=== PATIENT | female | born 1945 | race Caucasian/White ===

== ENCOUNTER 2017-08-14 08:18 | Inpatient (IN) ==
[2017-08-14] MEDS ORDERED: methylPREDNISolone 125 MG/2 ML VIAL IVP ONE (08:49)
--- NOTE | 2017-08-14 08:54 | Emergency Department Note ---
Disposition Clinical Impression: Acute exacerbation of chronic obstructive airways disease, Hypercarbia, Respiratory distress Disposition: Admitted As Inpatient Condition: Fair Referrals: Phu Hensley DO [Primary Care Provider] - Forms: ED Satisfaction Letter Time of Disposition: 11:14 SOB HPI - General Chief Complaint: ED Shortness of Breath/Dyspnea Stated Complaint: LISS-headache Time Seen by Provider: 08/14/17 08:29 Source: family Limitations: physical limitation Nursing Notes Reviewed: Yes Vital Signs Reviewed: Yes - History of Present Illness 72-year-old female in apparent respiratory distress was brought to the emergency department by her [id number]. The patient is a rather poor historian herself, however the [id number] states that the patient has been dealing with low oxygen saturation at home for the past several days. The [id number] does describe a persistent cough that is productive of a whitish colored sputum. [id number]-tek denies any known fevers or complaints of chest pain, vomiting, abdominal pain, or noticeable hemoptysis. The patient does have a history of COPD, asthma, and has been in acute respiratory distress syndrome in the past. She denies any smoking. She is on oxygen by nasal cannula at 3 L/m continuously at home. The syeqaser-et-zss states that the patient has seen a legal services manager in the past but this has been quite some time since she has had formal pulmonology evaluation. The patient does state that she sustained a mechanical fall earlier this morning. She denies any known head injury, however she does complain of a worsening headache from her baseline "headaches". Pt Subjective Complaint: shortness of breath, cough Onset (ago): unknown Severity: severe Improves with: nothing Worsens with: nothing Known history of: COPD, asthma Associated symptoms: Reports: cough, wheezing, sputum production. Denies: chest pain, pain with inspiration, fever, orthopnea, hemoptysis, nausea/vomiting , abdominal pain Treatment prior to arrival: oxygen Cough present: Yes Cough Description: Involuntary Cough Frequency: Persistent Sputum production: Yes Sputum Amount: Moderate Sputum Color: Cream - Related Data Home oxygen amount: 3 liters Home Medications Medication Instructions Recorded Confirmed Albuterol Sulfate 2.5 mg IH Q4HR PRN 10/29/16 08/14/17 Amitriptyline [Elavil] 25 mg PO DAILY 10/29/16 08/14/17 BuPROPion SR (12 HR) [Wellbutrin 150 mg PO DAILY 10/29/16 08/14/17 SR] Diltiazem CD (24hr) [Cardizem CD] 240 mg PO DAILY 10/29/16 08/14/17 Furosemide [Lasix] 40 mg PO DAILY 10/29/16 08/14/17 LORazepam [Ativan] 1 mg PO BID PRN 10/29/16 08/14/17 Magnesium Oxide [Magnesium] 400 mg PO DAILY 10/29/16 08/14/17 Metoprolol [Lopressor] 50 mg PO BID 10/29/16 08/14/17 Nitroglycerin [Nitrostat] 0.4 mg SL Q5M PRN 10/29/16 08/14/17 Pantoprazole Sodium [Protonix] 40 mg PO DAILY 10/29/16 08/14/17 PredniSONE [Madhu] 5 mg PO MOWEFR 10/29/16 08/14/17 Roflumilast [Daliresp] 500 mcg PO DAILY 10/29/16 08/14/17 Sertraline [Zoloft] 100 mg PO DAILY 10/29/16 08/14/17 Acetaminophen/Butalbital/Caffe 1 each PO Q6HR PRN 08/14/17 08/14/17 [Fioricet] Cyclobenzaprine [Flexeril] 10 mg PO TID PRN 08/14/17 08/14/17 Allergies Allergy/AdvReac Type Severity Reaction Status Date / Time No Known Allergies Allergy Verified 08/14/17 10:26 All systems ED: reviewed and negative except as stated. Constitutional: Denies: fever, chills, weakness, weight change Eyes: Denies: eye pain, eye discharge, vision change ENT ED: Denies: ear pain, throat pain, dental pain, hearing loss, epistaxis, congestion, dysphagia Cardiovascular: Denies: chest pain, palpitations, dyspnea on exertion, edema, syncope Respiratory: Reports: as per HPI, cough, dyspnea, wheezes, sputum production. Denies: hemoptysis, stridor Gastrointestinal: Denies: abdominal pain, nausea, vomiting, diarrhea, constipation, hematemesis, melena, hematochezia Genitourinary: Denies: dysuria, frequency, hematuria, discharge Musculoskeletal: Denies: back pain, neck pain, arthralgia, myalgia Integumentary: Denies: rash, abrasion, lesions Neurological: Denies: headache, weakness, numbness, paresthesias, confusion, abnormal gait, vertigo Psychiatric: Denies: anxiety, depression, suicidal thoughts, homicidal thoughts , auditory hallucinations, visual hallucinations Endocrine: Denies: fatigue Hematological/Lymphatic: Denies: easy bleeding, easy bruising Allergic/Immunologic: Denies: facial swelling, urticaria Past Medical History - Past Medical History Attestation: Yes The following information was validated with the patient. Source: patient, obtained from family Medical history: Reports: atrial fibrillation, COPD, hyperlipidemia, hypertension, other Surgical history: Reports: other Psychiatric history: Reports: no psych history [employer] history: Reports: bilateral tubal ligation - Social History Smoking Status: Former smoker Smokeless Tobacco Status: No Alcohol use: Reports: none Drug use: Reports: none Physical Exam - General Limitations: physical limitation General appearance: in distress - Head Head exam: atraumatic, normocephalic, normal inspection - Eye Eye exam: Present: normal appearance, PERRL, EOMI. Absent: nystagmus - Expanded Eye Exam Pupils: Bilateral: regular, round, reactive, size (3) - ENT ENT exam: mucous membranes moist - Neck Neck exam: Present: normal inspection, full ROM, trachea midline - Chest Chest inspection: Present: normal inspection, symmetric chest wall rise - Respiratory Respiratory exam: Present: respiratory distress (Moderate to severe), wheezes, accessory muscle use, other (Moderate expiratory wheezes noted bilaterally lung sounds coarse to auscultation throughout periphery). Absent: prolonged expiratory phase - Cardiovascular Cardiovascular exam: Present: normal rhythm, irregular rhythm, normal heart sounds - Abdominal Exam Abdominal exam: Present: soft, Non-Tender, normal bowel sounds. Absent: mass - Extremities Exam Extremities exam: Present: normal inspection, full ROM. Absent: tenderness, pedal edema - Expanded Neurological Exam Motor strength - LUE: 5/5 Motor strength - RUE: 5/5 Motor strength - LLE: 5/5 Motor strength - RLE: 5/5 - Psychiatric Psychiatric exam: Present: normal affect, normal mood - Skin Skin exam: Present: warm, dry, intact, normal color. Absent: cyanosis, diaphoresis, pallor Course Course Narrative: I spoke with Dr. Veras regarding this patient's case. He has had face-to- face time with the patient and reviewed her laboratory and radiology results. Patient will be admitted to the hospitalist service for further treatment of an acute exacerbation of COPD. 1105: I spoke with Dr. Chen of the hospitalist service. He is except the patient for admission to their services for further treatment. Vital Signs Temperature 98.1 F 08/14/17 08:25 Pulse Rate 101 08/14/17 08:25 Respiratory Rate 18 08/14/17 08:25 Blood Pressure 123/93 08/14/17 08:25 O2 Sat by Pulse Oximetry 86 08/14/17 08:25 Temperature 98.1 F 08/14/17 08:51 Pulse Rate 88 08/14/17 11:02 Respiratory Rate 20 08/14/17 11:02 Blood Pressure 125/78 08/14/17 11:02 O2 Sat by Pulse Oximetry 94 08/14/17 11:02 Oxygen Delivery Oxygen Delivery Bipap Shortness of Breath/Dyspnea - Medical Records Medical records reviewed: Yes I reviewed the patient's medical records. - Lab Data Lab results reviewed: Yes I reviewed the patient's lab results. Lab results narrative: Lab Results 08/14/17 08/14/17 08/14/17 Range/Units 08:45 08:45 08:45 WBC 6.4 (4.3-11.1) K/mcL RBC 3.94 (3.82-4.97) M/mcL Hgb 12.0 (11.5-15.4) g/dL Hct 41.2 (35.3-44.9) % MCV 104.6 H (83.0-100.0) fL MCH 30.5 (28.0-33.3) pg MCHC 29.1 L (31.6-35.5) g/dL RDW 13.2 (11.5-14.5) % Plt Count 168 (140-400) K/mcL MPV 10.3 (9.4-12.4) fL Immature Gran % 0.5 (0-4) % Seg Neutrophils % 69.6 % Lymphocytes % 14.4 % Monocytes % 6.9 % Eosinophils % 8.3 % Basophils % 0.3 % Neutrophils # 4.4 (1.6-8.9) K/mcL Lymphocytes # 0.9 (0.6-4.6) K/mcL Monocytes # 0.4 (0.0-1.3) K/mcL Eosinophils # 0.5 (0.0-0.6) K/mcL Basophils # 0.0 (0.0-0.2) K/mcL APTT 30.2 (26.0-36.0) Seconds D-Dimer 2099 H (0-500) ng/mLFEU ABG pH (7.32-7.45) pH Units ABG pCO2 (35-45) mmHg ABG pO2 (85-104) mmHg ABG HCO3 (21-27) mEq/L ABG Total CO2 (20-26) mEq/L ABG O2 Saturation (95-98) % ABG Base Excess (-2 to 3) mEq/L Carboxyhemoglobin (0-5) % O2 Delivery Device Inspired O2 (1-15=lpm [id number]=%) Tidal Volume cc PEEP cm H2O Sodium 143 (136-145) mEq/L Potassium 4.3 (3.5-5.1) mEq/L Chloride 93 L (98-107) mEq/L Carbon Dioxide 49 H* (23-29) mEq/L BUN 13 (8-23) mg/dL Creatinine 0.66 (0.60-1.20) mg/dL Est GFR ( Amer) > 60 (> 60) Est GFR (Non-Af Amer) > 60 (> 60) BUN/Creatinine Ratio 20 (6-26) Glucose 126 H (70-105) mg/dL Calculated Osmolality 298 (280-300) Lactic Acid (0.5-2.2) mmol/L Calcium 9.3 (8.6-10.3) mg/dL Magnesium 2.1 (1.6-2.6) mg/dL Troponin I < 0.03 (< 0.04) ng/mL B-Natriuretic Peptide (Less than 100) pg/mL Urine Color (Yellow) Urine Clarity (Clear) Urine pH (5.0-8.0) pH Units Ur Specific Blanchard (1.010-1.025) Urine Protein (Neg-Trace) mg/dL Urine Glucose (UA) (Normal) mg/dL Urine Ketones (Negative) mg/dL Urine Blood (Negative) Urine Nitrite (Negative) Urine Bilirubin (Negative) Urine Urobilinogen (Normal) mg/dL Ur Leukocyte Esterase (Negative) Urine Microscopic RBC (0-3) per hpf Urine Microscopic WBC (0-3) per hpf Ur Squamous Epith Cells (None-Few) per lpf Urine Bacteria (None-Few) per hpf Hyaline Casts (None-Few) per lpf Ur Culture Indicated? (NO) 08/14/17 08/14/17 08/14/17 Range/Units 08:45 08:45 08:45 WBC (4.3-11.1) K/mcL RBC (3.82-4.97) M/mcL Hgb (11.5-15.4) g/dL Hct (35.3-44.9) % MCV (83.0-100.0) fL MCH (28.0-33.3) pg MCHC (31.6-35.5) g/dL RDW (11.5-14.5) % Plt Count (140-400) K/mcL MPV (9.4-12.4) fL Immature Gran % (0-4) % Seg Neutrophils % % Lymphocytes % % Monocytes % % Eosinophils % % Basophils % % Neutrophils # (1.6-8.9) K/mcL Lymphocytes # (0.6-4.6) K/mcL Monocytes # (0.0-1.3) K/mcL Eosinophils # (0.0-0.6) K/mcL Basophils # (0.0-0.2) K/mcL APTT (26.0-36.0) Seconds D-Dimer (0-500) ng/mLFEU ABG pH (7.32-7.45) pH Units ABG pCO2 (35-45) mmHg ABG pO2 (85-104) mmHg ABG HCO3 (21-27) mEq/L ABG Total CO2 (20-26) mEq/L ABG O2 Saturation (95-98) % ABG Base Excess (-2 to 3) mEq/L Carboxyhemoglobin 3.8 (0-5) % O2 Delivery Device Inspired O2 (1-15=lpm [id number]=%) Tidal Volume cc PEEP cm H2O Sodium (136-145) mEq/L Potassium (3.5-5.1) mEq/L Chloride (98-107) mEq/L Carbon Dioxide (23-29) mEq/L BUN (8-23) mg/dL Creatinine (0.60-1.20) mg/dL Est GFR ( Amer) (> 60) Est GFR (Non-Af Amer) (> 60) BUN/Creatinine Ratio (6-26) Glucose (70-105) mg/dL Calculated Osmolality (280-300) Lactic Acid 0.7 (0.5-2.2) mmol/L Calcium (8.6-10.3) mg/dL Magnesium (1.6-2.6) mg/dL Troponin I (< 0.04) ng/mL B-Natriuretic Peptide 206 H (Less than 100) pg/mL Urine Color (Yellow) Urine Clarity (Clear) Urine pH (5.0-8.0) pH Units Ur Specific Blanchard (1.010-1.025) Urine Protein (Neg-Trace) mg/dL Urine Glucose (UA) (Normal) mg/dL Urine Ketones (Negative) mg/dL Urine Blood (Negative) Urine Nitrite (Negative) Urine Bilirubin (Negative) Urine Urobilinogen (Normal) mg/dL Ur Leukocyte Esterase (Negative) Urine Microscopic RBC (0-3) per hpf Urine Microscopic WBC (0-3) per hpf Ur Squamous Epith Cells (None-Few) per lpf Urine Bacteria (None-Few) per hpf Hyaline Casts (None-Few) per lpf Ur Culture Indicated? (NO) 08/14/17 08/14/17 Range/Units 09:38 09:42 WBC (4.3-11.1) K/mcL RBC (3.82-4.97) M/mcL Hgb (11.5-15.4) g/dL Hct (35.3-44.9) % MCV (83.0-100.0) fL MCH (28.0-33.3) pg MCHC (31.6-35.5) g/dL RDW (11.5-14.5) % Plt Count (140-400) K/mcL MPV (9.4-12.4) fL Immature Gran % (0-4) % Seg Neutrophils % % Lymphocytes % % Monocytes % % Eosinophils % % Basophils % % Neutrophils # (1.6-8.9) K/mcL Lymphocytes # (0.6-4.6) K/mcL Monocytes # (0.0-1.3) K/mcL Eosinophils # (0.0-0.6) K/mcL Basophils # (0.0-0.2) K/mcL APTT (26.0-36.0) Seconds D-Dimer (0-500) ng/mLFEU ABG pH 7.24 L (7.32-7.45) pH Units ABG pCO2 119 H* (35-45) mmHg ABG pO2 202 H (85-104) mmHg ABG HCO3 51 H (21-27) mEq/L ABG Total CO2 55 H (20-26) mEq/L ABG O2 Saturation 99 H (95-98) % ABG Base Excess 18 H (-2 to 3) mEq/L Carboxyhemoglobin (0-5) % O2 Delivery Device BiPAP Inspired O2 60.0 (1-15=lpm sb75-965=%) Tidal Volume 16 cc PEEP 6 cm H2O Sodium (136-145) mEq/L Potassium (3.5-5.1) mEq/L Chloride (98-107) mEq/L Carbon Dioxide (23-29) mEq/L BUN (8-23) mg/dL Creatinine (0.60-1.20) mg/dL Est GFR ( Amer) (> 60) Est GFR (Non-Af Amer) (> 60) BUN/Creatinine Ratio (6-26) Glucose (70-105) mg/dL Calculated Osmolality (280-300) Lactic Acid (0.5-2.2) mmol/L Calcium (8.6-10.3) mg/dL Magnesium (1.6-2.6) mg/dL Troponin I (< 0.04) ng/mL B-Natriuretic Peptide (Less than 100) pg/mL Urine Color Yellow (Yellow) Urine Clarity Cloudy A (Clear) Urine pH 6.0 (5.0-8.0) pH Units Ur Specific Blanchard 1.020 (1.010-1.025) Urine Protein 30 H (Neg-Trace) mg/dL Urine Glucose (UA) Normal (Normal) mg/dL Urine Ketones Negative (Negative) mg/dL Urine Blood Negative (Negative) Urine Nitrite Negative (Negative) Urine Bilirubin Negative (Negative) Urine Urobilinogen Normal (Normal) mg/dL Ur Leukocyte Esterase Negative (Negative) Urine Microscopic RBC 0-3 (0-3) per hpf Urine Microscopic WBC 0-3 (0-3) per hpf Ur Squamous Epith Cells Many H (None-Few) per lpf Urine Bacteria Many H (None-Few) per hpf Hyaline Casts None Seen (None-Few) per lpf Ur Culture Indicated? NO (NO) Result diagrams: 08/14/17 08:45 08/14/17 08:45 Lab Results 08/14/17 08/14/17 08/14/17 Range/Units 08:45 08:45 08:45 WBC 6.4 (4.3-11.1) K/mcL RBC 3.94 (3.82-4.97) M/mcL Hgb 12.0 (11.5-15.4) g/dL Hct 41.2 (35.3-44.9) % MCV 104.6 H (83.0-100.0) fL MCH 30.5 (28.0-33.3) pg MCHC 29.1 L (31.6-35.5) g/dL RDW 13.2 (11.5-14.5) % Plt Count 168 (140-400) K/mcL MPV 10.3 (9.4-12.4) fL Immature Gran % 0.5 (0-4) % Seg Neutrophils % 69.6 % Lymphocytes % 14.4 % Monocytes % 6.9 % Eosinophils % 8.3 % Basophils % 0.3 % Neutrophils # 4.4 (1.6-8.9) K/mcL Lymphocytes # 0.9 (0.6-4.6) K/mcL Monocytes # 0.4 (0.0-1.3) K/mcL Eosinophils # 0.5 (0.0-0.6) K/mcL Basophils # 0.0 (0.0-0.2) K/mcL APTT 30.2 (26.0-36.0) Seconds D-Dimer 2099 H (0-500) ng/mLFEU ABG pH (7.32-7.45) pH Units ABG pCO2 (35-45) mmHg ABG pO2 (85-104) mmHg ABG HCO3 (21-27) mEq/L ABG Total CO2 (20-26) mEq/L ABG O2 Saturation (95-98) % ABG Base Excess (-2 to 3) mEq/L Carboxyhemoglobin (0-5) % O2 Delivery Device Inspired O2 (1-15=lpm qs68-023=%) Tidal Volume cc PEEP cm H2O Sodium 143 (136-145) mEq/L Potassium 4.3 (3.5-5.1) mEq/L Chloride 93 L (98-107) mEq/L Carbon Dioxide 49 H* (23-29) mEq/L BUN 13 (8-23) mg/dL Creatinine 0.66 (0.60-1.20) mg/dL Est GFR ( Amer) > 60 (> 60) Est GFR (Non-Af Amer) > 60 (> 60) BUN/Creatinine Ratio 20 (6-26) Glucose 126 H (70-105) mg/dL Calculated Osmolality 298 (280-300) Lactic Acid (0.5-2.2) mmol/L Calcium 9.3 (8.6-10.3) mg/dL Magnesium 2.1 (1.6-2.6) mg/dL Troponin I < 0.03 (< 0.04) ng/mL B-Natriuretic Peptide (Less than 100) pg/mL Urine Color (Yellow) Urine Clarity (Clear) Urine pH (5.0-8.0) pH Units Ur Specific Blanchard (1.010-1.025) Urine Protein (Neg-Trace) mg/dL Urine Glucose (UA) (Normal) mg/dL Urine Ketones (Negative) mg/dL Urine Blood (Negative) Urine Nitrite (Negative) Urine Bilirubin (Negative) Urine Urobilinogen (Normal) mg/dL Ur Leukocyte Esterase (Negative) Urine Microscopic RBC (0-3) per hpf Urine Microscopic WBC (0-3) per hpf Ur Squamous Epith Cells (None-Few) per lpf Urine Bacteria (None-Few) per hpf Hyaline Casts (None-Few) per lpf Ur Culture Indicated? (NO) 08/14/17 08/14/17 08/14/17 Range/Units 08:45 08:45 08:45 WBC (4.3-11.1) K/mcL RBC (3.82-4.97) M/mcL Hgb (11.5-15.4) g/dL Hct (35.3-44.9) % MCV (83.0-100.0) fL MCH (28.0-33.3) pg MCHC (31.6-35.5) g/dL RDW (11.5-14.5) % Plt Count (140-400) K/mcL MPV (9.4-12.4) fL Immature Gran % (0-4) % Seg Neutrophils % % Lymphocytes % % Monocytes % % Eosinophils % % Basophils % % Neutrophils # (1.6-8.9) K/mcL Lymphocytes # (0.6-4.6) K/mcL Monocytes # (0.0-1.3) K/mcL Eosinophils # (0.0-0.6) K/mcL Basophils # (0.0-0.2) K/mcL APTT (26.0-36.0) Seconds D-Dimer (0-500) ng/mLFEU ABG pH (7.32-7.45) pH Units ABG pCO2 (35-45) mmHg ABG pO2 (85-104) mmHg ABG HCO3 (21-27) mEq/L ABG Total CO2 (20-26) mEq/L ABG O2 Saturation (95-98) % ABG Base Excess (-2 to 3) mEq/L Carboxyhemoglobin 3.8 (0-5) % O2 Delivery Device Inspired O2 (1-15=lpm ud39-496=%) Tidal Volume cc PEEP cm H2O Sodium (136-145) mEq/L Potassium (3.5-5.1) mEq/L Chloride (98-107) mEq/L Carbon Dioxide (23-29) mEq/L BUN (8-23) mg/dL Creatinine (0.60-1.20) mg/dL Est GFR ( Amer) (> 60) Est GFR (Non-Af Amer) (> 60) BUN/Creatinine Ratio (6-26) Glucose (70-105) mg/dL Calculated Osmolality (280-300) Lactic Acid 0.7 (0.5-2.2) mmol/L Calcium (8.6-10.3) mg/dL Magnesium (1.6-2.6) mg/dL Troponin I (< 0.04) ng/mL B-Natriuretic Peptide 206 H (Less than 100) pg/mL Urine Color (Yellow) Urine Clarity (Clear) Urine pH (5.0-8.0) pH Units Ur Specific Blanchard (1.010-1.025) Urine Protein (Neg-Trace) mg/dL Urine Glucose (UA) (Normal) mg/dL Urine Ketones (Negative) mg/dL Urine Blood (Negative) Urine Nitrite (Negative) Urine Bilirubin (Negative) Urine Urobilinogen (Normal) mg/dL Ur Leukocyte Esterase (Negative) Urine Microscopic RBC (0-3) per hpf Urine Microscopic WBC (0-3) per hpf Ur Squamous Epith Cells (None-Few) per lpf Urine Bacteria (None-Few) per hpf Hyaline Casts (None-Few) per lpf Ur Culture Indicated? (NO) 08/14/17 08/14/17 Range/Units 09:38 09:42 WBC (4.3-11.1) K/mcL RBC (3.82-4.97) M/mcL Hgb (11.5-15.4) g/dL Hct (35.3-44.9) % MCV (83.0-100.0) fL MCH (28.0-33.3) pg MCHC (31.6-35.5) g/dL RDW (11.5-14.5) % Plt Count (140-400) K/mcL MPV (9.4-12.4) fL Immature Gran % (0-4) % Seg Neutrophils % % Lymphocytes % % Monocytes % % Eosinophils % % Basophils % % Neutrophils # (1.6-8.9) K/mcL Lymphocytes # (0.6-4.6) K/mcL Monocytes # (0.0-1.3) K/mcL Eosinophils # (0.0-0.6) K/mcL Basophils # (0.0-0.2) K/mcL APTT (26.0-36.0) Seconds D-Dimer (0-500) ng/mLFEU ABG pH 7.24 L (7.32-7.45) pH Units ABG pCO2 119 H* (35-45) mmHg ABG pO2 202 H (85-104) mmHg ABG HCO3 51 H (21-27) mEq/L ABG Total CO2 55 H (20-26) mEq/L ABG O2 Saturation 99 H (95-98) % ABG Base Excess 18 H (-2 to 3) mEq/L Carboxyhemoglobin (0-5) % O2 Delivery Device BiPAP Inspired O2 60.0 (1-15=lpm xy93-351=%) Tidal Volume 16 cc PEEP 6 cm H2O Sodium (136-145) mEq/L Potassium (3.5-5.1) mEq/L Chloride (98-107) mEq/L Carbon Dioxide (23-29) mEq/L BUN (8-23) mg/dL Creatinine (0.60-1.20) mg/dL Est GFR ( Amer) (> 60) Est GFR (Non-Af Amer) (> 60) BUN/Creatinine Ratio (6-26) Glucose (70-105) mg/dL Calculated Osmolality (280-300) Lactic Acid (0.5-2.2) mmol/L Calcium (8.6-10.3) mg/dL Magnesium (1.6-2.6) mg/dL Troponin I (< 0.04) ng/mL B-Natriuretic Peptide (Less than 100) pg/mL Urine Color Yellow (Yellow) Urine Clarity Cloudy A (Clear) Urine pH 6.0 (5.0-8.0) pH Units Ur Specific Blanchard 1.020 (1.010-1.025) Urine Protein 30 H (Neg-Trace) mg/dL Urine Glucose (UA) Normal (Normal) mg/dL Urine Ketones Negative (Negative) mg/dL Urine Blood Negative (Negative) Urine Nitrite Negative (Negative) Urine Bilirubin Negative (Negative) Urine Urobilinogen Normal (Normal) mg/dL Ur Leukocyte Esterase Negative (Negative) Urine Microscopic RBC 0-3 (0-3) per hpf Urine Microscopic WBC 0-3 (0-3) per hpf Ur Squamous Epith Cells Many H (None-Few) per lpf Urine Bacteria Many H (None-Few) per hpf Hyaline Casts None Seen (None-Few) per lpf Ur Culture Indicated? NO (NO) - Radiology Data Radiology results reviewed: Yes I reviewed the patient's radiology results. Chest X-Ray 08/14/17 08:30 IMPRESSION: No acute pulmonary process. D/ / Frederick Lee MD / Frederick Lee MD Interpreting Provider: Frederick Lee MD Cervical Spine CT 08/14/17 09:00 IMPRESSION: No acute abnormality of the cervical spine. RECOMMENDATIONS: The Fleischner society pulmonary nodule recommendations are usually for follow-up and management of pulmonary nodules smaller than 8 mm detected incidentally on non-screening CT. Nodule size between 6-8 mm low risk patients - initial follow-up CT at 6-12 months and then at 18-24 months if no change high risk patients - initial follow-up CT at 3-6 months and then at 9-12 and 24 months if no change Note: newly detected indeterminate nodule in persons 35 years of age or older. low risk patients - minimal or absent history of smoking and or other known risk factors high risk patients - history of smoking or of other known risk factors Based on current guidelines*, a follow-up unenhanced low-dose CT can be obtained at clinical discretion. *Tiana H, Rene JM, Sahy G, Todd CJ, Salvador JR, Lu DP, et al. Guidelines for Management of Small Pulmonary Nodules Detected on CT Scans: A Statement from the Fleischner Society. Radiology 2005;237:395-400. D/ / Frederick Lee MD / Frederick Lee MD Interpreting Provider: Frederick Lee MD Head CT 08/14/17 09:00 IMPRESSION: No acute intracranial abnormality. D/ / Frederick Lee MD / Frederick Lee MD Interpreting Provider: Frederick Lee MD Chest CTA 08/14/17 09:27 IMPRESSION: No evidence of pulmonary embolus. Emphysema. Secretions and mucous plugging within the bronchi lower lobes and lingula, worse on the right. Multiple tree-in-bud nodules in the lower lobes, likely infectious or inflammatory in etiology. Ground-glass nodules and nodular opacities in the lung apices most prominent left apex. Findings likely postinflammatory in represent scarring. Recommend follow-up in 3 months. D/ / Marietta Henriquez MD / Marietta Henriquez MD Interpreting Provider: Marietta Henriquez MD - EKG Data EKG attestation: Yes I reviewed and interpreted this EKG. EKG results narrative: EKG reviewed by Dr. Veras as well. EKG shows atrial fibrillation with a right bundle branch block at a rate of 94 bpm. QRS duration 93, QT/QTc interval 349/401. No ectopy noted. No ST elevation noted. No significant changes compared to an EKG dated from 10/31/14.
[2017-08-14 09:11] LABS: Basophils % 0.3 %; Eosinophils # 0.5 K/mcL (0.0-0.6); Eosinophils % 8.3 %; Hematocrit 41.2 % (35.3-44.9); Immature Granulocytes % 0.5 % (0-4); Lymphocytes # 0.9 K/mcL (0.6-4.6); Lymphocytes % 14.4 %; Mean Corpuscular HGB Conc 29.1 g/dL (31.6-35.5); Mean Corpuscular Hemoglobin 30.5 pg (28.0-33.3); Mean Corpuscular Volume 104.6 fL (83.0-100.0); Mean Platelet Volume 10.3 fL (9.4-12.4); Monocytes # 0.4 K/mcL (0.0-1.3); Monocytes % 6.9 %; Neutrophils # 4.4 K/mcL (1.6-8.9); Platelet Count 168 K/mcL (140-400); Red Blood Count 3.94 M/mcL (3.82-4.97); Red Cell Distribution Width 13.2 % (11.5-14.5); Segmented Neutrophils % 69.6 %
[2017-08-14 09:19] LABS: Activated Partial Thrombo Time 30.2 Seconds (26.0-36.0)
[2017-08-14] MEDS ORDERED: Acetaminophen 325 MG TABLET PO ONE (09:36)
[2017-08-14 09:43] LABS: ABG Base Excess 18 mEq/L (-2 to 3); ABG HCO3 51 mEq/L (21-27); ABG Oxygen Saturation 99 % (95-98); ABG PCO2 119 mmHg (35-45); ABG PH 7.24 pH Units (7.32-7.45); ABG PO2 202 mmHg (85-104); ABG TCO2 55 mEq/L (20-26); Blood Gas PEEP 6 cm H2O; Blood Gas VT 16 cc
[2017-08-14 09:49] LABS: BUN/Creatinine Ratio 20 (6-26); Blood Urea Nitrogen 13 mg/dL (8-23); Calcium 9.3 mg/dL (8.6-10.3); Chloride 93 mEq/L (98-107); Glucose 126 mg/dL (70-105); Magnesium 2.1 mg/dL (1.6-2.6); Osmolality,Calculated 298 (280-300); Potassium 4.3 mEq/L (3.5-5.1); Sodium 143 mEq/L (136-145); Troponin I < 0.03 ng/mL (< 0.04); eGFR For African Americans > 60 (> 60); eGFR For Non-African Americans > 60 (> 60)
[2017-08-14 09:53] LABS: Bilirubin,Urine Negative (Negative); Blood,Urine Negative (Negative); Clarity,Urine Cloudy (Clear); Color,Urine Yellow (Yellow); Glucose,Urine (UA) Normal (Normal); Ketones,Urine Negative (Negative); Leukocyte Esterase,Urine Negative (Negative); Nitrite,Urine Negative (Negative); Protein,Urine 30 mg/dL (Neg-Trace); Urobilinogen,Urine Normal (Normal)
[2017-08-14 09:54] LABS: Carbon Dioxide 49 mEq/L (23-29)
[2017-08-14 09:56] LABS: Bacteria,Urine Many per hpf (None-Few); Hyaline Casts,Urine None Seen per lpf (None-Few); RBC,Urine 0-3 per hpf (0-3); Squamous Epithelial Cell,Urine Many per lpf (None-Few); WBC,Urine 0-3 per hpf (0-3)
[2017-08-14] MEDS ORDERED: *HR* LORazepam 2 MG/ML VIAL IVP ONE (10:27)
[2017-08-14] MEDS ORDERED: Levofloxacin 750 MG/150 ML 750 MG/150 ML BAG IVPB ONE (11:04)
--- NOTE | 2017-08-14 11:52 | Internal Med History&Physical ---
Date of Encounter: 08/14/17 Time of Encounter: 11:40 Assessment and Plan (1) Acute on chronic respiratory failure with hypoxia and hypercapnia Current visit: Yes Status: Acute From COPD exacerbation. Possible lower respiratory tract infection. Patient has 2 SIRS criteria for tachycardia and RR but does not appear septic, appears more respiratory distress related. Blood cultures obtained, vitals are monitored. Currently afebrile without any leukocytosis. Patient is started on IV antibiotics. Also having mucus plugs contributing to distress. Will need to monitor about plugs and on bipap. - Continue Solumedrol - Rocephin and Levaquin - Duo Nebs scheduled - Mucinex - Respiratory cultures, procalcitonin - Continue Bipap as needed - Titrate Oxygen to attain SpO2 90-93% (2) Headache Current visit: Yes Status: Acute SHe initially came to ED for headache. She states she has headache every day for years. She has history of intracerbral aneurysm repair with metal clips, therefore cannot do MRI. Headache seems SHAMA related but given her history I will consult Neurology and obtain CT angiogram. Qualifiers: Headache type: unspecified Headache chronicity pattern: acute headache Intractability: intractable Qualified Code(s): R51 - Headache (3) COPD exacerbation Current visit: Yes Status: Acute Continue treatment as above. (4) Lower respiratory tract infection Current visit: Yes Status: Acute Based on clinical presentation and findings on CTA. Will continue antibiotics. (5) Atrial fibrillation Current visit: Yes Status: Acute Not on anticoagulation, does have h/o GIB Currently HR normal Continue home metoprolol and cardizem Qualifiers: Atrial fibrillation type: chronic Qualified Code(s): I48.2 - Chronic atrial fibrillation (6) Hypertension Current visit: Yes Status: Acute Continue lopressor and cardizem Qualifiers: Hypertension type: essential hypertension Qualified Code(s): I10 - Essential (primary) hypertension (7) History of GI bleed Current visit: Yes Status: Acute Not on anticoagulation (8) Aneurysm, cerebral Current visit: Yes Status: Acute (9) H/O cerebral aneurysm repair Current visit: Yes Status: Acute (10) Multiple pulmonary nodules determined by computed tomography of lung Current visit: Yes Status: Acute Will need outpatient follow-up (11) DVT prophylaxis Current visit: Yes Status: Acute SCDs Internal Medicine - H&P: HPI History of present illness: Ms. Gaines is a 72 year old female with history of COPD on 3L O2 at home, asthma, atrial fibrillation not on anticoagulation, HTN, H/O GIB, cerebral aneurysms s/p aneurysm clips presented for headache and shortness of breath. For one week has dyspnea worse than baseline with subjective fevers. She also has chronic orthopnea and daughter in law at bedside notes that she has to sleep elevated at night, and PND as well. No sick contacts, no chest pain, palpitations, numbness/tingling, extremity edema. Patient also has acutely worsening headaches. She wakes up daily with headaches but today was most severe. By time she presented to ED she was in severe SOB requiring bipap. In the ED A CT head was negative for mass, hemorrohage, hydrocephalus, or acute infarct. A CTA chest was negative for PE, showed mucus plugging with tree-in- bud nodules. An EKG showed atrial fibrillation without ST/T wave changes, and troponin was negative. ABG showed respiratory acidosis with pH 7.24, pCO2 119, HCO 51. patient improved on bipap and she was given solu medrol, ativan, Levaquin, mag sulfate. Past Med Surg Social Fam HX - Past Medical History Medical history: atrial fibrillation, COPD, hyperlipidemia, hypertension, other Psychiatric history: no psych history - Past Surgical History Surgical History: other - Social History Smoking Status: Former smoker Smokeless Tobacco Status: No Alcohol use: none Drug use: none Internal Medicine - H&P: Meds Albuterol Sulfate 2.5 mg IH Q4HR PRN 10/29/16 [History] Amitriptyline [Elavil] 25 mg PO DAILY 10/29/16 [History] BuPROPion SR (12 HR) [Wellbutrin SR] 150 mg PO DAILY 10/29/16 [History] Diltiazem CD (24hr) [Cardizem CD] 240 mg PO DAILY 10/29/16 [History] Furosemide [Lasix] 40 mg PO DAILY 10/29/16 [History] LORazepam [Ativan] 1 mg PO BID PRN 10/29/16 [History] Magnesium Oxide [Magnesium] 400 mg PO DAILY 10/29/16 [History] Metoprolol [Lopressor] 50 mg PO BID 10/29/16 [History] Nitroglycerin [Nitrostat] 0.4 mg SL Q5M PRN 10/29/16 [History] Pantoprazole Sodium [Protonix] 40 mg PO DAILY 10/29/16 [History] PredniSONE [Madhu] 5 mg PO MOWEFR 10/29/16 [History] Roflumilast [Daliresp] 500 mcg PO DAILY 10/29/16 [History] Sertraline [Zoloft] 100 mg PO DAILY 10/29/16 [History] Acetaminophen/Butalbital/Caffe [Fioricet] 1 each PO Q6HR PRN 08/14/17 [History] Cyclobenzaprine [Flexeril] 10 mg PO TID PRN 08/14/17 [History] 3 Allergy/AdvReac Type Severity Reaction Status Date / Time No Known Allergies Allergy Verified 08/14/17 10:26 All Systems PM: A 10-system review of systems was performed and is negative for pertinent findings except as documented above in the HPI. Review of systems: as per HPI. In addition: admits to nausea without vomiting. denies photophobia, auras, phonophobia, vertigo, tinnitus. - Constitutional Vitals: Temp Pulse Resp BP Pulse Ox 98.1 F 82 20 127/67 94 08/14/17 08:51 08/14/17 11:27 08/14/17 11:27 08/14/17 11:27 08/14/17 11:27 General appearance: Present: A&O X 3, answers questions appropriately - Head Head exam: Present: atraumatic, normocephalic - Eye Eye exam: Present: PERRL, conjuntiva pink, sclera anicteric Pupils: Present: PERRL - Neck Neck exam general surgery: Present: supple, trachea midline. Absent: lymphadenopathy - Respiratory Respiratory exam: Present: decreased breath sounds, respiratory distress. Absent: accessory muscle use, rales, rhonchi, wheezes Additional comments: Exam limited due to bipap machine in use. - Cardiovascular Cardiovascular exam: Present: irregular rhythm, +S1, +S2. Absent: diastolic murmur, gallop, rubs, systolic murmur - GI/Abdominal GI/Abdominal exam: Present: normal bowel sounds, soft, no peritoneal signs. Absent: distended, tenderness - Extremities Exam Extremities exam: Present: warm, radial pulses palpable and symmetrical. Absent : calf tenderness, cyanotic, pedal edema - Neurological Exam Neurological exam: Present: CN II-XII intact, oriented X3, no focal deficits. Absent: pronater drift, facial droop, speech deficit - Skin Skin exam: Present: dry, intact Internal Med - H&P Results - Labs CBC & Chem 7: 08/14/17 08:45 08/14/17 08:45 Labs: Short CBC 08/14/17 Range/Units 08:45 WBC 6.4 (4.3-11.1) K/mcL Hgb 12.0 (11.5-15.4) g/dL Hct 41.2 (35.3-44.9) % Plt Count 168 (140-400) K/mcL Neutrophils # 4.4 (1.6-8.9) K/mcL BMP 08/14/17 08:45 Sodium 143 Potassium 4.3 Chloride 93 L Carbon Dioxide 49 H* BUN 13 Creatinine 0.66 Glucose 126 H Calcium 9.3 Cardiac Enzymes 08/14/17 Range/Units 08:45 Troponin I < 0.03 (< 0.04) ng/mL Urine 08/14/17 Range/Units 09:42 Urine Color Yellow (Yellow) Urine Clarity Cloudy A (Clear) Urine pH 6.0 (5.0-8.0) pH Units Ur Specific Taylor 1.020 (1.010-1.025) Urine Protein 30 H (Neg-Trace) mg/dL Urine Glucose (UA) Normal (Normal) mg/dL - ABG Interpretation ABG results: 08/14/17 09:38 ABG pH 7.24 L ABG pCO2 119 H* ABG pO2 202 H ABG HCO3 51 H ABG Total CO2 55 H ABG O2 Saturation 99 H ABG Base Excess 18 H - Impressions ITS Impressions Chest X-Ray 08/14/17 08:30 IMPRESSION: No acute pulmonary process. D/ / Frederick Lee MD / Frederick Lee MD Interpreting Provider: Frederick Lee MD Cervical Spine CT 08/14/17 09:00 IMPRESSION: No acute abnormality of the cervical spine. RECOMMENDATIONS: The Fleischner society pulmonary nodule recommendations are usually for follow-up and management of pulmonary nodules smaller than 8 mm detected incidentally on non-screening CT. Nodule size between 6-8 mm low risk patients - initial follow-up CT at 6-12 months and then at 18-24 months if no change high risk patients - initial follow-up CT at 3-6 months and then at 9-12 and 24 months if no change Note: newly detected indeterminate nodule in persons 35 years of age or older. low risk patients - minimal or absent history of smoking and or other known risk factors high risk patients - history of smoking or of other known risk factors Based on current guidelines*, a follow-up unenhanced low-dose CT can be obtained at clinical discretion. *Tiana H, Rene JM, Shay G, Todd CJ, Salvador JR, Lu DP, et al. Guidelines for Management of Small Pulmonary Nodules Detected on CT Scans: A Statement from the Fleischner Society. Radiology 2005;237:395-400. D/ / Frederick Lee MD / Frederick Lee MD Interpreting Provider: Frederick Lee MD Head CT 08/14/17 09:00 IMPRESSION: No acute intracranial abnormality. D/ / Frederick Lee MD / Frederick Lee MD Interpreting Provider: Frederick Lee MD Chest CTA 08/14/17 09:27 IMPRESSION: No evidence of pulmonary embolus. Emphysema. Secretions and mucous plugging within the bronchi lower lobes and lingula, worse on the right. Multiple tree-in-bud nodules in the lower lobes, likely infectious or inflammatory in etiology. Ground-glass nodules and nodular opacities in the lung apices most prominent left apex. Findings likely postinflammatory in represent scarring. Recommend follow-up in 3 months. D/ / Marietta Henriquez MD / Marietta Henriquez MD Interpreting Provider: Marietta Henriquez MD
[2017-08-14] MEDS ORDERED: Naloxone 0.4 MG/ML INJ IVP PRN (12:28)
[2017-08-14] MEDS ORDERED: Acetaminophen 325 MG TABLET PO PRN (12:28)
[2017-08-14] MEDS ORDERED: Melatonin 3 MG TABLET PO PRN (12:36)
[2017-08-14] MEDS ORDERED: Nitroglycerin 0.4 MG TAB.SUBL SL PRN (12:42)
[2017-08-14] MEDS: Azithromycin 500 MG in D5% in Water 250 ML IVPB SCH (14:02)
[2017-08-14 14:10] LABS: Adenovirus Not Detected (Not Detect); Bordetella Pertussis Not Detected (Not Detect); Chlamydophila pneumoniae Not Detected (Not Detect); Coronavirus 229E Not Detected (Not Detect); Coronavirus HKU1 Not Detected (Not Detect); Coronavirus NL63 Not Detected (Not Detect); Coronavirus OC43 Not Detected (Not Detect); Human Metapneumovirus Not Detected (Not Detect); Human Rhinovirus/Enterovirus Not Detected (Not Detect); Influenza A Subtype 2009 H1 Not Detected (Not Detect); Influenza A Untypeable Not Detected (Not Detect); Influenza B Not Detected (Not Detect); Mycoplasma pneumoniae Not Detected (Not Detect); Parainfluenza Virus 1 Not Detected (Not Detect); Parainfluenza Virus 2 Not Detected (Not Detect); Parainfluenza Virus 3 Not Detected (Not Detect); Parainfluenza Virus 4 Not Detected (Not Detect); Respiratory Syncytial Virus Not Detected (Not Detect)
[2017-08-14] MEDS ORDERED: Ondansetron 4 MG/2 ML VIAL ONE (14:12)
[2017-08-14] MEDS ORDERED: Prochlorperazine 10 MG/2 ML VIAL IVP PRN (14:15)
[2017-08-14] MEDS: Ipratropium/Albuterol Neb 3 ML IH SCH ×3 (14:34→20:40)
[2017-08-14] MEDS ORDERED: Ondansetron 4 MG/2 ML VIAL IVP PRN (14:54)
[2017-08-14] MEDS ORDERED: *HR* LORazepam 2 MG/ML VIAL ONE (14:56)
[2017-08-14 14:57] LABS: ABG Base Excess 18 mEq/L (-2 to 3); ABG HCO3 50 mEq/L (21-27); ABG Oxygen Saturation 96 % (95-98); ABG PCO2 114 mmHg (35-45); ABG PH 7.25 pH Units (7.32-7.45); ABG PO2 104 mmHg (85-104); ABG TCO2 54 mEq/L (20-26)
[2017-08-14] MEDS: methylPREDNISolone 125 MG/2 ML VIAL IVP SCH (16:13)
[2017-08-14] MEDS ORDERED: *HR* Metoprolol 5 MG/5 ML VIAL IVP ONE (17:19)
[2017-08-14 18:13] LABS: ABG Base Excess 19 mEq/L (-2 to 3); ABG HCO3 48 mEq/L (21-27); ABG Oxygen Saturation 91 % (95-98); ABG PCO2 82 mmHg (35-45); ABG PH 7.38 pH Units (7.32-7.45); ABG PO2 68 mmHg (85-104); ABG TCO2 50 mEq/L (20-26); Blood Gas PEEP 6 cm H2O; Blood Gas VT 450 cc
[2017-08-14] MEDS: *HR* LORazepam 1 MG TABLET PO PRN (22:37)
[2017-08-15] MEDS: Ipratropium/Albuterol Neb 3 ML IH SCH ×4 (00:01→11:33)
[2017-08-15] MEDS: methylPREDNISolone 125 MG/2 ML VIAL IVP SCH ×4 (00:15→23:25)
[2017-08-15 04:19] LABS: Basophils % 0.1 %; Eosinophils % 0.1 %; Hematocrit 36.3 % (35.3-44.9); Hemoglobin 10.9 g/dL (11.5-15.4); Immature Granulocytes % 0.5 % (0-4); Lymphocytes # 0.6 K/mcL (0.6-4.6); Lymphocytes % 7.1 %; Mean Corpuscular Hemoglobin 30.7 pg (28.0-33.3); Mean Corpuscular Volume 102.3 fL (83.0-100.0); Mean Platelet Volume 10.7 fL (9.4-12.4); Monocytes # 0.2 K/mcL (0.0-1.3); Neutrophils # 7.1 K/mcL (1.6-8.9); Platelet Count 158 K/mcL (140-400); Red Blood Count 3.55 M/mcL (3.82-4.97); Red Cell Distribution Width 13.2 % (11.5-14.5); Segmented Neutrophils % 89.2 %
[2017-08-15 04:46] LABS: BUN/Creatinine Ratio 22 (6-26); Blood Urea Nitrogen 14 mg/dL (8-23); Calcium 9.4 mg/dL (8.6-10.3); Carbon Dioxide 46 mEq/L (23-29); Chloride 90 mEq/L (98-107); Glucose 110 mg/dL (70-105); Osmolality,Calculated 293 (280-300); Potassium 5.1 mEq/L (3.5-5.1); Sodium 141 mEq/L (136-145); eGFR For African Americans > 60 (> 60); eGFR For Non-African Americans > 60 (> 60)
[2017-08-15 05:09] LABS: ABG Base Excess 21 mEq/L (-2 to 3); ABG HCO3 49 mEq/L (21-27); ABG Oxygen Saturation 91 % (95-98); ABG PCO2 74 mmHg (35-45); ABG PH 7.43 pH Units (7.32-7.45); ABG PO2 63 mmHg (85-104); ABG TCO2 52 mEq/L (20-26); Blood Gas PEEP 6 cm H2O; Blood Gas Pressure Support 18 cm H2O; Blood Gas Respiration Rate 8; Blood Gas VT 450 cc
[2017-08-15] MEDS: BuPROPion SR (12 HR) 150 MG TABLET PO SCH (08:01)
[2017-08-15] MEDS: Diltiazem CD (24hr) 240 MG CAPSULE PO SCH (08:01)
[2017-08-15] MEDS: Furosemide 40 MG TABLET PO SCH (08:01)
[2017-08-15] MEDS: Magnesium Oxide 400 MG TABLET PO SCH (08:01)
[2017-08-15] MEDS ORDERED: (Roflumilast [Daliresp] 500 MCG) PO SCH (09:00)
--- NOTE | 2017-08-15 09:12 | Internal Med Progress Note ---
<Kalpesh Fairbanks - Last Filed: 08/15/17 11:22> Date of Encounter: 08/15/17 Time of Encounter: 09:08 - Assessment and plan (1) Acute exacerbation of chronic obstructive airways disease Current Visit: Yes Status: Acute Assessment and plan: Patient is currently at baseline clinically. -We will start oral prednisone -Continue oxygen via nasal cannula at home dose of 3 L -Azithromycin day 2 -40 mg prednisone daily -BIPAP qualification study (2) Acute on chronic respiratory failure with hypoxia and hypercapnia Current Visit: Yes Status: Acute Assessment and plan: Initial ABG revealed a pH of 7.24 with a PCO2 of 119. PH of last ABG is 7.43 with a PCO2 of 74. Current bicarbonate is 46. Patient has improved significantly after administration of BiPAP, steroids, DuoNeb. (3) Atrial fibrillation Current Visit: Yes Status: Acute Assessment and plan: Currently tachycardic with a heart rate in the 90s to low 100s. Do not know patient's baseline. Continue to monitor as once patient's clinical condition continues to improve, so should her heart rate. Qualifiers: Atrial fibrillation type: chronic Qualified Code(s): I48.2 - Chronic atrial fibrillation (4) Headache Current Visit: Yes Status: Acute Assessment and plan: Patient did not wake up with headache this morning. I suspect that Administration has assisted with her headache. She may have a component of SHAMA. 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 Cannot obtain MRI as patient has medal clips. I suspect that the moderate stenosis is not causing this patient's headaches at this time. We will have patient follow-up with neurology in the outpatient setting. Qualifiers: Headache type: unspecified Headache chronicity pattern: acute headache Intractability: intractable Qualified Code(s): R51 - Headache (5) DVT prophylaxis Current Visit: Yes Status: Acute Assessment and plan: SCDs (6) H/O cerebral aneurysm repair Current Visit: Yes Status: Acute - Subjective Interval history: Patient came to the emergency department yesterday with worsening hypoxia and headaches that wake her up from sleep. [id number] states patient's mental status is currently at baseline as she was having some confusion yesterday. [id number] states that the patient's oxygen saturation is normally in the upper 80s on 3 L via nasal cannula. - Constitutional Vitals: Temp Pulse Resp BP Pulse Ox 98.3 F 95 27 128/83 94 08/15/17 06:59 08/15/17 06:59 08/15/17 08:12 08/15/17 08:12 08/15/17 08:12 General appearance: Present: A&O X 3, pleasant, no acute distress, answers questions appropriately - Head Head exam: Present: atraumatic - Respiratory Respiratory exam: Present: rhonchi (Diffuse) - Cardiovascular Cardiovascular exam: Present: irregular rhythm, tachycardia. Absent: JVD Internal Medicine: Result - Labs CBC & Chem 7: 08/15/17 02:57 08/15/17 02:57 Labs: Short CBC 08/15/17 Range/Units 02:57 WBC 7.9 (4.3-11.1) K/mcL Hgb 10.9 L (11.5-15.4) g/dL Hct 36.3 (35.3-44.9) % Plt Count 158 (140-400) K/mcL Neutrophils # 7.1 (1.6-8.9) K/mcL BMP 08/15/17 02:57 Sodium 141 Potassium 5.1 Chloride 90 L Carbon Dioxide 46 H* BUN 14 Creatinine 0.65 Glucose 110 H Calcium 9.4 - ABG Interpretation Interpretation: ABG interpreted by nv ABG results: ABG ABG pH 7.43 pH Units (7.32-7.45) 08/15/17 05:02 ABG pCO2 74 mmHg (35-45) H* 08/15/17 05:02 ABG pO2 63 mmHg (85-104) L 08/15/17 05:02 ABG O2 Saturation 91 % (95-98) L 08/15/17 05:02 PT/INR, D-dimer D-Dimer 2099 ng/mLFEU (0-500) H 08/14/17 08:45 Interpretation: respiratory acidosis (With compensation) - Impressions Impressions Head CTA 08/14/17 12:41 IMPRESSION: 1. Postsurgical changes are noted from aneurysm clippings of bilateral P-comms and the anterior communicating artery. There is streak artifact from the aneurysm clips, somewhat distorting adjacent anatomic detail. 2. No new aneurysms are identified. 3. 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 This may be exaggerated by streak artifact from the aneurysm clips. 4. No areas of abnormal contrast enhancement are noted in the cerebral or cerebellar parenchyma. 5. Thickened secretions in the left sphenoid sinus, correlate with signs of acute sinusitis. D/ / 08/14/2017 14:12:25 Marco Arriaza MD / Deidre Howell Interpreting Provider: Marco Arriaza MD Consult Discharge Plan - Plan Referrals: Jahaira Henao CNP [Advanced Practice Nurse] - 08/25/17 10:00 am <Hector Lora H - Last Filed: 08/15/17 17:23> Date of Encounter: 08/15/17 - Constitutional Vitals: Temp Pulse Resp BP Pulse Ox 98.8 F 122 18 126/91 92 08/15/17 15:43 08/15/17 15:43 08/15/17 16:50 08/15/17 15:43 08/15/17 16:50 Internal Medicine: Result - Labs CBC & Chem 7: 08/15/17 02:57 08/15/17 02:57 Labs: Short CBC 08/15/17 Range/Units 02:57 WBC 7.9 (4.3-11.1) K/mcL Hgb 10.9 L (11.5-15.4) g/dL Hct 36.3 (35.3-44.9) % Plt Count 158 (140-400) K/mcL Neutrophils # 7.1 (1.6-8.9) K/mcL BMP 08/15/17 02:57 Sodium 141 Potassium 5.1 Chloride 90 L Carbon Dioxide 46 H* BUN 14 Creatinine 0.65 Glucose 110 H Calcium 9.4 - ABG Interpretation ABG results: ABG ABG pH 7.43 pH Units (7.32-7.45) 08/15/17 05:02 ABG pCO2 74 mmHg (35-45) H* 08/15/17 05:02 ABG pO2 63 mmHg (85-104) L 08/15/17 05:02 ABG O2 Saturation 91 % (95-98) L 08/15/17 05:02 PT/INR, D-dimer D-Dimer 2099 ng/mLFEU (0-500) H 08/14/17 08:45 - Impressions Impressions Echocardiogram 08/14/17 12:35 Impressions: LVEF 55-60%. Mild concentric left ventricular hypertrophy. Indeterminate diastolic function. Normal right ventricular structure and function. Bi-atrial enlargement. Moderate aortic stenosis by area. Moderate mitral regurgitation. Mild-moderate tricuspid regurgitation. Mild pulmonary hypertension. Left Ventricular Wall Motion: Rest Echo Findings The basal inferior and basal inferior septal bejarano were hypokinetic. All other wall segments showed normal motion. Findings: Study Quality * Technically adequate exam. ECG Findings * Atrial fibrillation. Left Ventricle * LVEF 55-60%. * Mild concentric left ventricular hypertrophy. * Indeterminate diastolic function. Right Ventricle * Normal right ventricular structure and function. Left Atrium * Moderately dilated left atrium. Right Atrium * Moderately dilated right atrium. Aortic Valve * No aortic regurgitation. * Moderately calcified aortic valve leaflets. * Moderate aortic stenosis by area, IVAN 1.3cm2. PV 2.4m/s, MG 13 mmHg, DI 0.41. Reduced gradient may be secondary to decreased SVI, 25 mL/m2 Mitral Valve * Mild-moderate mitral annular calcification * Mildly thickened and calcified mitral valve leaflets. * No mitral stenosis. * Moderate mitral regurgitation. Tricuspid Valve * Tricuspid valve not well visualized. * Mild-moderate tricuspid regurgitation. * Estimated RA pressure is 8 mmHg. * Estimated RVSP is 40 mmHg. * Mild pulmonary hypertension. Pulmonic Valve * Pulmonic valve is not well visualized. * No pulmonic stenosis. * No pulmonic regurgitation. Pulmonary Artery * Pulmonary artery not well visualized. Aorta * Not optimally visualized. Pericardium * There is no pericardial effusion present. Interatrial Septum * No evidence of PFO by color Doppler. IVC * The IVC is not dilated. * < 50% respiratory change. - Attending Attestation Acute on chronic hypoxic hypercapnic respiratory failure secondary to acute COPD exacerbation from acute bacterial bronchitis Continue IV Solu-Medrol and azithromycin I examined this patient and my medical decision-making was reviewed with the Resident Physician. I agree with the documented findings, disposition and treatment plan as described except to the extent set forth below.
[2017-08-15] MEDS ORDERED: predniSONE 20 MG TABLET PO SCH (11:30)
[2017-08-15] MEDS ORDERED: Ipratropium Neb 0.5 MG NEBULIZER IH PRN (13:28)
[2017-08-15] MEDS ORDERED: Levalbuterol Neb 0.63 MG/3 ML IH PRN (13:28)
[2017-08-15] MEDS: Azithromycin 500 MG in D5% in Water 250 ML IVPB SCH (14:25)
[2017-08-15] MEDS: Levalbuterol Neb 1.25 MG/3 ML IH SCH ×2 (16:24→21:53)
[2017-08-15] MEDS: Ipratropium Neb 0.5 MG NEBULIZER IH SCH ×2 (16:24→21:53)
[2017-08-15] MEDS ORDERED: *HR* Metoprolol 5 MG/5 ML VIAL IVP ONE ×6 (18:12→18:57)
--- NOTE | 2017-08-15 19:09 | Event Note ---
Date of Encounter: 08/15/17 Time of Encounter: 18:00 Patient developed A. Fib with RVR with sustained HR 140-160. Patient reported having a slight fluttering, but was otherwise asymptomatic BP remained stable HR was tachycardic and irregular She was initially given metoprolol 5 mg Q5min x3 Her overall HR came down to 120-130 but she remained in a. fib with rvr continued to be asymptomatic BP remained stable after 3 doses Cardizem drip was ordered to titrate to a lower HR
[2017-08-15] MEDS ORDERED: 0.9 % Sodium Chloride 1,000 ML ONE (19:51)
[2017-08-15] MEDS: Acetaminophen/Butalbital/CaffeineTABLET PO PRN (20:01)
[2017-08-15] MEDS: *HR* Heparin 5,000 UNIT/ML VIAL SQ SCH (21:26)
[2017-08-15] MEDS: *HR* LORazepam 1 MG TABLET PO PRN (21:29)
[2017-08-16] MEDS: Levalbuterol Neb 1.25 MG/3 ML IH SCH ×4 (03:53→21:38)
[2017-08-16] MEDS: Ipratropium Neb 0.5 MG NEBULIZER IH SCH ×4 (03:53→21:38)
[2017-08-16] MEDS: *HR* Heparin 5,000 UNIT/ML VIAL SQ SCH ×3 (05:36→21:36)
[2017-08-16] MEDS: Furosemide 40 MG TABLET PO SCH (07:40)
[2017-08-16] MEDS: Diltiazem CD (24hr) 240 MG CAPSULE PO SCH (07:40)
[2017-08-16] MEDS: BuPROPion SR (12 HR) 150 MG TABLET PO SCH (07:40)
[2017-08-16] MEDS: methylPREDNISolone 125 MG/2 ML VIAL IVP SCH ×3 (07:40→20:04)
[2017-08-16] MEDS: Magnesium Oxide 400 MG TABLET PO SCH (07:40)
[2017-08-16 08:21] LABS: ABG Base Excess 15 mEq/L (-2 to 3); ABG HCO3 42 mEq/L (21-27); ABG Oxygen Saturation 90 % (95-98); ABG PCO2 61 mmHg (35-45); ABG PH 7.45 pH Units (7.32-7.45); ABG PO2 59 mmHg (85-104); ABG TCO2 44 mEq/L (20-26)
[2017-08-16] MEDS: Azithromycin 500 MG in D5% in Water 250 ML IVPB SCH (14:07)
--- NOTE | 2017-08-16 15:53 | Internal Med Progress Note ---
<Kalpesh Fairbanks - Last Filed: 08/16/17 18:55> Date of Encounter: 08/16/17 Time of Encounter: 15:51 - Assessment and plan (1) Acute exacerbation of chronic obstructive airways disease Current Visit: Yes Status: Acute Assessment and plan: Patient currently on Solu-Medrol 60 mg every 12 hours. Receiving around-the- clock DuoNeb therapies. Patient is currently on azithromycin as well. On her home level of oxygen at 3 L via nasal cannula. Patient qualified for BiPAP last night. Patient was having tachycardia. Ordered a repeat chest x-ray did not reveal evidence of a new pneumonia or any new cardiac abnormality. Chest X-Ray 08/16/17 14:42 IMPRESSION: Persistently enlarged cardiomediastinal silhouette. Mild prominence of interstitial lung markings may represent interstitial pulmonary edema versus chronic interstitial lung disease such as emphysema. No focal consolidation, pneumothorax, or significant pleural effusion. D/ / 08/16/2017 15:16:30 Oliver Aguirre MD / earnold Interpreting Provider: Oliver Aguirre MD (2) Acute on chronic respiratory failure with hypoxia and hypercapnia Current Visit: Yes Status: Acute Assessment and plan: Status is currently improving. Patient will continue on 3 L of oxygen in the daytime and use BiPAP at night. CO2 has lowered, bicarbonate is slowly lowering as well. (3) Atrial fibrillation Current Visit: Yes Status: Acute Assessment and plan: Atrial fibrillation with RVR in the 120s. We will increase Cardizem to 300 mg daily. I will give her rapid release 30 mg every 6 hours tonight to see how her heart rate response. Patient denies any symptoms of palpitations, chest pain, pressure, tightness. Qualifiers: Atrial fibrillation type: chronic Qualified Code(s): I48.2 - Chronic atrial fibrillation (4) Headache Current Visit: Yes Status: Acute Assessment and plan: Headaches have improved with BiPAP administration at nighttime. Qualifiers: Headache type: unspecified Headache chronicity pattern: acute headache Intractability: intractable Qualified Code(s): R51 - Headache (5) DVT prophylaxis Current Visit: Yes Status: Acute Assessment and plan: Heparin 5000 units subcutaneous every 8 hours. (6) H/O cerebral aneurysm repair Current Visit: Yes Status: Acute - Subjective Interval history: 72-year-old female who is currently on her home oxygen at 3 L via nasal cannula mollify for BiPAP last night with her overnight study. Patient states she is doing well. Not having any chest pain, pressure, tightness. Patient did have an event yesterday where in the evening time her heart rate went into the 120s to 150s. Patient does have have atrial fibrillation with RVR. Patient was started on a Cardizem drip. Patient was removed on that later on in the evening as her heart rate lowered.. Patient is on metoprolol as well as Cardizem at home. Was receiving her home medications. Nurse states that heart rate has increased to the 110s to 120s. Patient states her normal heart rate home is in the high 70s - Constitutional Vitals: Temp Pulse Resp BP Pulse Ox 98.4 F 103 18 128/80 93 08/16/17 11:31 08/16/17 11:31 08/16/17 11:31 08/16/17 11:31 08/16/17 11:31 General appearance: Present: A&O X 3, pleasant, no acute distress, answers questions appropriately - Head Head exam: Present: atraumatic - Neck Neck exam general surgery: Present: normal inspection - Respiratory Respiratory exam: Present: rhonchi (Improved from yesterday). Absent: wheezes - Neurological Exam Neurological exam: Present: CN II-XII intact, oriented X3 - Psychiatric Psychiatric exam: Present: normal affect, normal mood Internal Medicine: Result - Labs CBC & Chem 7: 08/15/17 02:57 08/15/17 02:57 - ABG Interpretation ABG results: ABG ABG pH 7.45 pH Units (7.32-7.45) 08/16/17 08:18 ABG pCO2 61 mmHg (35-45) H 08/16/17 08:18 ABG pO2 59 mmHg (85-104) L 08/16/17 08:18 ABG O2 Saturation 90 % (95-98) L 08/16/17 08:18 PT/INR, D-dimer D-Dimer 2099 ng/mLFEU (0-500) H 08/14/17 08:45 - Impressions Impressions Chest X-Ray 08/16/17 14:42 IMPRESSION: Persistently enlarged cardiomediastinal silhouette. Mild prominence of interstitial lung markings may represent interstitial pulmonary edema versus chronic interstitial lung disease such as emphysema. No focal consolidation, pneumothorax, or significant pleural effusion. D/ / 08/16/2017 15:16:30 Oliver Aguirre MD / earstacie Interpreting Provider: Oliver Aguirre MD Consult Discharge Plan - Plan Referrals: Jahaira Henao, [employer] [Advanced Practice Nurse] - 08/25/17 10:00 am <Johnny Silva - Last Filed: 08/16/17 19:24> Date of Encounter: 08/16/17 - Assessment and plan (1) Acute on chronic respiratory failure with hypoxia and hypercapnia Current Visit: Yes Status: Acute (2) Acute exacerbation of chronic obstructive airways disease Current Visit: Yes Status: Acute (3) Atrial fibrillation Current Visit: Yes Status: Acute Qualifiers: Atrial fibrillation type: chronic Qualified Code(s): I48.2 - Chronic atrial fibrillation (4) Hypertension Current Visit: Yes Status: Chronic Qualifiers: Hypertension type: essential hypertension Qualified Code(s): I10 - Essential (primary) hypertension - Constitutional Vitals: Temp Pulse Resp BP Pulse Ox 98.7 F 131 16 138/78 88 08/16/17 16:07 08/16/17 18:15 08/16/17 16:19 08/16/17 18:15 08/16/17 16:19 Internal Medicine: Result - Labs CBC & Chem 7: 08/15/17 02:57 08/15/17 02:57 - ABG Interpretation ABG results: ABG ABG pH 7.45 pH Units (7.32-7.45) 08/16/17 08:18 ABG pCO2 61 mmHg (35-45) H 08/16/17 08:18 ABG pO2 59 mmHg (85-104) L 08/16/17 08:18 ABG O2 Saturation 90 % (95-98) L 08/16/17 08:18 PT/INR, D-dimer D-Dimer 2099 ng/mLFEU (0-500) H 08/14/17 08:45 - Impressions Impressions Chest X-Ray 08/16/17 14:42 IMPRESSION: 1. Persistently enlarged cardiomediastinal silhouette. Mild prominence of interstitial lung markings may represent interstitial pulmonary edema versus chronic interstitial lung disease such as emphysema. 2. No focal consolidation, pneumothorax, or significant pleural effusion. D/ / 08/16/2017 15:16:30 Oliver Aguirre MD / earstacie Interpreting Provider: Oliver Aguirre MD - Attending Attestation I examined this patient and my medical decision-making was reviewed with the Resident Physician on 08/16/17. I agree with the documented findings, disposition and treatment plan as described except to the extent set forth below. Ms Gaines is currently admitted for acute exac COPD. She has qualified for bipap at this time. She remains moderate to high risk due to potential for worsening clinical status. Ms Gaines feels her breathing has improved some but she is having issues with rapid a fib. No CP. No fever or chills. No GI issues. Headaches improved with bipap. Exam Alert Comfortable in chair. Mucus membranes dry Heart irreg and tachy Lungs diminished Abd soft i/P 1. COPD exac 2. A fib Further diagnoses and plan as above.
[2017-08-16 19:26] LABS: Magnesium 2.1 mg/dL (1.6-2.6); Potassium 3.8 mEq/L (3.5-5.1)
[2017-08-16] MEDS: *HR* LORazepam 1 MG TABLET PO PRN (20:13)
[2017-08-16] MEDS: Acetaminophen/Butalbital/CaffeineTABLET PO PRN (20:42)
--- NOTE | 2017-08-17 00:07 | Electrocardiograph Report ---
[place] [id number] Test Date: 2017-08-14 Pat Name: Kim Gaines Department: [id number] Room: 2N02 Gender: F Power[employer] Tender: : 1945 Requested By: Francis Evans Order Number: [id number] Reading MD: Odin Beltre DO Measurements Intervals [place] Rate: 94 P: [place]: 0 QRS: 126 QRSD: 93 T: 20 QT: 349 QTc: 401 Interpretive Statements ATRIAL FIBRILLATION INCOMPLETE RIGHT BUNDLE BRANCH BLOCK Electronically Signed On 08-17-2017 0:05:56 EDT by Odin Beltre DO
[2017-08-17] MEDS: Ipratropium Neb 0.5 MG NEBULIZER IH SCH ×4 (03:43→22:37)
[2017-08-17] MEDS: Levalbuterol Neb 1.25 MG/3 ML IH SCH ×4 (03:43→22:37)
[2017-08-17] MEDS: *HR* Heparin 5,000 UNIT/ML VIAL SQ SCH ×3 (06:01→20:35)
[2017-08-17 08:39] LABS: Mycoplasma pneumoniae IgG 3.02 U/L (<=0.09)
[2017-08-17] MEDS ORDERED: Diltiazem CD (24hr) 300 MG CAPSULE PO SCH (09:00)
[2017-08-17] MEDS: Diltiazem CD (24hr) 180 MG CAPSULE PO SCH (09:06)
[2017-08-17] MEDS: methylPREDNISolone 125 MG/2 ML VIAL IVP SCH ×2 (09:06→20:34)
[2017-08-17] MEDS: BuPROPion SR (12 HR) 150 MG TABLET PO SCH (09:06)
[2017-08-17] MEDS: Magnesium Oxide 400 MG TABLET PO SCH (09:06)
[2017-08-17] MEDS: Furosemide 40 MG TABLET PO SCH (09:07)
[2017-08-17 09:24] LABS: BUN/Creatinine Ratio 28 (6-26); Blood Urea Nitrogen 22 mg/dL (8-23); Carbon Dioxide 37 mEq/L (23-29); Chloride 98 mEq/L (98-107); Glucose 167 mg/dL (70-105); Magnesium 2.1 mg/dL (1.6-2.6); Osmolality,Calculated 299 (280-300); Potassium 3.7 mEq/L (3.5-5.1); Sodium 141 mEq/L (136-145); eGFR For African Americans > 60 (> 60); eGFR For Non-African Americans > 60 (> 60)
--- NOTE | 2017-08-17 09:29 | Internal Med Progress Note ---
<Kalpesh Fairbanks - Last Filed: 08/17/17 15:10> Date of Encounter: 08/17/17 Time of Encounter: 09:27 - Assessment and plan (1) Acute exacerbation of chronic obstructive airways disease Current Visit: Yes Status: Acute Assessment and plan: Patient currently on 3 L of oxygen via nasal cannula maintaining oxygen saturation of 94%. This is her home dose. Patient qualified for BiPAP 2 days ago. Patient stated that it helped out with her symptoms that she was having in the middle the night with headache. Patient would not do as well with CPAP as BiPAP is a more superior therapy for COPD patients. Patient currently on round the clock DuoNeb's. Continue monitoring today. Patient will be sent home on BiPAP for night as she qualifies for it. -Azithromycin day 5 -Continue BiPAP at night -Patient needs BiPAP for outpatient therapy and is not not a good candidate CPAP as BiPAP is a more superior therapy for COPD patients -Every 12 methylprednisolone at 60 mg, prednisone orally tomorrow (2) Acute on chronic respiratory failure with hypoxia and hypercapnia Current Visit: Yes Status: Acute Assessment and plan: See above (3) Atrial fibrillation Current Visit: Yes Status: Acute Assessment and plan: Patient was again placed on Cardizem drip for a few hours yesterday evening for atrial fibrillation with RVR and wished the patient was having palpitations.. Cardizem drip was removed. Patient will be given 360 mg Cardizem 24-hour tablet today. Patient fibrillation currently in the 110s. Continue to monitor heart rate. Chest x-ray was normal yesterday. Discussed anticoagulation with the patient. Patient had GI bleed in 2013 which require transfer to [place]. Patient was on Coumadin at that time. Patient takes a baby aspirin at home intermittently. We discussed the risks and benefits of anticoagulation therapy with her age of fibrillation with RVR. Discussed effects that could occur from if patient had ischemic stroke. Also, discussed risks and benefits of falls as patient had a recent fall hitting her head. Shared decision making was made and was determined to place patient on 81 mg aspirin therapy for stroke prophylaxis secondary to her atrial fibrillation with RVR. TSH was also within normal limits. -81 mg aspirin -Continue monitoring rate -Cardizem 360 mg [id number] release daily Qualifiers: Atrial fibrillation type: chronic Qualified Code(s): I48.2 - Chronic atrial fibrillation (4) Headache Current Visit: Yes Status: Acute Assessment and plan: Patient's headaches have improved after administration of BiPAP. I believe that this is the etiology. 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 Qualifiers: Headache type: unspecified Headache chronicity pattern: acute headache Intractability: intractable Qualified Code(s): R51 - Headache (5) DVT prophylaxis Current Visit: Yes Status: Acute Assessment and plan: Currently on 5000 units of heparin subcutaneous every 8 hours. (6) H/O cerebral aneurysm repair Current Visit: Yes Status: Acute - Subjective Interval history: 72-year-old female who is currently on her home oxygen at 3 L via nasal cannula mollify for BiPAP last night with her overnight study. Patient states she is doing well. Not having any chest pain, pressure, tightness. Patient did have an event yesterday where in the evening time her heart rate went into the 120s to 150s. Patient does have have atrial fibrillation with RVR. Patient was started on a Cardizem drip. Patient was removed on that later on in the evening as her heart rate lowered. The same thing happened the day before. Patient is on metoprolol as well as Cardizem at home. Was receiving her home medications. Nurse states that heart rate has increased to the 110s. Patient states her normal heart rate home is in the high 70s - Constitutional Vitals: Temp Pulse Resp BP Pulse Ox 98.4 F 87 17 142/82 95 08/17/17 06:41 08/17/17 06:41 08/17/17 06:41 08/17/17 06:41 08/17/17 06:41 General appearance: Present: A&O X 3, pleasant, no acute distress, answers questions appropriately - Head Head exam: Present: atraumatic, normal inspection - Neck Neck exam general surgery: Present: full ROM, normal inspection - Respiratory Respiratory exam: Present: rhonchi (Mild) - Cardiovascular Cardiovascular exam: Present: irregular rhythm (Telemetry: Atrial fibrillation with RVR in the 110s.) - Extremities Exam Extremities exam: Present: normal inspection - Neurological Exam Neurological exam: Present: CN II-XII intact, oriented X3 Internal Medicine: Result - Labs CBC & Chem 7: 08/15/17 02:57 08/17/17 08:37 Labs: BMP 08/16/17 08/17/17 18:21 08:37 Sodium 141 Potassium 3.8 3.7 Chloride 98 Carbon Dioxide 37 H BUN 22 Creatinine 0.79 Glucose 167 H Calcium 9.0 - ABG Interpretation ABG results: ABG ABG pH 7.45 pH Units (7.32-7.45) 08/16/17 08:18 ABG pCO2 61 mmHg (35-45) H 08/16/17 08:18 ABG pO2 59 mmHg (85-104) L 08/16/17 08:18 ABG O2 Saturation 90 % (95-98) L 08/16/17 08:18 PT/INR, D-dimer D-Dimer 2099 ng/mLFEU (0-500) H 08/14/17 08:45 - Impressions Impressions Chest X-Ray 08/16/17 14:42 IMPRESSION: 1. Persistently enlarged cardiomediastinal silhouette. Mild prominence of interstitial lung markings may represent interstitial pulmonary edema versus chronic interstitial lung disease such as emphysema. 2. No focal consolidation, pneumothorax, or significant pleural effusion. D/ / 08/16/2017 15:16:30 Oliver Aguirre MD / earnold Interpreting Provider: Oliver Aguirre MD Consult Discharge Plan - Plan Referrals: Jahaira Henao, BRE [Advanced Practice Nurse] - 08/25/17 10:00 am <Johnny Silva - Last Filed: 08/17/17 18:48> Date of Encounter: 08/17/17 - Assessment and plan (1) Acute on chronic respiratory failure with hypoxia and hypercapnia Current Visit: Yes Status: Acute (2) Acute exacerbation of chronic obstructive airways disease Current Visit: Yes Status: Acute (3) Atrial fibrillation Current Visit: Yes Status: Acute Qualifiers: Atrial fibrillation type: chronic Qualified Code(s): I48.2 - Chronic atrial fibrillation (4) Hypertension Current Visit: Yes Status: Chronic Qualifiers: Hypertension type: essential hypertension Qualified Code(s): I10 - Essential (primary) hypertension - Constitutional Vitals: Temp Pulse Resp BP Pulse Ox 98.6 F 88 18 148/83 92 08/17/17 15:56 08/17/17 15:07 08/17/17 15:18 08/17/17 15:07 08/17/17 15:18 Internal Medicine: Result - Labs CBC & Chem 7: 08/15/17 02:57 08/17/17 08:37 Labs: BMP 08/16/17 08/17/17 18:21 08:37 Sodium 141 Potassium 3.8 3.7 Chloride 98 Carbon Dioxide 37 H BUN 22 Creatinine 0.79 Glucose 167 H Calcium 9.0 - ABG Interpretation ABG results: ABG ABG pH 7.45 pH Units (7.32-7.45) 08/16/17 08:18 ABG pCO2 61 mmHg (35-45) H 08/16/17 08:18 ABG pO2 59 mmHg (85-104) L 08/16/17 08:18 ABG O2 Saturation 90 % (95-98) L 08/16/17 08:18 PT/INR, D-dimer D-Dimer 2099 ng/mLFEU (0-500) H 08/14/17 08:45 - Impressions Impressions Chest X-Ray 08/16/17 14:42 IMPRESSION: 1. Persistently enlarged cardiomediastinal silhouette. Mild prominence of interstitial lung markings may represent interstitial pulmonary edema versus chronic interstitial lung disease such as emphysema. 2. No focal consolidation, pneumothorax, or significant pleural effusion. D/ / 08/16/2017 15:16:30 Oliver Aguirre MD / earnold Interpreting Provider: Oliver Aguirre MD - Attending Attestation I examined this patient and my medical decision-making was reviewed with the Resident Physician on 08/17/17. I agree with the documented findings, disposition and treatment plan as described except to the extent set forth below. Ms Gaines is currently admitted for acute exac COPD and resp failure. She remains moderate to high risk due to potential for worsening respiratory and clinical status. Ms Gaines is feeling OK. She had rapid a fib again last evening. No fever. Heart rate up and down now. No CP. Exam alert Comfortable Mucus membranes dry Heart irreg and tachy Lungs with scant wheeze abd soft I/P 1. COPD 2. A fib She has qualified for bipap here. She is not a candidate for CPAP due to hypercarbia. Further diagnoses and plan as above
[2017-08-17 10:16] LABS: Thyroid Stimulating Hormone 1.417 mcIU/mL (0.340-5.600)
[2017-08-17] MEDS: Aspirin 81 MG TAB.CHEW PO SCH (11:11)
[2017-08-17] MEDS: Azithromycin 500 MG in D5% in Water 250 ML IVPB SCH (13:21)
[2017-08-18] MEDS: Levalbuterol Neb 1.25 MG/3 ML IH SCH ×2 (04:09→09:36)
[2017-08-18] MEDS: Ipratropium Neb 0.5 MG NEBULIZER IH SCH ×2 (04:09→09:36)
[2017-08-18] MEDS: *HR* Heparin 5,000 UNIT/ML VIAL SQ SCH (05:43)
[2017-08-18] MEDS: methylPREDNISolone 125 MG/2 ML VIAL IVP SCH (08:17)
[2017-08-18] MEDS: Aspirin 81 MG TAB.CHEW PO SCH (08:18)
[2017-08-18] MEDS: Furosemide 40 MG TABLET PO SCH (08:18)
[2017-08-18] MEDS: Magnesium Oxide 400 MG TABLET PO SCH (08:18)
[2017-08-18] MEDS: Diltiazem CD (24hr) 180 MG CAPSULE PO SCH (08:18)
[2017-08-18] MEDS: BuPROPion SR (12 HR) 150 MG TABLET PO SCH (08:18)
--- NOTE | 2017-08-18 09:02 | Discharge Summary ---
<Kalpesh Fairbanks - Last Filed: 08/18/17 09:42> - NOTES TO OUTPATIENT PROVIDER Notes to Outpatient Provider: Patient's long-acting Cardizem was increased at 360 mg PO daily. Patient is now on BiPAP at nighttime. Patient has lung nodules that needs follow-up CT in 3-6 months. 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 Orders not resulted at time of discharge: Pending orders 08/14/17 12:36 Culture,Sputum with Gram Stain [RM] Routine Date of Encounter: 08/18/17 Time of Encounter: 09:00 - Discharge Diagnosis (1) Acute exacerbation of chronic obstructive airways disease Priority: Primary Status: Acute (2) Mitral regurgitation and aortic stenosis Priority: Primary Status: Acute (3) Acute on chronic respiratory failure with hypoxia and hypercapnia Priority: Primary Status: Acute (4) Mycoplasma pneumonia Priority: Primary Status: Acute Qualifiers: Laterality: bilateral Lung location: lower lobe of lung Qualified Code(s) : J15.7 - Pneumonia due to Mycoplasma pneumoniae (5) Atrial fibrillation Priority: Primary Status: Acute Qualifiers: Atrial fibrillation type: chronic Qualified Code(s): I48.2 - Chronic atrial fibrillation (6) Headache Priority: Secondary Status: Acute Qualifiers: Headache type: unspecified Headache chronicity pattern: acute headache Intractability: intractable Qualified Code(s): R51 - Headache (7) DVT prophylaxis Priority: Secondary Status: Acute (8) H/O cerebral aneurysm repair Priority: Secondary Status: Acute Hospital course: Ms. Gaines is a 72 year old female with past medical history of COPD, hypertension, aneurysm repair, presented to the emergency department with acute on chronic respiratory failure with hypoxia and hypercapnia. Patient was placed on BiPAP and began to do better. Patient tested positive for Mycoplasma pneumonia. Patient currently on azithromycin at discharge as well as steroids. Patient receiving [id number] DuoNeb while in the hospital. CT revealed nodule between 6 and 8 mm. Patient received antimicrobial therapy. Patient qualify for BiPAP while in the hospital as well. Patient's hypoxia and hypercapnia improved tremendously, but has a worsening of her atrial fibrillation with RVR. In the evening times at around 1800, patient's atrial fibrillation with RVR would increase to a rate in the 130s to 150s. Patient had to be started on Cardizem drip at times. We increased the patient's dose of Cardizem was increased to 360 mg by mouth every 24 hours. Shared decision making was also made with the patient as she is at high risk for stroke with her atrial fibrillation and due to a GI bleed in 2013 as well as recent falls, it was decided to only keep the patient on antiplatelet therapy with aspirin 81 mg daily. Echocardiogram was obtained and revealed a moderate mitral regurgitation and aortic stenosis with a valve surface area of 1.3 cubic centimeters. On this patient to follow up with Dr. Aguirre, her pastrycook via outpatient. CTA of the chest revealed mucous plugging, and a nodule between 6 and 8 mm. There is a high risk patient and according to flush her Society guidelines, she is a follow-up CT at 3-6 months and then one at 9-12 months and again at 24 months if no change. Patient also received CTA of the head. 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 Patient was reporting headaches, but this improved with BiPAP. I suspect that this is new stenosis is not contributing to her headaches as they have improved after BiPAP administration. However, still on this patient to follow up with neurology on an outpatient basis. Cervical Spine CT 08/14/17 09:00 IMPRESSION: No acute abnormality of the cervical spine. RECOMMENDATIONS: The Fleischner society pulmonary nodule recommendations are usually for follow-up and management of pulmonary nodules smaller than 8 mm detected incidentally on non-screening CT. Nodule size between 6-8 mm low risk patients - initial follow-up CT at 6-12 months and then at 18-24 months if no change high risk patients - initial follow-up CT at 3-6 months and then at 9-12 and 24 months if no change Note: newly detected indeterminate nodule in persons 35 years of age or older. low risk patients - minimal or absent history of smoking and or other known risk factors high risk patients - history of smoking or of other known risk factors Based on current guidelines*, a follow-up unenhanced low-dose CT can be obtained at clinical discretion. *Tiana H, Rene JM, Shay G, Todd CJ, Salvador JR, Lu DP, et al. Guidelines for Management of Small Pulmonary Nodules Detected on CT Scans: A Statement from the Fleischner Society. Radiology 2005;237:395-400. D/ / Frederick Lee MD / Frederick Lee MD Interpreting Provider: Frederick Lee MD Head CT 08/14/17 09:00 IMPRESSION: No acute intracranial abnormality. D/ / Frederick Lee MD / Frederick Lee MD Interpreting Provider: Frederick Lee MD Chest CTA 08/14/17 09:27 IMPRESSION: No evidence of pulmonary embolus. Emphysema. Secretions and mucous plugging within the bronchi lower lobes and lingula, worse on the right. Multiple tree-in-bud nodules in the lower lobes, likely infectious or inflammatory in etiology. Ground-glass nodules and nodular opacities in the lung apices most prominent left apex. Findings likely postinflammatory in represent scarring. Recommend follow-up in 3 months. D/ / Marietta Henriquez MD / Marietta Henriquez MD Interpreting Provider: Marietta Henriquez MD Echocardiogram 08/14/17 12:35 Impressions: LVEF 55-60%. Mild concentric left ventricular hypertrophy. Indeterminate diastolic function. Normal right ventricular structure and function. Bi-atrial enlargement. Moderate aortic stenosis by area. Moderate mitral regurgitation. Mild-moderate tricuspid regurgitation. Mild pulmonary hypertension. Left Ventricular Wall Motion: Rest Echo Findings The basal inferior and basal inferior septal bejarano were hypokinetic. All other wall segments showed normal motion. Findings: Study Quality * Technically adequate exam. ECG Findings * Atrial fibrillation. Left Ventricle * LVEF 55-60%. * Mild concentric left ventricular hypertrophy. * Indeterminate diastolic function. Right Ventricle * Normal right ventricular structure and function. Left Atrium * Moderately dilated left atrium. Right Atrium * Moderately dilated right atrium. Aortic Valve * No aortic regurgitation. * Moderately calcified aortic valve leaflets. * Moderate aortic stenosis by area, IVAN 1.3cm2. PV 2.4m/s, MG 13 mmHg, DI 0.41. Reduced gradient may be secondary to decreased SVI, 25 mL/m2 Mitral Valve * Mild-moderate mitral annular calcification * Mildly thickened and calcified mitral valve leaflets. * No mitral stenosis. * Moderate mitral regurgitation. Tricuspid Valve * Tricuspid valve not well visualized. * Mild-moderate tricuspid regurgitation. * Estimated RA pressure is 8 mmHg. * Estimated RVSP is 40 mmHg. * Mild pulmonary hypertension. Pulmonic Valve * Pulmonic valve is not well visualized. * No pulmonic stenosis. * No pulmonic regurgitation. Pulmonary Artery * Pulmonary artery not well visualized. Aorta * Not optimally visualized. Pericardium * There is no pericardial effusion present. Interatrial Septum * No evidence of PFO by color Doppler. IVC * The IVC is not dilated. * < 50% respiratory change. Head CTA 08/14/17 12:41 IMPRESSION: 1. Postsurgical changes are noted from aneurysm clippings of bilateral P-comms and the anterior communicating artery. There is streak artifact from the aneurysm clips, somewhat distorting adjacent anatomic detail. 2. No new aneurysms are identified. 3. 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 This may be exaggerated by streak artifact from the aneurysm clips. 4. No areas of abnormal contrast enhancement are noted in the cerebral or cerebellar parenchyma. 5. Thickened secretions in the left sphenoid sinus, correlate with signs of acute sinusitis. D/ / 08/14/2017 14:12:25 Marco Arriaza MD / Deidre Howell Interpreting Provider: Marco Arriaza MD Chest X-Ray 08/16/17 14:42 IMPRESSION: 1. Persistently enlarged cardiomediastinal silhouette. Mild prominence of interstitial lung markings may represent interstitial pulmonary edema versus chronic interstitial lung disease such as emphysema. 2. No focal consolidation, pneumothorax, or significant pleural effusion. D/ / 08/16/2017 15:16:30 Oliver Aguirre MD / [facility] Interpreting Provider: Oliver Aguirre MD Discharge discussed with: patient, family - Time Spent with Patient Total time spent providing and/or coordinating discharge services: - Discharge Medications Prescriptions: Azithromycin 250 mg PO QDPC #2 tablet Diltiazem HCl [Cardizem LA] 360 mg PO QDPC #30 tab.er.24h predniSONE [PredniSONE] 20 mg PO DAILY #14 tablet Home Medications: Albuterol Sulfate 2.5 mg IH Q4HR PRN 10/29/16 [History] Amitriptyline [Elavil] 25 mg PO DAILY 10/29/16 [History] BuPROPion SR (12 HR) [Wellbutrin SR] 150 mg PO DAILY 10/29/16 [History] Furosemide [Lasix] 40 mg PO DAILY 10/29/16 [History] LORazepam [Ativan] 1 mg PO BID PRN 10/29/16 [History] Magnesium Oxide [Magnesium] 400 mg PO DAILY 10/29/16 [History] Metoprolol [Lopressor] 50 mg PO BID 10/29/16 [History] Nitroglycerin [Nitrostat] 0.4 mg SL Q5M PRN 10/29/16 [History] Pantoprazole Sodium [Protonix] 40 mg PO DAILY 10/29/16 [History] PredniSONE [Madhu] 5 mg PO MOWEFR 10/29/16 [History] Roflumilast [Daliresp] 500 mcg PO DAILY 10/29/16 [History] Sertraline [Zoloft] 100 mg PO DAILY 10/29/16 [History] Acetaminophen/Butalbital/Caffe [Fioricet] 1 each PO Q6HR PRN 08/14/17 [History] Cyclobenzaprine [Flexeril] 10 mg PO TID PRN 08/14/17 [History] Azithromycin 250 mg PO QDPC #2 tablet 08/18/17 [Rx] Diltiazem HCl [Cardizem LA] 360 mg PO QDPC #30 tab.er.24h 08/18/17 [Rx] predniSONE [PredniSONE] 20 mg PO DAILY #14 tablet 08/18/17 [Rx] Allergies/Adverse Reactions: 3 Allergy/AdvReac Type Severity Reaction Status Date / Time No Known Allergies Allergy Verified 08/14/17 10:26 Date of admission: 08/14/17 11:28 Primary care physician: Phu Hensley DO Consults: 08/14/17 12:28 Consult to Nurse Navigator [CONS] Routine Comment: 08/14/17 12:52 Consult to Infusion Pharmacist [CONS] Routine Reason for SW Consult: d/c planning, patient requesting small portable concentrator for oxygen and nebulizer. Discharging clinician: Johnny Silva - Constitutional Vitals: Temp Pulse Resp BP Pulse Ox 98.5 F 100 18 154/92 94 08/18/17 07:09 08/18/17 08:26 08/18/17 07:09 08/18/17 07:09 08/18/17 07:09 General appearance: Present: A&O X 3, pleasant, no acute distress, answers questions appropriately - Head Head exam: Present: atraumatic - ENT ENT exam: Present: mucous membranes moist - Neck Neck exam general surgery: Present: full ROM, normal inspection - Respiratory Respiratory exam: Present: rhonchi (Mild) - Cardiovascular Cardiovascular exam: Present: irregular rhythm, systolic murmur (2 out of 5 at the RUSB, 3 out of 5 at the left apex). Absent: JVD - GI/Abdominal GI/Abdominal exam: Present: soft. Absent: firm, guarding, rebound, rigid - Extremities Exam Extremities exam: Absent: pedal edema - Neurological Exam Neurological exam: Present: CN II-XII intact, oriented X3 - Patient Status Disposition: Home, Self-Care Condition: Good Overall status at discharge: patient is progressing back to baseline - Discharge Instructions Instructions: Atrial Fibrillation (DC), Acute Respiratory Distress Syndrome (DC ), Chronic Obstructive Pulmonary Disease (DC), Chronic Hypertension (DC), Pneumonia (DC), COPD Exacerbation, [facility] [facility] (GEN) Follow Up With: Jahaira Henao CNP [Advanced Practice Nurse] - 08/25/17 10:00 am Robb Webb CNP [Advanced Practice Nurse] - Josue Trujillo MD [Partnered Physician] - 08/30/17 10:15 am Additional Instructions: Take all medications as prescribed. Use your normal oxygen at home. Use your BiPAP at night. Return to the emergency department if you have any worsening of your current symptoms or if you develop any new symptoms. Set up an appointment with cardiology regarding your echocardiogram and to check your heart rate. I want them to see in the next 2 weeks. Set up an appointment with Dr. Ely at [facility] in regards to your CTA revealing moderate stenosis of the right middle cerebral artery for follow-up in the next 2 weeks. Set up an appointment with your primary care provider for follow-up regarding her hospital visit for a recheck in 7 days. - Diet and Activity Activity: increase activity as tolerated Diet: advance to your usual diet <Johnny Silva - Last Filed: 08/18/17 17:32> Date of Encounter: 08/18/17 - Discharge Diagnosis (1) Acute on chronic respiratory failure with hypoxia and hypercapnia Status: Acute (2) Acute exacerbation of chronic obstructive airways disease Status: Acute (3) Atrial fibrillation Status: Acute Qualifiers: Atrial fibrillation type: chronic Qualified Code(s): I48.2 - Chronic atrial fibrillation (4) Hypertension Priority: Secondary Status: Chronic Qualifiers: Hypertension type: essential hypertension Qualified Code(s): I10 - Essential (primary) hypertension (5) Aneurysm, cerebral Priority: Secondary Status: Chronic (6) Headache Status: Chronic Qualifiers: Headache type: unspecified Headache chronicity pattern: chronic headache Intractability: intractable Qualified Code(s): R51 - Headache Hospital course: Ms. Gaines is a 72 year old female - Time Spent with Patient Total time spent providing and/or coordinating discharge services: 37min Date of admission: 08/14/17 11:28 Primary care physician: Phu Hensley DO Consults: 08/14/17 12:28 Consult to Nurse Navigator [CONS] Routine Comment: 08/14/17 12:52 Consult to Infusion Pharmacist [CONS] Routine Reason for SW Consult: d/c planning, patient requesting small portable concentrator for oxygen and nebulizer. - Constitutional Vitals: Temp Pulse Resp BP Pulse Ox 98.5 F 71 18 128/85 94 08/18/17 11:14 08/18/17 11:14 08/18/17 11:14 08/18/17 11:14 08/18/17 11:14 - Attending Attestation I examined this patient and my medical decision-making was reviewed with the Resident Physician on 08/18/17. I agree with the documented findings, disposition and treatment plan as described except to the extent set forth below. Ms Gaines has been admitted for acute exac COPD and rapid a fib. Her heartrate has improved with increased Cardizem. She is afebrile at this time. Her breathing has improved and she is having bipap set up at home. She is ready for discharge home today. Exam alert Comfortable Mucus membranes dry Heart irreg but not tachy No wheeze at this time Plan D/C home today.
[2017-08-18 11:16] VITALS: BP 128/85
[2017-08-18] MEDS ORDERED: Azithromycin 250 MG TABLET PO SCH (13:00)
--- NOTE | 2017-08-19 10:35 | Physician Discharge Referral ---
Home Health/Hosp Referral Info Transfer to: Home Health Provider in Charge Post Discharge: PCP - Diagnosis (1) Acute exacerbation of chronic obstructive airways disease Priority: Primary Status: Resolved (2) Mitral regurgitation and aortic stenosis Priority: Primary Status: Chronic (3) Acute on chronic respiratory failure with hypoxia and hypercapnia Priority: Primary Status: Resolved (4) Mycoplasma pneumonia Priority: Primary Status: Resolved (5) Atrial fibrillation Priority: Primary Status: Chronic (6) DVT prophylaxis Priority: Secondary Status: Resolved (7) H/O cerebral aneurysm repair Priority: Primary Status: Chronic (8) Headache Priority: Primary Status: Chronic - Respiratory Orders Oxygen / L per min (Home Bipap, continue home O2) Smoking Cessation: Smoking cessation has been advised. For more information, call the [place] Tobacco Quit Line at 4-703-KJCW-NOW. - Diet/Nutrition Diet/Nutrition Orders: Cardiac - Services Needed Following services are medically necessary services: Nursing, Physical Therapy - Transfer Medications Prescriptions: Azithromycin 250 mg PO QDPC #2 tablet Diltiazem HCl [Cardizem LA] 360 mg PO QDPC #30 tab.er.24h predniSONE [PredniSONE] 20 mg PO DAILY #14 tablet Home Medications: Albuterol Sulfate 2.5 mg IH Q4HR PRN 10/29/16 [History] Amitriptyline [Elavil] 25 mg PO DAILY 10/29/16 [History] BuPROPion SR (12 HR) [Wellbutrin SR] 150 mg PO DAILY 10/29/16 [History] Furosemide [Lasix] 40 mg PO DAILY 10/29/16 [History] LORazepam [Ativan] 1 mg PO BID PRN 10/29/16 [History] Magnesium Oxide [Magnesium] 400 mg PO DAILY 10/29/16 [History] Metoprolol [Lopressor] 50 mg PO BID 10/29/16 [History] Nitroglycerin [Nitrostat] 0.4 mg SL Q5M PRN 10/29/16 [History] Pantoprazole Sodium [Protonix] 40 mg PO DAILY 10/29/16 [History] PredniSONE [Madhu] 5 mg PO MOWEFR 10/29/16 [History] Roflumilast [Daliresp] 500 mcg PO DAILY 10/29/16 [History] Sertraline [Zoloft] 100 mg PO DAILY 10/29/16 [History] Acetaminophen/Butalbital/Caffe [Fioricet] 1 each PO Q6HR PRN 08/14/17 [History] Cyclobenzaprine [Flexeril] 10 mg PO TID PRN 08/14/17 [History] Azithromycin 250 mg PO QDPC #2 tablet 08/18/17 [Rx] Diltiazem HCl [Cardizem LA] 360 mg PO QDPC #30 tab.er.24h 08/18/17 [Rx] predniSONE [PredniSONE] 20 mg PO DAILY #14 tablet 08/18/17 [Rx] Allergies/Adverse Reactions: 3 Allergy/AdvReac Type Severity Reaction Status Date / Time No Known Allergies Allergy Verified 08/14/17 10:26 Certification: Further, I certify that my clinical findings support that this patient is homebound (i.e. absences from home require considerable and taxing effort and are for medical reasons or restoration services or infrequently or short duration when for other reasons) because: Homebound Reason: Patient requires assistance of a person or device to safely leave home, Leaving home requires considerable and taxing effort due to condition, Severity of cardiac or pulmonary status limits activity tolerance Attestation: My signature below is to certify that this patient is under my care and that I, or nurse practitioner, or a physician's professional nursing assistant working with me, has a face-to -face encounter with this patient.
== END 2017-08-18 12:59 | disposition home or self-care (01) | DRG 190 ==
LOC: EMEROO 08:18 → SUATTDRO 11:28 → 2NNU 11:28
PROVIDERS: ADMIT Student in an Organized Health Care Education/Training Program; ATTEND Internal Medicine

== ENCOUNTER 2017-10-03 23:16 | Inpatient (IN) ==
[2017-10-04] MEDS ORDERED: Isovue-370 500 ML INFUS..BTL IV ONE (00:16)
--- NOTE | 2017-10-04 00:25 | Emergency Department Note ---
Disposition Clinical Impression: Shortness of breath, Atrial fibrillation with RVR Chest pain Qualifiers: Chest pain type: unspecified Qualified Code(s): R07.9 - Chest pain, unspecified Sepsis Qualifiers: Sepsis type: sepsis due to unspecified organism Qualified Code(s): A41.9 - Sepsis, unspecified organism Disposition: Admitted As Inpatient Condition: Serious Time of Disposition: 03:56 General Adult HPI - General Chief complaint: ED Shortness of Breath/Dyspnea Stated complaint: SOB/Chest Pain Time Seen by Provider: 10/03/17 23:36 Source: patient Limitations: no limitations Nursing Notes Reviewed: Yes Vital Signs Reviewed: Yes - History of Present Illness HPI Narrative: Patient is a 72-year-old female that presents the emergency department with chest pain and shortness of breath. She states that this began while she was cooking chili. Patient states that she does wear 3 L of home oxygen but her shortness of breath is significantly worse than normal. Patient states that the pain is in the center of her chest and will radiate up into the back of her neck. Patient also states that she has been having nausea and vomiting. Patient states that she has had similar pain like this in the past with decreased oxygen saturations when she had a pneumonia. Family and the room also states that they have a home pulse oximeter which she was down into the 70s. Pain Scale: 8 - Related Data Home Medications Medication Instructions Recorded Confirmed Albuterol Sulfate 2.5 mg IH Q4HR PRN 10/29/16 08/14/17 Amitriptyline [Elavil] 25 mg PO DAILY 10/29/16 08/14/17 BuPROPion SR (12 HR) [Wellbutrin 150 mg PO DAILY 10/29/16 08/14/17 SR] Furosemide [Lasix] 40 mg PO DAILY 10/29/16 08/14/17 LORazepam [Ativan] 1 mg PO BID PRN 10/29/16 08/14/17 Magnesium Oxide [Magnesium] 400 mg PO DAILY 10/29/16 08/14/17 Metoprolol [Lopressor] 50 mg PO BID 10/29/16 08/14/17 Nitroglycerin [Nitrostat] 0.4 mg SL Q5M PRN 10/29/16 08/14/17 Pantoprazole Sodium [Protonix] 40 mg PO DAILY 10/29/16 08/14/17 PredniSONE [Madhu] 5 mg PO MOWEFR 10/29/16 08/14/17 Roflumilast [Daliresp] 500 mcg PO DAILY 10/29/16 08/14/17 Sertraline [Zoloft] 100 mg PO DAILY 10/29/16 08/14/17 Acetaminophen/Butalbital/Caffe 1 each PO Q6HR PRN 08/14/17 08/14/17 [Fioricet] Cyclobenzaprine [Flexeril] 10 mg PO TID PRN 08/14/17 08/14/17 Previous Rx's Medication Instructions Recorded Azithromycin 250 mg PO QDPC #2 tablet 08/18/17 Diltiazem HCl [Cardizem LA] 360 mg PO QDPC #30 tab.er.24h 08/18/17 predniSONE [PredniSONE] 20 mg PO DAILY #14 tablet 08/18/17 Allergies Allergy/AdvReac Type Severity Reaction Status Date / Time No Known Allergies Allergy Verified 10/03/17 23:45 All systems ED: reviewed and negative except as stated. Constitutional: Reports: chills Cardiovascular: Reports: chest pain Respiratory: Reports: dyspnea Gastrointestinal: Reports: nausea, vomiting. Denies: abdominal pain Musculoskeletal: Reports: neck pain Past Medical History - Past Medical History Medical history: Reports: atrial fibrillation, COPD, hyperlipidemia, hypertension, other Surgical history: Reports: other Psychiatric history: Reports: no psych history TECH INTERN history: Reports: bilateral tubal ligation - Social History Smoking Status: Former smoker Smokeless Tobacco Status: No Alcohol use: Reports: none Drug use: Reports: none Physical Exam - General Limitations: no limitations General appearance: alert, in no apparent distress - Head Head exam: atraumatic, normocephalic - Eye Eye exam: Present: normal appearance, EOMI - Neck Neck exam: Present: normal inspection, full ROM, trachea midline - Respiratory Respiratory exam: Present: other (Crackles in the left lung.) - Cardiovascular Cardiovascular exam: Present: regular rate, normal rhythm, normal heart sounds, +S1, +S2 - Abdominal Exam Abdominal exam: Present: soft, Non-Tender, normal bowel sounds - Neurological Exam Neurological exam: Present: alert, oriented X3 - Psychiatric Psychiatric exam: Present: normal affect, normal mood - Skin Skin exam: Present: warm, dry, intact Course Vital Signs Temperature 99.4 F 10/03/17 23:45 Pulse Rate 107 10/03/17 23:45 Respiratory Rate 22 10/03/17 23:45 Blood Pressure 125/80 10/03/17 23:45 O2 Sat by Pulse Oximetry 86 10/03/17 23:45 Temperature 99.4 F 10/03/17 23:45 Pulse Rate 122 10/04/17 04:55 Respiratory Rate 22 10/04/17 05:21 Blood Pressure 109/71 10/04/17 05:21 O2 Sat by Pulse Oximetry 97 10/04/17 04:55 Oxygen Delivery Oxygen Delivery Room Air Medical Decision Making - MDM Narrative Medical decision making narrative: Due the patient presenting to the emergency department with chest pain and shortness of breath we will obtain a CBC, BMP, chest x-ray and EKG, troponin we will also do CTs of the chest abdomen and pelvis rule out possible PE versus aortic pathology. CT scans were negative for PE and dissection. Patient did have an elevated white count. The chest x-ray showed a left basilar opacity that was consistent with pneumonia. EKG did show atrial fibrillation with rapid ventricular response however I feel that the tachycardia is likely secondary to the sepsis associated with a pneumonia. The patient will be started on IV antibiotics including vancomycin, Zosyn and Levaquin. Patient is also been given IV fluids here in the emergency department. The patient met surgical is. With elevated heart rate, respiratory rate and white blood cell count. The patient has a source of infection with the pneumonia on the chest x- ray. The patient meets sepsis criteria and was started on broad-spectrum antibiotics and given fluids. Her lactic acid was 1.2. Based on these findings I feel that the patient needs to be admitted to the hospital for further evaluation and management. The patient is in agreement with this. I called and spoke with the hospitalist and they have accepted the patient to their service. The patient will be admitted to the hospital at this time. - Medical Records Medical records reviewed: Yes I reviewed the patient's medical records. - Lab Data Lab results reviewed: Yes I reviewed the patient's lab results. Result diagrams: 10/04/17 01:57 10/04/17 01:19 Lab Results 10/04/17 10/04/17 10/04/17 Range/Units 01:19 01:19 01:19 WBC (4.3-11.1) K/mcL RBC (3.82-4.97) M/mcL Hgb (11.5-15.4) g/dL Hct (35.3-44.9) % MCV (83.0-100.0) fL MCH (28.0-33.3) pg MCHC (31.6-35.5) g/dL RDW (11.5-14.5) % Plt Count (140-400) K/mcL MPV (9.4-12.4) fL Immature Gran % (0-4) % Seg Neutrophils % % Lymphocytes % % Monocytes % % Eosinophils % % Basophils % % Neutrophils # (1.6-8.9) K/mcL Lymphocytes # (0.6-4.6) K/mcL Monocytes # (0.0-1.3) K/mcL Eosinophils # (0.0-0.6) K/mcL Basophils # (0.0-0.2) K/mcL Sodium 138 (136-145) mEq/L Potassium 3.9 (3.5-5.1) mEq/L Chloride 93 L (98-107) mEq/L Carbon Dioxide 32 H (23-29) mEq/L BUN 15 (8-23) mg/dL Creatinine 0.75 (0.60-1.20) mg/dL Est GFR ( Amer) > 60 (> 60) Est GFR (Non-Af Amer) > 60 (> 60) BUN/Creatinine Ratio 20 (6-26) Glucose 122 H (70-105) mg/dL Calculated Osmolality 288 (280-300) Lactic Acid 1.2 (0.5-2.2) mmol/L Calcium 9.2 (8.6-10.3) mg/dL Magnesium 1.7 (1.6-2.6) mg/dL Troponin I < 0.03 (< 0.04) ng/mL B-Natriuretic Peptide 136 H (Less than 100) pg/mL Specimen Rejected 10/04/17 10/04/17 Range/Units 01:19 01:57 WBC 14.8 H (4.3-11.1) K/mcL RBC 3.64 L (3.82-4.97) M/mcL Hgb 11.3 L (11.5-15.4) g/dL Hct 34.5 L (35.3-44.9) % MCV 94.8 D (83.0-100.0) fL MCH 31.0 (28.0-33.3) pg MCHC 32.8 (31.6-35.5) g/dL RDW 14.2 (11.5-14.5) % Plt Count 158 (140-400) K/mcL MPV 10.6 (9.4-12.4) fL Immature Gran % 0.5 (0-4) % Seg Neutrophils % 86.8 % Lymphocytes % 4.1 % Monocytes % 8.3 % Eosinophils % 0.1 % Basophils % 0.2 % Neutrophils # 12.9 H (1.6-8.9) K/mcL Lymphocytes # 0.6 (0.6-4.6) K/mcL Monocytes # 1.2 (0.0-1.3) K/mcL Eosinophils # 0.0 (0.0-0.6) K/mcL Basophils # 0.0 (0.0-0.2) K/mcL Sodium (136-145) mEq/L Potassium (3.5-5.1) mEq/L Chloride (98-107) mEq/L Carbon Dioxide (23-29) mEq/L BUN (8-23) mg/dL Creatinine (0.60-1.20) mg/dL Est GFR ( Amer) (> 60) Est GFR (Non-Af Amer) (> 60) BUN/Creatinine Ratio (6-26) Glucose (70-105) mg/dL Calculated Osmolality (280-300) Lactic Acid (0.5-2.2) mmol/L Calcium (8.6-10.3) mg/dL Magnesium (1.6-2.6) mg/dL Troponin I (< 0.04) ng/mL B-Natriuretic Peptide (Less than 100) pg/mL Specimen Rejected MCV Delta - Radiology Data Radiology results reviewed: Yes I reviewed the patient's radiology results. Abdomen CTA 10/04/17 00:16 IMPRESSION: CHEST/VASCULAR No evidence of an acute aortic syndrome. No evidence of acute pulmonary embolism to the segmental level. Multifocal consolidative/ ground-glass opacities and tree-in-bud nodularity, most pronounced at the lung bases. Although pneumonia is a consideration, these findings are most suspicious for aspiration sequela given basal predominance, small airway mucoid impaction and dependent secretions within the trachea. Heavy aortic valvular calcifications may be seen with aortic stenosis. Correlate with auscultation and consider evaluation with echocardiography if not already performed. Mild four-chamber cardiomegaly. ABDOMEN/PELVIS No acute abdominopelvic findings. Extensive colonic diverticulosis without evidence of diverticulitis. IMPRESSION: No evidence of pulmonary embolism or acute pulmonary abnormality. D/ / Arben Winkler / Arben Winkler Interpreting Provider: Arben Winkler Chest CTA 10/04/17 00:16 IMPRESSION: CHEST/VASCULAR No evidence of an acute aortic syndrome. No evidence of acute pulmonary embolism to the segmental level. Multifocal consolidative/ ground-glass opacities and tree-in-bud nodularity, most pronounced at the lung bases. Although pneumonia is a consideration, these findings are most suspicious for aspiration sequela given basal predominance, small airway mucoid impaction and dependent secretions within the trachea. Heavy aortic valvular calcifications may be seen with aortic stenosis. Correlate with auscultation and consider evaluation with echocardiography if not already performed. Mild four-chamber cardiomegaly. ABDOMEN/PELVIS No acute abdominopelvic findings. Extensive colonic diverticulosis without evidence of diverticulitis. IMPRESSION: No evidence of pulmonary embolism or acute pulmonary abnormality. D/ / Arben Winkler / Arben Winkler Interpreting Provider: Arben Winkler Chest X-Ray 10/04/17 23:52 IMPRESSION: Patchy left basilar opacity suspicious for aspiration or pneumonia. Background features of emphysema with smoking-related airway inflammation and obstructive small airways disease. D/ / Arben Winkler / Arben Winkler Interpreting Provider: Arben Winkler - EKG Data EKG #1 EKG attestation: Yes I reviewed and interpreted this EKG. EKG results narrative: EKG shows atrial fibrillation with rapid ventricular response. Heart rate of 106, QS duration of 96, QTc of 375. This is compared to previous EKG on which else's old age fibrillation at a rate of 94 bpm. Attestation Statement - Attestation Attestation: I examined this patient and my medical decision-making was reviewed with the Resident Physician. I agree with the documented findings, disposition and treatment plan as described except to the extent set forth below. Pneumonia, A. fib with RVR, on beta hawa at home. We will treat with broad-spectrum antibiotics, obtain cultures, heart rate control with IV fluids as well as beta- blockade. Patient will be admitted for further management. Hypoxia improved with oxygen. I spent greater than 35 minutes of critical care time resuscitating this acutely ill patient suffering from hypoxia and sepsis with rapid heartbeat. This was excluding billable procedures.
[2017-10-04] MEDS ORDERED: 0.9 % Sodium Chloride 1,000 ML IVC ONE ×2 (01:40→03:37)
[2017-10-04] MEDS ORDERED: Acetaminophen IV 1,000 MG/100 ML INFUS..BTL IVPB ONE (01:43)
[2017-10-04 01:52] LABS: BUN/Creatinine Ratio 20 (6-26); Blood Urea Nitrogen 15 mg/dL (8-23); Calcium 9.2 mg/dL (8.6-10.3); Carbon Dioxide 32 mEq/L (23-29); Chloride 93 mEq/L (98-107); Glucose 122 mg/dL (70-105); Osmolality,Calculated 288 (280-300); Potassium 3.9 mEq/L (3.5-5.1); Sodium 138 mEq/L (136-145); eGFR For African Americans > 60 (> 60); eGFR For Non-African Americans > 60 (> 60)
[2017-10-04 01:53] LABS: Troponin I < 0.03 ng/mL (< 0.04)
[2017-10-04 02:05] LABS: Basophils % 0.2 %; Eosinophils % 0.1 %; Hematocrit 34.5 % (35.3-44.9); Hemoglobin 11.3 g/dL (11.5-15.4); Immature Granulocytes % 0.5 % (0-4); Lymphocytes # 0.6 K/mcL (0.6-4.6); Lymphocytes % 4.1 %; Mean Corpuscular HGB Conc 32.8 g/dL (31.6-35.5); Mean Corpuscular Volume 94.8 fL (83.0-100.0); Mean Platelet Volume 10.6 fL (9.4-12.4); Monocytes # 1.2 K/mcL (0.0-1.3); Monocytes % 8.3 %; Neutrophils # 12.9 K/mcL (1.6-8.9); Platelet Count 158 K/mcL (140-400); Red Blood Count 3.64 M/mcL (3.82-4.97); Red Cell Distribution Width 14.2 % (11.5-14.5); Segmented Neutrophils % 86.8 %
[2017-10-04] MEDS ORDERED: Piperacillin/Tazobactam 3.375 GM in 0.9 % Sodium Chloride Mini Bag 100 ML IVPB ONE (02:44)
[2017-10-04] MEDS ORDERED: Levofloxacin 750 MG/150 ML 750 MG/150 ML BAG IVPB ONE (02:44)
[2017-10-04] MEDS ORDERED: *HR* Metoprolol 5 MG/5 ML VIAL IVP ONE ×2 (03:40→09:10)
[2017-10-04] MEDS ORDERED: Ondansetron 4 MG/2 ML VIAL IVP PRN (03:54)
[2017-10-04] MEDS ORDERED: Naloxone 0.4 MG/ML INJ IVP PRN (03:55)
--- NOTE | 2017-10-04 04:32 | Internal Med History&Physical ---
Date of Encounter: 10/04/17 Time of Encounter: 04:28 Internal Medicine - H&P: HPI Chief complaint: shortness of breath Admitted From: Emergency Dept Plans for Post Hospital Care: Home History of present illness: Ms. Gaines is a 72 year old female with history of COPD on 3L O2 at home, asthma, atrial fibrillation not on anticoagulation, HTN, H/O GIB, cerebral aneurysms s/p aneurysm clips presented for shortness of breath. Patient lives alone and her son and daughter in law stay next door. She has not been feeling her self for 2 days or so. She is lethargic and short of breath. Positive for a productive yellow cough. Today she was cooking when she suddenly felt chest pain with inspiration radiating to her back. Her oxygenation were checked at home and she was in the 70s. She called her [id number] and she was brought to the hospital for again she was satting in the 80s on 3 L nasal cannula which she is on chronically. Workup in the ED showed pneumonia. Laboratory workup showed leukocytosis. Normal lactic acid. EKG showed A. fib. Initially her rate was in the low 100s however when I went and evaluated the patient she is up to the 160s. She had received 1-2 L of IV fluids in the ED and 5 mg of IV metoprolol. She denies any headache, blurry vision, nausea, vomiting, abdominal pain, diarrhea, constipation, urinary symptoms, or neurological symptoms. The patient was given IV Levaquin, vancomycin, and Zosyn in the ED to cover for healthcare associated pneumonia as she was recently hospitalized. Past Med Surg Social Fam HX - Past Medical History Medical history: atrial fibrillation, COPD, hyperlipidemia, hypertension, other Psychiatric history: no psych history - Past Surgical History Surgical History: other - Social History Smoking Status: Former smoker Smokeless Tobacco Status: No Alcohol use: none Drug use: none Internal Medicine - H&P: Meds Albuterol Sulfate 2.5 mg IH Q4HR PRN 10/29/16 [History] Amitriptyline [Elavil] 25 mg PO DAILY 10/29/16 [History] BuPROPion SR (12 HR) [Wellbutrin SR] 150 mg PO DAILY 10/29/16 [History] Furosemide [Lasix] 40 mg PO DAILY 10/29/16 [History] LORazepam [Ativan] 1 mg PO BID PRN 10/29/16 [History] Magnesium Oxide [Magnesium] 400 mg PO DAILY 10/29/16 [History] Metoprolol [Lopressor] 50 mg PO BID 10/29/16 [History] Nitroglycerin [Nitrostat] 0.4 mg SL Q5M PRN 10/29/16 [History] Pantoprazole Sodium [Protonix] 40 mg PO DAILY 10/29/16 [History] PredniSONE [Madhu] 5 mg PO MOWEFR 10/29/16 [History] Roflumilast [Daliresp] 500 mcg PO DAILY 10/29/16 [History] Sertraline [Zoloft] 100 mg PO DAILY 10/29/16 [History] Acetaminophen/Butalbital/Caffe [Fioricet] 1 each PO Q6HR PRN 08/14/17 [History] Cyclobenzaprine [Flexeril] 10 mg PO TID PRN 08/14/17 [History] Azithromycin 250 mg PO QDPC #2 tablet 08/18/17 [Rx] Diltiazem HCl [Cardizem LA] 360 mg PO QDPC #30 tab.er.24h 08/18/17 [Rx] predniSONE [PredniSONE] 20 mg PO DAILY #14 tablet 08/18/17 [Rx] 3 Allergy/AdvReac Type Severity Reaction Status Date / Time No Known Allergies Allergy Verified 10/03/17 23:45 All Systems PM: A 10-system review of systems was performed and is negative for pertinent findings except as documented above in the HPI. Review of systems: All systems reviewed are negative except as mentioned above - Constitutional Vitals: Temp Pulse Resp BP Pulse Ox 99.4 F 117 22 110/66 90 10/03/17 23:45 10/04/17 03:10 10/04/17 03:10 10/04/17 03:10 10/04/17 03:10 Exam: GEN: NAD HEENT: AT, NC, No cyanosis, oral mucosa is moist, No JVD Lymphatics: No lymphadenoapthy Eyes: Extrocular muscles intact, anicteric CVS:RRR. S1, S2, No m/r/g RESP: Diminished with coarse breath sounds on the left base. ABD: Soft, NT, ND, +BS EXT: No edema, No rashes, 2+ DP NEURO: Nonfocal, CN II-XII intact, No focal motor or sensory deficits Psych: Cooperative, Not anxious or depressed Internal Med - H&P Results - Labs CBC & Chem 7: 10/04/17 01:57 10/04/17 01:19 Labs: Short CBC 10/04/17 Range/Units 01:57 WBC 14.8 H (4.3-11.1) K/mcL Hgb 11.3 L (11.5-15.4) g/dL Hct 34.5 L (35.3-44.9) % Plt Count 158 (140-400) K/mcL Neutrophils # 12.9 H (1.6-8.9) K/mcL BMP 10/04/17 01:19 Sodium 138 Potassium 3.9 Chloride 93 L Carbon Dioxide 32 H BUN 15 Creatinine 0.75 Glucose 122 H Calcium 9.2 Cardiac Enzymes 10/04/17 Range/Units 01:19 Troponin I < 0.03 (< 0.04) ng/mL - Impressions ITS Impressions Abdomen CTA 10/04/17 00:16 IMPRESSION: CHEST/VASCULAR No evidence of an acute aortic syndrome. No evidence of acute pulmonary embolism to the segmental level. Multifocal consolidative/ ground-glass opacities and tree-in-bud nodularity, most pronounced at the lung bases. Although pneumonia is a consideration, these findings are most suspicious for aspiration sequela given basal predominance, small airway mucoid impaction and dependent secretions within the trachea. Heavy aortic valvular calcifications may be seen with aortic stenosis. Correlate with auscultation and consider evaluation with echocardiography if not already performed. Mild four-chamber cardiomegaly. ABDOMEN/PELVIS No acute abdominopelvic findings. Extensive colonic diverticulosis without evidence of diverticulitis. IMPRESSION: No evidence of pulmonary embolism or acute pulmonary abnormality. D/ / Arben Winkler / Arben Winkler Interpreting Provider: Arben Winkler Chest CTA 10/04/17 00:16 IMPRESSION: CHEST/VASCULAR No evidence of an acute aortic syndrome. No evidence of acute pulmonary embolism to the segmental level. Multifocal consolidative/ ground-glass opacities and tree-in-bud nodularity, most pronounced at the lung bases. Although pneumonia is a consideration, these findings are most suspicious for aspiration sequela given basal predominance, small airway mucoid impaction and dependent secretions within the trachea. Heavy aortic valvular calcifications may be seen with aortic stenosis. Correlate with auscultation and consider evaluation with echocardiography if not already performed. Mild four-chamber cardiomegaly. ABDOMEN/PELVIS No acute abdominopelvic findings. Extensive colonic diverticulosis without evidence of diverticulitis. IMPRESSION: No evidence of pulmonary embolism or acute pulmonary abnormality. D/ / Arben Winkler / Arben Winkler Interpreting Provider: Arben Winkler Chest X-Ray 10/04/17 23:52 IMPRESSION: Patchy left basilar opacity suspicious for aspiration or pneumonia. Background features of emphysema with smoking-related airway inflammation and obstructive small airways disease. D/ / Arben Winkler / Arebn Winkler Interpreting Provider: Arben Winkler - Assessment and plan (1) Acute and chronic respiratory failure ([id number]) Current Visit: Yes Status: Acute Assessment and plan: I think this is all secondary to pneumonia. We will treat healthcare associated pneumonia as below. Qualifiers: Respiratory failure complication: hypoxia Qualified Code(s): J96.21 - Acute and chronic respiratory failure with hypoxia (2) Sepsis Current Visit: Yes Status: Acute Assessment and plan: Patient meets sepsis criteria secondary to pneumonia. We will treat underlying cause as below. Qualifiers: Sepsis type: sepsis due to unspecified organism Qualified Code(s): A41.9 - Sepsis, unspecified organism (3) HCAP (healthcare-associated pneumonia) Current Visit: Yes Status: Acute Assessment and plan: We will place the patient on IV vancomycin and Zosyn. Nebs treatment. O2 support and wean as tolerated. Check urine strep and Legionella and sputum cultures. Blood cultures were not collected in the ED and the patient had already received antibiotics. We will check blood cultures if the patient spikes a fever. (4) Atrial fibrillation with RVR Current Visit: Yes Status: Acute Assessment and plan: Likely triggered by her infection. Gently hydrate. Resume home meds once verified. Patient is status post 5 mg IV metoprolol in the ED. We will place the patient on Cardizem drip. Check magnesium level. No anticoagulation due to history of GI bleed. (5) Chest pain Current Visit: Yes Status: Acute Assessment and plan: I think this is all stemming from A. fib and pneumonia. We will trend cardiac enzymes were now. Keep on telemetry Qualifiers: Chest pain type: unspecified Qualified Code(s): R07.9 - Chest pain, unspecified (6) Hypertension Current Visit: No Status: Chronic Assessment and plan: Continue home meds Qualifiers: Hypertension type: essential hypertension Qualified Code(s): I10 - Essential (primary) hypertension (7) DVT prophylaxis Current Visit: No Status: Resolved Assessment and plan: Heparin subcutaneous - Time Spent With Patient Total time spent is greater than 50% in coordination of care (as documented) at patient's floor/unit and/or counseling patient:
[2017-10-04] MEDS: Ipratropium/Albuterol Neb 3 ML IH SCH ×4 (04:47→21:07)
[2017-10-04 04:53] LABS: Magnesium 1.7 mg/dL (1.6-2.6)
[2017-10-04] MEDS: *HR* Heparin 5,000 UNIT/ML VIAL SQ SCH (06:05)
[2017-10-04] MEDS: Acetaminophen 325 MG TABLET PO PRN (06:15)
[2017-10-04] MEDS: 0.9 % Sodium Chloride 1,000 ML IVC SCH ×2 (06:16→19:12)
[2017-10-04] MEDS: Piperacillin/Tazobactam 3.375 GM in 0.9 % Sodium Chloride Mini Bag 100 ML IVPB SCH ×2 (12:08→19:12)
--- NOTE | 2017-10-04 12:36 | Internal Med Progress Note ---
Date of Encounter: 10/04/17 Time of Encounter: 12:34 - Assessment and plan (1) Acute and chronic respiratory failure ([id number]) Current Visit: Yes Status: Acute Assessment and plan: Secondary to pneumonia with COPD Treating for HCAP Add Prednisone Qualifiers: Respiratory failure complication: hypoxia Qualified Code(s): J96.21 - Acute and chronic respiratory failure with hypoxia (2) Sepsis Current Visit: Yes Status: Acute Assessment and plan: Patient meets sepsis criteria on admission with leukocytosis, tachycardia, tachypnea. Afebrile.secondary to pneumonia. Source is pneumonia Continue vancomycin/zosyn. Follow-up blood cultures, urine antigents. Qualifiers: Sepsis type: sepsis due to unspecified organism Qualified Code(s): A41.9 - Sepsis, unspecified organism (3) HCAP (healthcare-associated pneumonia) Current Visit: Yes Status: Acute Assessment and plan: Continue vancomycin and Zosyn. Duo Nebs Supplemental O2 titrate as needed. Follow-up S pneumonia and Legionella antigens Follow-up blood cultures. Blood cultures were not collected in the ED and the patient had already received antibiotics. Speech therapy consult as patient aspiration risk and CT chest findings noted possible aspiration. (4) Atrial fibrillation with RVR Current Visit: Yes Status: Acute Assessment and plan: Likely triggered by her infection. Continue to Gently hydrate, normal saline at 100 ml/hr. Resuming home medications: Cardizem PO, Metoprolol. Stop Cardizem drip. No anticoagulation due to history of GI bleed. (5) Chest pain Current Visit: Yes Status: Acute Assessment and plan: Likely from A. fib and pneumonia. Troponin negative Continue Cycle cardiac enzymes. CTA chest negative for pulmonary embolism, negative for aortic aneurysm Qualifiers: Chest pain type: unspecified Qualified Code(s): R07.9 - Chest pain, unspecified (6) Hypertension Current Visit: No Status: Chronic Assessment and plan: Continue home meds Metoprolol PO Cardizem PO Was hypotensive on Cardizem drip and so currently being held. Qualifiers: Hypertension type: essential hypertension Qualified Code(s): I10 - Essential (primary) hypertension (7) DVT prophylaxis Current Visit: No Status: Resolved Assessment and plan: Heparin subcutaneous - Time Spent With Patient Total time spent is greater than 50% in coordination of care (as documented) at patient's floor/unit and/or counseling patient: - Subjective Interval history: No acute events overnight. See H&P from early this AM. Patient N/V improving. Chest pain remains but improving as well. Complains of more respiratory difficulty as well. Denies fevers/chills, n/v. - Constitutional Vitals: Temp Pulse Resp BP Pulse Ox 98.3 F 106 16 98/63 96 10/04/17 10:35 10/04/17 10:35 10/04/17 10:35 10/04/17 10:35 10/04/17 10:35 Exam: Gen: NAD, AAOx3, MMM CVS: tachycardic, +S1/S2, irregularly irregular rhythm Lungs: tight/poor air entry throughout. Course rales diffusely. No rhonchi Abd: soft, NT/ND Ext: no edema Internal Medicine: Result - Labs CBC & Chem 7: 10/04/17 01:57 10/04/17 01:19 Labs: Cardiac Enzymes 10/04/17 Range/Units 07:52 Troponin I < 0.03 (< 0.04) ng/mL - Impressions Impressions Chest X-Ray 10/04/17 23:52 IMPRESSION: Patchy left basilar opacity suspicious for aspiration or pneumonia. Background features of emphysema with smoking-related airway inflammation and obstructive small airways disease. D/ / Arben Winkler / Arben Winkler Interpreting Provider: Arben Winkler Consult Discharge Plan - Plan Referrals: Phu Hensley DO [Primary Care Provider] -
[2017-10-04] MEDS ORDERED: Albuterol 2.5 MG/3 ML NEBULIZER IH PRN (12:37)
[2017-10-04] MEDS ORDERED: *HR* LORazepam 1 MG TABLET PO PRN (12:37)
[2017-10-04] MEDS ORDERED: Nitroglycerin 0.4 MG TAB.SUBL SL PRN (12:37)
--- NOTE | 2017-10-04 12:47 | Electrocardiograph Report ---
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
[2017-10-04] MEDS: Acetaminophen/Butalbital/CaffeineTABLET PO PRN (13:27)
[2017-10-04] MEDS: predniSONE 20 MG TABLET PO SCH (13:28)
[2017-10-04] MEDS: Diltiazem CD (24hr) 180 MG CAPSULE PO SCH (13:28)
[2017-10-04] MEDS: *HR* Metoprolol 5 MG/5 ML VIAL IVP PRN (14:22)
[2017-10-04] MEDS: Budesonide/Formoterol 80/4.5 MDI IH SCH (21:07)
[2017-10-05] MEDS: Ipratropium/Albuterol Neb 3 ML IH SCH ×2 (03:40→10:46)
[2017-10-05] MEDS: Piperacillin/Tazobactam 3.375 GM in 0.9 % Sodium Chloride Mini Bag 100 ML IVPB SCH ×3 (04:07→20:56)
[2017-10-05] MEDS: 0.9 % Sodium Chloride 1,000 ML IVC SCH ×3 (05:13→20:58)
[2017-10-05 05:50] LABS: BUN/Creatinine Ratio 20 (6-26); Blood Urea Nitrogen 11 mg/dL (8-23); Calcium 8.3 mg/dL (8.6-10.3); Carbon Dioxide 30 mEq/L (23-29); Chloride 106 mEq/L (98-107); Glucose 106 mg/dL (70-105); Magnesium 1.9 mg/dL (1.6-2.6); Osmolality,Calculated 290 (280-300); Potassium 3.2 mEq/L (3.5-5.1); Sodium 140 mEq/L (136-145); eGFR For African Americans > 60 (> 60); eGFR For Non-African Americans > 60 (> 60)
[2017-10-05] MEDS: Acetaminophen/Butalbital/CaffeineTABLET PO PRN (06:27)
[2017-10-05 07:01] LABS: Basophils % 0.2 %; Eosinophils # 0.1 K/mcL (0.0-0.6); Eosinophils % 0.4 %; Hematocrit 29.3 % (35.3-44.9); Hemoglobin 9.2 g/dL (11.5-15.4); Immature Granulocytes % 0.7 % (0-4); Lymphocytes # 1.1 K/mcL (0.6-4.6); Lymphocytes % 9.6 %; Mean Corpuscular HGB Conc 31.4 g/dL (31.6-35.5); Mean Corpuscular Hemoglobin 31.8 pg (28.0-33.3); Mean Corpuscular Volume 101.4 fL (83.0-100.0); Mean Platelet Volume 11.1 fL (9.4-12.4); Monocytes # 0.7 K/mcL (0.0-1.3); Monocytes % 6.1 %; Neutrophils # 9.9 K/mcL (1.6-8.9); Platelet Count 139 K/mcL (140-400); Red Blood Count 2.89 M/mcL (3.82-4.97); Red Cell Distribution Width 14.6 % (11.5-14.5)
[2017-10-05] MEDS ORDERED: Tiotropium 18 MCG inhalation IH SCH (09:00)
[2017-10-05] MEDS: Magnesium Oxide 400 MG TABLET PO SCH (10:14)
[2017-10-05] MEDS: Aspirin Enteric Coated 81 MG Tablet PO SCH (10:14)
[2017-10-05] MEDS: Diltiazem CD (24hr) 180 MG CAPSULE PO SCH (10:15)
[2017-10-05] MEDS: predniSONE 20 MG TABLET PO SCH (10:15)
[2017-10-05] MEDS: BuPROPion SR (12 HR) 150 MG TABLET PO SCH (10:15)
[2017-10-05] MEDS: (Roflumilast [Daliresp] 500 MCG) PO SCH (10:16)
[2017-10-05] MEDS: Budesonide/Formoterol 80/4.5 MDI IH SCH ×2 (10:45→21:30)
[2017-10-05] MEDS: *HR* Metoprolol 5 MG/5 ML VIAL IVP PRN (11:20)
--- NOTE | 2017-10-05 13:16 | Internal Med Progress Note ---
Date of Encounter: 10/05/17 Time of Encounter: 13:11 - Assessment and plan (1) Acute and chronic respiratory failure ([id number]) Current Visit: Yes Status: Acute Assessment and plan: Secondary to pneumonia with COPD exacerbation Patient oxygen was disconnected earlier and she had more dyspnea, still dyspneic today - Treating for HCAP - continue Vancomycin/Zosyn - Start Solu Medrol and discontinue Prednisone PO. Airway still tight with poor to fair air exchange. - Change Duo Neb to Xopenex to avoid further tachycardia. -add Levaquin to cover atypical pneumonia , QTc on EKG yesterday was 375. - Aspiration precautions - Start patient on Bipap for respiratory support. Qualifiers: Respiratory failure complication: hypoxia Qualified Code(s): J96.21 - Acute and chronic respiratory failure with hypoxia (2) Sepsis Current Visit: Yes Status: Acute Assessment and plan: Patient meets sepsis criteria on admission with leukocytosis, tachycardia, tachypnea. Afebrile.secondary to pneumonia. Source is pneumonia Continue vancomycin/zosyn. Follow-up blood cultures, urine antigents. Add Levaquin Qualifiers: Sepsis type: sepsis due to unspecified organism Qualified Code(s): A41.9 - Sepsis, unspecified organism (3) HCAP (healthcare-associated pneumonia) Current Visit: Yes Status: Acute Assessment and plan: Continue vancomycin and Zosyn. Duo Nebs Supplemental O2 titrate as needed. Follow-up S pneumonia and Legionella antigens Follow-up blood cultures. Blood cultures were not collected in the ED and the patient had already received antibiotics. Speech therapy consult as patient aspiration risk and CT chest findings noted possible aspiration. - Aspiration precautions. Barium swallow did not show any aspiration but she is still an at-risk patient. (4) Atrial fibrillation with RVR Current Visit: Yes Status: Acute Assessment and plan: Likely triggered by her infection. Continue to Gently hydrate, normal saline at 100 ml/hr. Resuming home medications: Cardizem PO, Metoprolol. Stop Cardizem drip. No anticoagulation due to history of GI bleed. (5) Chest pain Current Visit: Yes Status: Acute Assessment and plan: Likely from A. fib and pneumonia. Troponin negative Continue Cycle cardiac enzymes. CTA chest negative for pulmonary embolism, negative for aortic aneurysm Qualifiers: Chest pain type: unspecified Qualified Code(s): R07.9 - Chest pain, unspecified (6) Hypertension Current Visit: No Status: Chronic Assessment and plan: Continue home meds Metoprolol PO Cardizem PO - holding for now because of hypotension Was hypotensive on Cardizem drip and so currently being held. Manual BP checks only Qualifiers: Hypertension type: essential hypertension Qualified Code(s): I10 - Essential (primary) hypertension (7) H/O cerebral aneurysm repair Current Visit: No Status: Chronic Assessment and plan: Avoid anticoagulation (8) DVT prophylaxis Current Visit: No Status: Resolved Assessment and plan: SCD - Time Spent With Patient Total time spent is greater than 50% in coordination of care (as documented) at patient's floor/unit and/or counseling patient: - Subjective Interval history: Patient had O2 from nasal cannula to the wall was accidentally pulled out this morning. Patient heart rate then increased to 160s during that time. She now states she is feeling a little better but still having trouble breathing. Denies fevers/chills. - Constitutional Vitals: Temp Pulse Resp BP Pulse Ox 98.4 F 105 15 105/61 96 10/05/17 11:53 10/05/17 11:53 10/05/17 11:53 10/05/17 11:53 10/05/17 11:53 - Head Head exam: Present: atraumatic, normocephalic - Eye Eye exam: Present: PERRL, conjuntiva pink, sclera anicteric Pupils: Present: PERRL - Neck Neck exam general surgery: Present: supple, trachea midline. Absent: lymphadenopathy - Respiratory Respiratory exam: Present: wheezes. Absent: accessory muscle use, rales, rhonchi - Cardiovascular Cardiovascular exam: Present: irregular rhythm, +S1, +S2, tachycardia. Absent: diastolic murmur, gallop, rubs, systolic murmur - GI/Abdominal GI/Abdominal exam: Present: normal bowel sounds, soft, no peritoneal signs. Absent: distended, tenderness - Extremities Exam Extremities exam: Present: warm, radial pulses palpable and symmetrical. Absent : calf tenderness, cyanotic, pedal edema - Neurological Exam Neurological exam: Present: CN II-XII intact, oriented X3, no focal deficits. Absent: pronater drift, facial droop, speech deficit - Skin Skin exam: Present: dry, intact Internal Medicine: Result - Labs CBC & Chem 7: 05/09/18 06:12 10/05/17 05:10 Labs: Short CBC 10/05/17 Range/Units 06:12 WBC 11.9 H (4.3-11.1) K/mcL Hgb 9.2 L D (11.5-15.4) g/dL Hct 29.3 L (35.3-44.9) % Plt Count 139 L (140-400) K/mcL Neutrophils # 9.9 H (1.6-8.9) K/mcL BMP 10/05/17 05:10 Sodium 140 Potassium 3.2 L Chloride 106 Carbon Dioxide 30 H BUN 11 Creatinine 0.55 L Glucose 106 H Calcium 8.3 L Cardiac Enzymes 10/04/17 Range/Units 13:51 Troponin I < 0.03 (< 0.04) ng/mL - Impressions Impressions Videofluoroscopic Swallow 10/04/17 13:41 IMPRESSION: Oral phase of swallowing is within normal limits. Transient laryngeal penetration only with sips of thin barium from a straw. No evidence of aspiration. Please see separate Speech Pathology report for full discussion of findings and recommendations. D/ / 10/04/2017 15:46:39 Valentin Pena MD / earnold Interpreting Provider: Valentin Pena MD - VTE Documentation of Mechanical Device: Intermittent pneumatic compression device Consult Discharge Plan - Plan Referrals: Phu Hensley, DO [Primary Care Provider] -
[2017-10-05] MEDS: methylPREDNISolone 125 MG/2 ML VIAL IVP SCH (15:33)
[2017-10-05] MEDS: Levalbuterol Neb 1.25 MG/3 ML IH SCH ×3 (16:07→21:30)
[2017-10-05] MEDS: *HR* Heparin 5,000 UNIT/ML VIAL SQ SCH (19:35)
[2017-10-05] MEDS: *HR* LORazepam 0.5 MG TABLET PO PRN (21:59)
[2017-10-06] MEDS: methylPREDNISolone 125 MG/2 ML VIAL IVP SCH ×4 (00:18→23:48)
[2017-10-06] MEDS: Piperacillin/Tazobactam 3.375 GM in 0.9 % Sodium Chloride Mini Bag 100 ML IVPB SCH ×2 (03:15→11:54)
[2017-10-06] MEDS: Levalbuterol Neb 1.25 MG/3 ML IH SCH ×4 (03:27→22:48)
[2017-10-06 06:33] LABS: Basophils % 0.1 %; Hematocrit 30.7 % (35.3-44.9); Hemoglobin 9.2 g/dL (11.5-15.4); Immature Granulocytes % 1.9 % (0-4); Immature Platelets 5.7 % (1.1-6.1); Lymphocytes # 0.5 K/mcL (0.6-4.6); Lymphocytes % 6.9 %; Mean Corpuscular Hemoglobin 30.8 pg (28.0-33.3); Mean Corpuscular Volume 102.7 fL (83.0-100.0); Mean Platelet Volume 10.9 fL (9.4-12.4); Monocytes # 0.3 K/mcL (0.0-1.3); Monocytes % 3.7 %; Neutrophils # 6.4 K/mcL (1.6-8.9); Platelet Count 174 K/mcL (140-400); Red Blood Count 2.99 M/mcL (3.82-4.97); Red Cell Distribution Width 15.1 % (11.5-14.5); Segmented Neutrophils % 87.4 %
[2017-10-06 06:44] LABS: BUN/Creatinine Ratio 22 (6-26); Blood Urea Nitrogen 13 mg/dL (8-23); Calcium 8.4 mg/dL (8.6-10.3); Carbon Dioxide 27 mEq/L (23-29); Chloride 109 mEq/L (98-107); Glucose 149 mg/dL (70-105); Osmolality,Calculated 299 (280-300); Potassium 4.7 mEq/L (3.5-5.1); Sodium 143 mEq/L (136-145); eGFR For African Americans > 60 (> 60); eGFR For Non-African Americans > 60 (> 60)
[2017-10-06] MEDS: Aspirin Enteric Coated 81 MG Tablet PO SCH (09:43)
[2017-10-06] MEDS: BuPROPion SR (12 HR) 150 MG TABLET PO SCH (09:43)
[2017-10-06] MEDS: Magnesium Oxide 400 MG TABLET PO SCH (09:43)
[2017-10-06] MEDS: 0.9 % Sodium Chloride 1,000 ML IVC SCH (09:43)
[2017-10-06] MEDS: (Roflumilast [Daliresp] 500 MCG) PO SCH (09:44)
[2017-10-06] MEDS: Budesonide/Formoterol 80/4.5 MDI IH SCH ×2 (11:03→22:48)
[2017-10-06] MEDS: Acetaminophen 325 MG TABLET PO PRN (11:53)
[2017-10-06] MEDS: Diltiazem CD (24hr) 240 MG CAPSULE PO SCH (11:53)
[2017-10-06] MEDS: levoFLOXacin 750 MG TABLET PO SCH (11:53)
--- NOTE | 2017-10-06 12:22 | Internal Med Progress Note ---
Date of Encounter: 10/06/17 Time of Encounter: 12:19 - Assessment and plan (1) Acute and chronic respiratory failure ([id number]) Current Visit: Yes Status: Acute Assessment and plan: Secondary to pneumonia with COPD exacerbation - Treating for HCAP - Transistion from vanc/zosyn to Levaquin today - Taper Solu medrol to 40 mg Q8H now - Continue Xopenex (due to tachycardia) add Spiriva today - Aspiration precautions - Continue bipap as needed Clinically feels better. anticipate discharge in 1-2 days if she continues to improve. Qualifiers: Respiratory failure complication: hypoxia Qualified Code(s): J96.21 - Acute and chronic respiratory failure with hypoxia (2) Sepsis Current Visit: Yes Status: Acute Assessment and plan: Patient meets sepsis criteria on admission with leukocytosis, tachycardia, tachypnea. Afebrile.secondary to pneumonia. Source is pneumonia Leukocytosis and tachycardia resolved. Tachycpneic on occasion now but likely from COPD. De escalate to Levaquin Follow-up cultures. Qualifiers: Sepsis type: sepsis due to unspecified organism Qualified Code(s): A41.9 - Sepsis, unspecified organism (3) HCAP (healthcare-associated pneumonia) Current Visit: Yes Status: Acute Assessment and plan: As above (4) Atrial fibrillation with RVR Current Visit: Yes Status: Acute Assessment and plan: Tachycardia resolved after switching to Xopenex and using bipap. Likely RVR from respiratory distress. Continue Toprol BP much better today and we will add back her PO Cardizem but at a lower dose. Tomorrow if remains normotensive, will resume Cardizem 24 hr at 360 mg daily (5) Chest pain Current Visit: Yes Status: Acute Assessment and plan: Likely from A. fib and pneumonia. Troponin negative Continue Cycle cardiac enzymes. CTA chest negative for pulmonary embolism, negative for aortic aneurysm Qualifiers: Chest pain type: unspecified Qualified Code(s): R07.9 - Chest pain, unspecified (6) Hypertension Current Visit: No Status: Chronic Assessment and plan: Continue home meds Metoprolol PO Was hypotensive on Cardizem drip and so currently being held. Manual BP checks only Re-add Cardizem PO since BP improved and patient would benefit from this for rate control. Qualifiers: Hypertension type: essential hypertension Qualified Code(s): I10 - Essential (primary) hypertension (7) H/O cerebral aneurysm repair Current Visit: No Status: Chronic Assessment and plan: Avoid anticoagulation (8) DVT prophylaxis Current Visit: No Status: Resolved Assessment and plan: SCD - Time Spent With Patient Total time spent is greater than 50% in coordination of care (as documented) at patient's floor/unit and/or counseling patient: - Subjective Interval history: 10/05: Patient had O2 from nasal cannula to the wall was accidentally pulled out this morning. Patient heart rate then increased to 160s during that time. She now states she is feeling a little better but still having trouble breathing. Denies fevers/chills. 10/06: Has been using bipap prn and HR has improved to 80s-90s. Denies CP. SOB significantly improved though she still has resp distress. - Constitutional Vitals: Temp Pulse Resp BP Pulse Ox 98.1 F 83 18 132/78 96 10/06/17 11:00 10/06/17 11:00 10/06/17 11:03 10/06/17 11:00 10/06/17 11:03 - Head Head exam: Present: atraumatic, normocephalic - Eye Eye exam: Present: PERRL, conjuntiva pink, sclera anicteric Pupils: Present: PERRL - Neck Neck exam general surgery: Present: supple, trachea midline. Absent: lymphadenopathy - Respiratory Respiratory exam: Present: decreased breath sounds, wheezes. Absent: accessory muscle use, rales, rhonchi Additional comments: Only slight improvement of air exchange since yesterday. - Cardiovascular Cardiovascular exam: Present: RRR, +S1, +S2. Absent: diastolic murmur, gallop, rubs, systolic murmur - GI/Abdominal GI/Abdominal exam: Present: normal bowel sounds, soft, no peritoneal signs. Absent: distended, tenderness - Extremities Exam Extremities exam: Present: warm, radial pulses palpable and symmetrical. Absent : calf tenderness, cyanotic, pedal edema - Neurological Exam Neurological exam: Present: CN II-XII intact, oriented X3, no focal deficits. Absent: pronater drift, facial droop, speech deficit - Skin Skin exam: Present: dry, intact Internal Medicine: Result - Labs CBC & Chem 7: 10/06/17 05:22 10/06/17 05:22 Labs: Short CBC 05/10/18 Range/Units 05:22 WBC 7.4 (4.3-11.1) K/mcL Hgb 9.2 L (11.5-15.4) g/dL Hct 30.7 L (35.3-44.9) % Plt Count 174 (140-400) K/mcL Neutrophils # 6.4 (1.6-8.9) K/mcL BMP 10/06/17 05:22 Sodium 143 Potassium 4.7 Chloride 109 H Carbon Dioxide 27 BUN 13 Creatinine 0.58 L Glucose 149 H Calcium 8.4 L - VTE Documentation of Mechanical Device: Intermittent pneumatic compression device Consult Discharge Plan - Plan Referrals: Phu Hensley DO [Primary Care Provider] -
[2017-10-06] MEDS ORDERED: Aminoglycoside Consult 1 EACH MC ONE (14:33)
[2017-10-06] MEDS: Acetaminophen/Butalbital/CaffeineTABLET PO PRN (17:07)
[2017-10-06] MEDS: *HR* LORazepam 0.5 MG TABLET PO PRN (20:37)
[2017-10-07 03:34] LABS: Hematocrit 30.4 % (35.3-44.9); Mean Corpuscular HGB Conc 29.6 g/dL (31.6-35.5); Mean Corpuscular Hemoglobin 30.7 pg (28.0-33.3); Mean Corpuscular Volume 103.8 fL (83.0-100.0); Platelet Count 190 K/mcL (140-400); Red Blood Count 2.93 M/mcL (3.82-4.97)
[2017-10-07 03:35] LABS: Immature Granulocytes % 1.9 % (0-4); Lymphocytes # 0.5 K/mcL (0.6-4.6); Lymphocytes % 6.3 %; Mean Platelet Volume 10.8 fL (9.4-12.4); Monocytes # 0.3 K/mcL (0.0-1.3); Neutrophils # 7.2 K/mcL (1.6-8.9); Segmented Neutrophils % 87.8 %
[2017-10-07 03:49] LABS: BUN/Creatinine Ratio 27 (6-26); Blood Urea Nitrogen 19 mg/dL (8-23); Calcium 8.9 mg/dL (8.6-10.3); Carbon Dioxide 30 mEq/L (23-29); Chloride 109 mEq/L (98-107); Glucose 164 mg/dL (70-105); Osmolality,Calculated 298 (280-300); Potassium 4.9 mEq/L (3.5-5.1); Sodium 141 mEq/L (136-145); eGFR For African Americans > 60 (> 60); eGFR For Non-African Americans > 60 (> 60)
[2017-10-07] MEDS: Levalbuterol Neb 1.25 MG/3 ML IH SCH ×2 (04:20→10:38)
[2017-10-07] MEDS: BuPROPion SR (12 HR) 150 MG TABLET PO SCH (09:20)
[2017-10-07] MEDS: (Roflumilast [Daliresp] 500 MCG) PO SCH (09:20)
[2017-10-07] MEDS: Diltiazem CD (24hr) 240 MG CAPSULE PO SCH (09:20)
[2017-10-07] MEDS: methylPREDNISolone 125 MG/2 ML VIAL IVP SCH (09:21)
[2017-10-07] MEDS: Aspirin Enteric Coated 81 MG Tablet PO SCH (09:21)
[2017-10-07] MEDS: levoFLOXacin 750 MG TABLET PO SCH (09:21)
[2017-10-07] MEDS: Magnesium Oxide 400 MG TABLET PO SCH (09:26)
[2017-10-07] MEDS: *HR* LORazepam 0.5 MG TABLET PO PRN (09:57)
[2017-10-07] MEDS ORDERED: Tiotropium 18 MCG inhalation IH SCH (10:00)
[2017-10-07] MEDS: Budesonide/Formoterol 80/4.5 MDI IH SCH (10:39)
[2017-10-07] MEDS ORDERED: Cyanocobalamin (B-12) 1,000 MCG/ML VIAL SQ ONE (10:57)
[2017-10-07] MEDS ORDERED: Folic Acid 1 MG in D5% in Water 50 ML IVPB STA (10:58)
--- NOTE | 2017-10-07 11:37 | Discharge Summary ---
- NOTES TO OUTPATIENT PROVIDER Notes to Outpatient Provider: - Follow-up CPAP use at home. - Follow-up heart rate. - CBC in one week; had increasing MCV, likely respiratory distress related. Orders not resulted at time of discharge: Pending orders 10/08/17 04:00 BMP [Basic Metabolic Panel] AM 0400 Complete Blood Count [HEME] AM 0400 Date of Encounter: 10/07/17 Time of Encounter: 11:32 - Discharge Diagnosis (1) Acute and chronic respiratory failure ([id number]) Priority: Primary Status: Resolved Qualifiers: Respiratory failure complication: hypoxia Qualified Code(s): J96.21 - Acute and chronic respiratory failure with hypoxia (2) Sepsis Priority: Secondary Status: Acute Qualifiers: Sepsis type: sepsis due to unspecified organism Qualified Code(s): A41.9 - Sepsis, unspecified organism (3) HCAP (healthcare-associated pneumonia) Priority: Secondary Status: Acute (4) Atrial fibrillation with RVR Priority: Secondary Status: Acute (5) Chest pain Priority: Secondary Status: Acute Qualifiers: Chest pain type: unspecified Qualified Code(s): R07.9 - Chest pain, unspecified (6) Hypertension Priority: Secondary Status: Chronic Qualifiers: Hypertension type: essential hypertension Qualified Code(s): I10 - Essential (primary) hypertension (7) H/O cerebral aneurysm repair Priority: Secondary Status: Chronic (8) DVT prophylaxis Priority: Secondary Status: Resolved Hospital course: Ms. Gaines is a 72 year old female with history of COPD on 3L O2 at home, asthma, atrial fibrillation not on anticoagulation, HTN, H/O GIB, cerebral aneurysms s/p aneurysm clips presented for shortness of breath. Patient lives alone and her son and daughter in law stay next door. She has not been feeling her self for 2 days or so. She is lethargic and short of breath. Positive for a productive yellow cough. Today she was cooking when she suddenly felt chest pain with inspiration radiating to her back. Her oxygenation were checked at home and she was in the 70s. She called her [id number] and she was brought to the hospital for again she was satting in the 80s on 3 L nasal cannula which she is on chronically. Workup in the ED showed pneumonia. Laboratory workup showed leukocytosis. Normal lactic acid. EKG showed A. fib. Initially her rate was in the low 100s however when I went and evaluated the patient she is up to the 160s. She had received 1-2 L of IV fluids in the ED and 5 mg of IV metoprolol. The patient was given IV Levaquin, vancomycin, and Zosyn in the ED to cover for healthcare associated pneumonia as she was recently hospitalized. Patient met sepsis criteria and had atrial fibrillation with RVR, triggered by infection and respiratory distress. She had IV steroids started and bipap therapy. After continuing these therapies, patient eventually was not septic. Blood cultures were negative to date. Her breathing improved to baseline. She was de escalated antibiotics to Levaquin. Patient was discharged home in stable condition with Levaquin and Prednisone taper. - Time Spent with Patient Total time spent providing and/or coordinating discharge services: - Discharge Medications Prescriptions: levoFLOXacin [Levaquin] 750 mg PO DAILY #7 tablet predniSONE [PredniSONE] See Taper PO DAILY #9 tablet Home Medications: Albuterol Sulfate 2.5 mg IH Q4HR PRN 10/29/16 [History] Amitriptyline [Elavil] 25 mg PO DAILY 10/29/16 [History] BuPROPion SR (12 HR) [Wellbutrin SR] 150 mg PO DAILY 10/29/16 [History] Furosemide [Lasix] 40 mg PO DAILY 10/29/16 [History] LORazepam [Ativan] 1 mg PO BID PRN 10/29/16 [History] Magnesium Oxide [Magnesium] 400 mg PO DAILY 10/29/16 [History] Metoprolol [Lopressor] 50 mg PO BID 10/29/16 [History] Nitroglycerin [Nitrostat] 0.4 mg SL Q5M PRN 10/29/16 [History] Pantoprazole Sodium [Protonix] 40 mg PO DAILY 10/29/16 [History] Roflumilast [Daliresp] 500 mcg PO DAILY 10/29/16 [History] Sertraline [Zoloft] 100 mg PO DAILY 10/29/16 [History] Acetaminophen/Butalbital/Caffe [Fioricet] 1 each PO Q6HR PRN 08/14/17 [History] Cyclobenzaprine [Flexeril] 10 mg PO TID PRN 08/14/17 [History] Diltiazem HCl [Cardizem LA] 360 mg PO QDPC #30 tab.er.24h 08/18/17 [Rx] Aspirin [Lo-Dose Aspirin EC] 81 mg PO DAILY 10/04/17 [History] Fluticasone/Salmeterol [Advair 250-50 Diskus] 1 puff IH BID 10/04/17 [History] Pravastatin Sodium [Pravachol] 20 mg PO QPM 10/04/17 [History] Tiotropium [Spiriva] 18 mcg IH DAILY 10/04/17 [History] levoFLOXacin [Levaquin] 750 mg PO DAILY #7 tablet 10/07/17 [Rx] predniSONE [PredniSONE] See Taper PO DAILY #9 tablet 10/07/17 [Rx] Allergies/Adverse Reactions: 3 Allergy/AdvReac Type Severity Reaction Status Date / Time No Known Allergies Allergy Verified 10/03/17 23:45 Date of admission: 10/04/17 05:09 Primary care physician: Phu Hensley DO Consults: 10/04/17 12:42 Consult to Speech Therapy [CONS] Routine Comment: Evaluate, develop and implement POC Reason for Consult: Aspiration risk Call Completed: No 10/05/17 16:11 Consult to Physical Therapy [CONS] Routine Comment: Evaluate, develop and implement POC Reason for Consult: weakness, prevent deconditioning, safe d/c planning Does patient have active BEDREST order?: No Is patient medically & hemodynamically stable?: Yes Patient assessed for mobility or mobilized this visit?: No 10/05/17 16:12 Consult to Occupational Therapy [CONS] Routine Comment: Evaluate, develop and implement POC Reason for Consult: weakness, prevent deconditioning, safe d/c planning Does patient have active BEDREST order?: No Is patient medically & hemodynamically stable?: Yes Patient assessed for mobility or mobilized this visit?: No Discharging clinician: Sofya Chen - Constitutional Vitals: Temp Pulse Resp BP Pulse Ox 98.2 F 91 16 124/77 90 10/07/17 07:41 10/07/17 07:41 10/07/17 07:41 10/07/17 07:41 10/07/17 07:41 Exam: - Head Head exam: Present: atraumatic, normocephalic - Eye Eye exam: Present: PERRL, conjuntiva pink, sclera anicteric Pupils: Present: PERRL - Neck Neck exam general surgery: Present: supple, trachea midline. Absent: lymphadenopathy - Respiratory Respiratory exam: Present: decreased breath sounds, wheezes. Absent: accessory muscle use, rales, rhonchi Additional comments: Only slight improvement of air exchange since yesterday. - Cardiovascular Cardiovascular exam: Present: RRR, +S1, +S2. Absent: diastolic murmur, gallop, rubs, systolic murmur - GI/Abdominal GI/Abdominal exam: Present: normal bowel sounds, soft, no peritoneal signs. Absent: distended, tenderness - Extremities Exam Extremities exam: Present: warm, radial pulses palpable and symmetrical. Absent : calf tenderness, cyanotic, pedal edema - Neurological Exam Neurological exam: Present: CN II-XII intact, oriented X3, no focal deficits. Absent: pronater drift, facial droop, speech deficit - Skin Skin exam: Present: dry, intact - Patient Status Disposition: Home, Self-Care Condition: Serious Functional capacity at discharge: independent ambulation Overall status at discharge: patient is progressing back to baseline - Discharge Instructions Follow Up With: Beronica Mack, PERFORMANCE CONSULTANT [Advanced Practice Nurse] - 10/17/17 10:30 am - Diet and Activity Activity: increase activity as tolerated Diet: advance to your usual diet - VTE Documentation of Mechanical Device: Intermittent pneumatic compression device
[2017-10-07 11:54] VITALS: BP 127/74
--- NOTE | 2017-10-07 12:51 | Physician Discharge Referral ---
Home Health/Hosp Referral Info Transfer to: Home Health Provider in Charge Post Discharge: PCP - Diagnosis (1) Acute and chronic respiratory failure ([id number]) Priority: Primary Status: Resolved (2) Sepsis Priority: Secondary Status: Acute (3) HCAP (healthcare-associated pneumonia) Priority: Secondary Status: Acute (4) Atrial fibrillation with RVR Priority: Secondary Status: Acute (5) Chest pain Priority: Secondary Status: Acute (6) Hypertension Priority: Secondary Status: Chronic (7) H/O cerebral aneurysm repair Priority: Secondary Status: Chronic (8) DVT prophylaxis Priority: Secondary Status: Resolved - Respiratory Orders Oxygen / L per min Smoking Cessation: Smoking cessation has been advised. For more information, call the [employer] Quit Line at 8-456-GRTI-NOW. - Diet/Nutrition Diet/Nutrition Orders: Cardiac - Activity Activity: List: As per physical therapy - Services Needed Following services are medically necessary services: Nursing, Physical Therapy, Occupational Therapy - Transfer Medications Prescriptions: levoFLOXacin [Levaquin] 750 mg PO DAILY #7 tablet predniSONE [PredniSONE] See Taper PO DAILY #9 tablet Home Medications: Albuterol Sulfate 2.5 mg IH Q4HR PRN 10/29/16 [History] Amitriptyline [Elavil] 25 mg PO DAILY 10/29/16 [History] BuPROPion SR (12 HR) [Wellbutrin SR] 150 mg PO DAILY 10/29/16 [History] Furosemide [Lasix] 40 mg PO DAILY 10/29/16 [History] LORazepam [Ativan] 1 mg PO BID PRN 10/29/16 [History] Magnesium Oxide [Magnesium] 400 mg PO DAILY 10/29/16 [History] Metoprolol [Lopressor] 50 mg PO BID 10/29/16 [History] Nitroglycerin [Nitrostat] 0.4 mg SL Q5M PRN 10/29/16 [History] Pantoprazole Sodium [Protonix] 40 mg PO DAILY 10/29/16 [History] Roflumilast [Daliresp] 500 mcg PO DAILY 10/29/16 [History] Sertraline [Zoloft] 100 mg PO DAILY 10/29/16 [History] Acetaminophen/Butalbital/Caffe [Fioricet] 1 each PO Q6HR PRN 08/14/17 [History] Cyclobenzaprine [Flexeril] 10 mg PO TID PRN 08/14/17 [History] Diltiazem HCl [Cardizem LA] 360 mg PO QDPC #30 tab.er.24h 08/18/17 [Rx] Aspirin [Lo-Dose Aspirin EC] 81 mg PO DAILY 10/04/17 [History] Fluticasone/Salmeterol [Advair 250-50 Diskus] 1 puff IH BID 10/04/17 [History] Pravastatin Sodium [Pravachol] 20 mg PO QPM 10/04/17 [History] Tiotropium [Spiriva] 18 mcg IH DAILY 10/04/17 [History] levoFLOXacin [Levaquin] 750 mg PO DAILY #7 tablet 10/07/17 [Rx] predniSONE [PredniSONE] See Taper PO DAILY #9 tablet 10/07/17 [Rx] Allergies/Adverse Reactions: 3 Allergy/AdvReac Type Severity Reaction Status Date / Time No Known Allergies Allergy Verified 10/03/17 23:45 Certification: Further, I certify that my clinical findings support that this patient is homebound (i.e. absences from home require considerable and taxing effort and are for medical reasons or [facility] or infrequently or short duration when for other reasons) because: Homebound Reason: Patient requires assistance of a person or device to safely leave home Attestation: My signature below is to certify that this patient is under my care and that I, or nurse practitioner, or a physician's junior administrative assistant working with me, has a face-to -face encounter with this patient.
[2017-10-08] MEDS ORDERED: Diltiazem CD (24hr) 180 MG CAPSULE PO SCH (09:00)
== END 2017-10-07 14:34 | disposition home or self-care (01) | DRG 871 ==
LOC: EMEROO 23:16 → 3ANU 10-04 05:09 → SUATTDRO 10-04 05:09 → 3ANU 10-04 05:30
PROVIDERS: ADMIT Internal Medicine; ATTEND Student in an Organized Health Care Education/Training Program

== ENCOUNTER 2018-03-07 18:43 | Observation (INO) ==
[2018-03-07] MEDS ORDERED: Ipratropium/Albuterol Neb 3 ML IH STA (20:10)
[2018-03-07] MEDS ORDERED: methylPREDNISolone 125 MG/2 ML VIAL IVP STA (20:10)
[2018-03-07] MEDS ORDERED: Aspirin 325 MG TABLET PO STA (20:10)
--- NOTE | 2018-03-07 20:22 | Emergency Department Note ---
Disposition Clinical Impression: COPD exacerbation Disposition: Admitted As Inpatient Condition: Good General Adult HPI - General Chief complaint: ED Chest Pain Stated complaint: CP Time Seen by Provider: 03/07/18 19:55 Source: family Limitations: no limitations Nursing Notes Reviewed: Yes Vital Signs Reviewed: Yes - History of Present Illness HPI Narrative: Patient with history of COPD and atrial fibrillation not on anticoagulation but on 3 L of oxygen at home. Presents today for evaluation of chest pressure. Patient states symptoms started last night and continued into today with associated shortness of breath. She did take one breathing treatment earlier in the day which did somewhat improve her symptoms. Patient states worse with exertion. The patient does not have any history of previous ND. She states that her symptoms today she has experienced in the past but has been quite a while. The patient does have significant wheezing bilaterally. Decreased breath sounds at the bases. Patient does have what appears to be a significant COPD exacerbation. She will receive breathing treatments and steroids reevaluation of her chest pain. Aspirin has been provided in the emergency department. If she continues to have chest pain after breathing treatment she will receive nitroglycerin. Pain Scale: 8 - Related Data Home Medications Medication Instructions Recorded Confirmed Albuterol Sulfate 2.5 mg IH Q4HR PRN 10/29/16 03/07/18 Amitriptyline [Elavil] 25 mg PO DAILY 10/29/16 03/07/18 BuPROPion SR (12 HR) [Wellbutrin 150 mg PO DAILY 10/29/16 03/07/18 SR] Furosemide [Lasix] 40 mg PO DAILY 10/29/16 03/07/18 LORazepam [Ativan] 1 mg PO BID PRN 10/29/16 03/07/18 Magnesium Oxide [Magnesium] 400 mg PO DAILY 10/29/16 03/07/18 Metoprolol [Lopressor] 50 mg PO BID 10/29/16 03/07/18 Nitroglycerin [Nitrostat] 0.4 mg SL Q5M PRN 10/29/16 03/07/18 Pantoprazole Sodium [Protonix] 40 mg PO DAILY 10/29/16 03/07/18 Roflumilast [Daliresp] 500 mcg PO DAILY 10/29/16 03/07/18 Sertraline [Zoloft] 100 mg PO DAILY 10/29/16 03/07/18 Acetaminophen/Butalbital/Caffe 1 each PO Q6HR PRN 08/14/17 03/07/18 [Fioricet] Cyclobenzaprine [Flexeril] 10 mg PO TID PRN 08/14/17 03/07/18 Aspirin [Lo-Dose Aspirin EC] 81 mg PO DAILY 10/04/17 03/07/18 Fluticasone/Salmeterol [Advair 1 puff IH BID 10/04/17 03/07/18 250-50 Diskus] Pravastatin Sodium [Pravachol] 20 mg PO QPM 10/04/17 03/07/18 Tiotropium [Spiriva] 18 mcg IH DAILY 10/04/17 03/07/18 Previous Rx's Medication Instructions Recorded Diltiazem HCl [Cardizem LA] 360 mg PO QDPC #30 tab.er.24h 08/18/17 Allergies Allergy/AdvReac Type Severity Reaction Status Date / Time No Known Allergies Allergy Verified 10/03/17 23:45 Review of Systems: As Per HPI Constitutional: Denies: fever, chills Cardiovascular: Reports: chest pain, dyspnea on exertion Respiratory: Reports: cough, dyspnea. 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 Cardiac: Irregular rate and rhythm Abdomen: soft, nontender, nondistended; no guarding, rebound, or tenderness to percussion Musculoskeletal: Calves symmetric, nontender Skin: No rash, normal skin tone Neuro: Alert and Oriented to person, place, and time; No focal deficit - General Limitations: no limitations General appearance: alert Course - Reevaluation(s) Reevaluation #1: Patient had resolution of symptoms after breathing treatments. Patient be admitted for COPD exacerbation. No evidence of pneumonia on x-ray. She does have an elevated white count but has not had cough or positive sputum production or fever. Vital Signs Temperature 98 F 03/07/18 18:58 Pulse Rate 108 03/07/18 18:58 Respiratory Rate 18 03/07/18 18:58 Blood Pressure 119/68 03/07/18 18:58 O2 Sat by Pulse Oximetry 92 03/07/18 18:58 Temperature 98 F 03/07/18 19:47 Pulse Rate 108 03/07/18 19:47 Respiratory Rate 28 03/07/18 20:52 Blood Pressure 119/68 03/07/18 19:47 O2 Sat by Pulse Oximetry 96 03/07/18 20:52 Oxygen Delivery Oxygen Delivery Nasal Cannula Medical Decision Making - Medical Records Medical records reviewed: Yes I reviewed the patient's medical records. - Lab Data Lab results reviewed: Yes I reviewed the patient's lab results. Result diagrams: 03/07/18 20:28 03/07/18 20:28 Lab Results 03/07/18 03/07/18 03/07/18 Range/Units 20:28 20:28 20:28 WBC 12.6 H (4.3-11.1) K/mcL RBC 4.01 (3.82-4.97) M/mcL Hgb 12.1 (11.5-15.4) g/dL Hct 39.6 (35.3-44.9) % MCV 98.8 (83.0-100.0) fL MCH 30.2 (28.0-33.3) pg MCHC 30.6 L (31.6-35.5) g/dL RDW 14.5 (11.5-14.5) % Plt Count 160 (140-400) K/mcL MPV 10.5 (9.4-12.4) fL Immature Gran % 0.4 (0-4) % Seg Neutrophils % 81.1 % Lymphocytes % 7.6 % Monocytes % 9.1 % Eosinophils % 1.6 % Basophils % 0.2 % Neutrophils # 10.2 H (1.6-8.9) K/mcL Lymphocytes # 1.0 (0.6-4.6) K/mcL Monocytes # 1.2 (0.0-1.3) K/mcL Eosinophils # 0.2 (0.0-0.6) K/mcL Basophils # 0.0 (0.0-0.2) K/mcL PT 11.3 (9.4-12.1) Seconds INR 1.0 APTT 30.6 (26.0-36.0) Seconds Sodium (136-145) mEq/L Potassium (3.5-5.1) mEq/L Chloride (98-107) mEq/L Carbon Dioxide (23-29) mEq/L BUN (8-23) mg/dL Creatinine (0.60-1.20) mg/dL Est GFR ( Amer) (> 60) Est GFR (Non-Af Amer) (> 60) BUN/Creatinine Ratio (6-26) Glucose (70-105) mg/dL Calculated Osmolality (280-300) Calcium (8.6-10.3) mg/dL Troponin I (< 0.04) ng/mL B-Natriuretic Peptide 53 (Less than 100) pg/mL 03/07/18 Range/Units 20:28 WBC (4.3-11.1) K/mcL RBC (3.82-4.97) M/mcL Hgb (11.5-15.4) g/dL Hct (35.3-44.9) % MCV (83.0-100.0) fL MCH (28.0-33.3) pg MCHC (31.6-35.5) g/dL RDW (11.5-14.5) % Plt Count (140-400) K/mcL MPV (9.4-12.4) fL Immature Gran % (0-4) % Seg Neutrophils % % Lymphocytes % % Monocytes % % Eosinophils % % Basophils % % Neutrophils # (1.6-8.9) K/mcL Lymphocytes # (0.6-4.6) K/mcL Monocytes # (0.0-1.3) K/mcL Eosinophils # (0.0-0.6) K/mcL Basophils # (0.0-0.2) K/mcL PT (9.4-12.1) Seconds INR APTT (26.0-36.0) Seconds Sodium 141 (136-145) mEq/L Potassium 3.5 (3.5-5.1) mEq/L Chloride 89 L (98-107) mEq/L Carbon Dioxide 39 H (23-29) mEq/L BUN 16 (8-23) mg/dL Creatinine 0.75 (0.60-1.20) mg/dL Est GFR ( Amer) > 60 (> 60) Est GFR (Non-Af Amer) > 60 (> 60) BUN/Creatinine Ratio 21 (6-26) Glucose 109 H (70-105) mg/dL Calculated Osmolality 294 (280-300) Calcium 9.4 (8.6-10.3) mg/dL Troponin I < 0.03 (< 0.04) ng/mL B-Natriuretic Peptide (Less than 100) pg/mL - Radiology Data Radiology results reviewed: Yes I reviewed the patient's radiology results. - EKG Data EKG #1 EKG attestation: Yes I reviewed and interpreted this EKG. EKG results narrative: EKG shows atrial fibrillation with heart rate of 102. QRS 93. QTC 440. Patient has missing skin ST elevations or depressions. Patient's EKG is unchanged from previous of 10/03/17.
[2018-03-07] MEDS ORDERED: 0.9 % Sodium Chloride 500 ML IVC ONE ×2 (20:26→22:29)
[2018-03-07 20:46] LABS: Basophils % 0.2 %; Eosinophils # 0.2 K/mcL (0.0-0.6); Eosinophils % 1.6 %; Hematocrit 39.6 % (35.3-44.9); Hemoglobin 12.1 g/dL (11.5-15.4); Immature Granulocytes % 0.4 % (0-4); Lymphocytes % 7.6 %; Mean Corpuscular HGB Conc 30.6 g/dL (31.6-35.5); Mean Corpuscular Hemoglobin 30.2 pg (28.0-33.3); Mean Corpuscular Volume 98.8 fL (83.0-100.0); Mean Platelet Volume 10.5 fL (9.4-12.4); Monocytes # 1.2 K/mcL (0.0-1.3); Monocytes % 9.1 %; Neutrophils # 10.2 K/mcL (1.6-8.9); Platelet Count 160 K/mcL (140-400); Red Blood Count 4.01 M/mcL (3.82-4.97); Red Cell Distribution Width 14.5 % (11.5-14.5); Segmented Neutrophils % 81.1 %
[2018-03-07 20:51] LABS: Prothrombin Time 11.3 Seconds (9.4-12.1)
[2018-03-07 20:54] LABS: Activated Partial Thrombo Time 30.6 Seconds (26.0-36.0)
[2018-03-07 21:08] LABS: Troponin I < 0.03 ng/mL (< 0.04)
[2018-03-07 21:43] LABS: BUN/Creatinine Ratio 21 (6-26); Blood Urea Nitrogen 16 mg/dL (8-23); Calcium 9.4 mg/dL (8.6-10.3); Carbon Dioxide 39 mEq/L (23-29); Chloride 89 mEq/L (98-107); Glucose 109 mg/dL (70-105); Osmolality,Calculated 294 (280-300); Potassium 3.5 mEq/L (3.5-5.1); Sodium 141 mEq/L (136-145); eGFR For Non-African Americans > 60 (> 60)
[2018-03-07] MEDS ORDERED: *HR* LORazepam 2 MG/ML VIAL IVP STA (22:28)
[2018-03-07] MEDS ORDERED: Nitroglycerin 0.4 MG TAB.SUBL SL PRN (22:39)
--- NOTE | 2018-03-07 23:33 | Internal Med History&Physical ---
Date of Encounter: 03/07/18 Time of Encounter: 23:28 Internal Medicine - H&P: HPI Chief complaint: chest pain Admitted From: Home Plans for Post Hospital Care: Home History of present illness: Ms. Gaines is a 72 year old woman with severe COPD on 3L O2 at home, atrial fibrillation not on anticoagulation due to h/o GIB, HTN, cerebral aneurysms s/p aneurysm clips who presents with the complaint of chest pain affecting her left side and shoulder. She states the symptoms started last night and continued into today associated with dyspnea. She took one breathing treatment earlier in the day which improved her symptoms however. She states that her symptoms worsen with exertion and does have anxiety episode which make it worse. On arrival here it was believed she was more in a COPD exacerbation than anything else, getting a triple neb therapy which improved her symptoms however made her atrial fibrillation uncontrolled. On my assessment she states that the chest pain had resolved as well as an improvement in her breathing however she appeared still somewhat dyspneic and labored. She was able to speak in full sentences. Her initial EKG was non-ischemic and troponin negative. She says she uses CPAP at night and is on 3L O2 at home. She is admitted for ongoing observation. She received loading dose ASA in the ER. Past Med Surg Social Fam HX - Past Medical History Medical history: atrial fibrillation, COPD, hyperlipidemia, hypertension, other Additional medical history: brain aneurysms Psychiatric history: depression - Past Surgical History Surgical History: other Additional surgical history: 3 brain aneurysm - Social History Smoking Status: Former smoker Smokeless Tobacco Status: No Alcohol use: none Drug use: none - Family History Mother Living Status: Hx Family Cardiac Disorders: Yes Hx Family Endocrine Disorder: Yes (DM) Father Living Status: Hx Family Cardiac Disorders: Yes Internal Medicine - H&P: Meds Albuterol Sulfate 2.5 mg IH Q4HR PRN 10/29/16 [History] Amitriptyline [Elavil] 25 mg PO DAILY 10/29/16 [History] BuPROPion SR (12 HR) [Wellbutrin SR] 150 mg PO DAILY 10/29/16 [History] Furosemide [Lasix] 40 mg PO DAILY 10/29/16 [History] LORazepam [Ativan] 1 mg PO BID PRN 10/29/16 [History] Magnesium Oxide [Magnesium] 400 mg PO DAILY 10/29/16 [History] Metoprolol [Lopressor] 50 mg PO BID 10/29/16 [History] Nitroglycerin [Nitrostat] 0.4 mg SL Q5M PRN 10/29/16 [History] Pantoprazole Sodium [Protonix] 40 mg PO DAILY 10/29/16 [History] Roflumilast [Daliresp] 500 mcg PO DAILY 10/29/16 [History] Sertraline [Zoloft] 100 mg PO DAILY 10/29/16 [History] Acetaminophen/Butalbital/Caffe [Fioricet] 1 each PO Q6HR PRN 08/14/17 [History] Cyclobenzaprine [Flexeril] 10 mg PO TID PRN 08/14/17 [History] Diltiazem HCl [Cardizem LA] 360 mg PO QDPC #30 tab.er.24h 08/18/17 [Rx] Aspirin [Lo-Dose Aspirin EC] 81 mg PO DAILY 10/04/17 [History] Fluticasone/Salmeterol [Advair 250-50 Diskus] 1 puff IH BID 10/04/17 [History] Pravastatin Sodium [Pravachol] 20 mg PO QPM 10/04/17 [History] Tiotropium [Spiriva] 18 mcg IH DAILY 10/04/17 [History] 3 Allergy/AdvReac Type Severity Reaction Status Date / Time No Known Allergies Allergy Verified 10/03/17 23:45 All Systems PM: A 10-system review of systems was performed and is negative for pertinent findings except as documented above in the HPI. - Constitutional Vitals: Temp Pulse Resp BP Pulse Ox 98 F 114 20 138/66 93 03/07/18 19:47 03/07/18 22:53 03/07/18 22:53 03/07/18 22:53 03/07/18 22:53 Exam: Vitals: Reviewed General: Frail appearing, NAD Skin: Pale, dry. HEENT: Moist mucous membranes. (+) conjunctivae pallor. Neck: No lymphadenopathy. No JVD. No carotid bruits. No palpable thyroid. Chest: Diminished thoracic expansion with diffuse wheezing. Heart: Normal S1 & S2; rhythmic. No rubs or murmurs. Abdomen: Non-distended, soft and non-tender to palpation. Extremities: Varices in both legs. Neurological: Awake, alert and oriented to person, place and time. No focal deficits. Psych: Affect appropriate. Internal Med - H&P Results - Labs CBC & Chem 7: 03/07/18 20:28 03/07/18 20:28 - Assessment and plan (1) COPD exacerbation Current Visit: Yes Status: Acute Assessment and plan: The patient's respiratory symptoms are concerning for a COPD exacerbation and is seen to have responded modestly but incompletely. She will benefit from ongoing nebulizer therapy q4hrs, steroids and perhaps a 3 day course of azithromycin. Supplemental oxygen to continue. CPAP qhs. (2) Atrial fibrillation with RVR Current Visit: Yes Status: Acute Assessment and plan: Poorly controlled. Possibly triggered by albuterol however the patient is unsure if she took her home medications earlier. Will place on telemetry and resume rhythm control. She also received 1mg lorazepam in the ER for possible anxiety component in addition. (3) Chest pain Current Visit: Yes Status: Acute Assessment and plan: Atypical. Will continue to trend troponins till morning, monitor on telemetry and obtain repeat EKG. Qualifiers: Chest pain type: unspecified Qualified Code(s): R07.9 - Chest pain, unspecified (4) Headache Current Visit: Yes Status: Chronic Assessment and plan: Resolved. Qualifiers: Headache type: unspecified Headache chronicity pattern: chronic headache Intractability: not intractable Qualified Code(s): R51 - Headache (5) Hypertension Current Visit: Yes Status: Chronic Assessment and plan: Will resume home anti-hypertensives. Qualifiers: Hypertension type: essential hypertension Qualified Code(s): I10 - Essential (primary) hypertension (6) DVT prophylaxis Current Visit: Yes Status: Resolved Assessment and plan: Heparin SubQ. - Time Spent With Patient Total time spent is greater than 50% in coordination of care (as documented) at patient's floor/unit and/or counseling patient: Greater than 35 minutes
[2018-03-08] MEDS: Ipratropium/Albuterol Neb 3 ML IH SCH ×7 (00:11→23:22)
[2018-03-08] MEDS: Azithromycin 250 MG TABLET PO SCH ×2 (00:22→20:47)
[2018-03-08] MEDS: *HR* Heparin 5,000 UNIT/ML VIAL SQ SCH ×3 (05:43→20:48)
--- NOTE | 2018-03-08 08:41 | Internal Med Progress Note ---
Hospitalist Progress Note - Encounter Date of Encounter: 03/08/18 Time of Encounter: 08:36 - Subjective Interval History: Patient seen and evaluated at bedside reports still feeling short of breath but reports that it has improved when compared to her presentation to the ED. Reports palpitations but denies chest pain, lightheadedness or dizziness. Denies nausea or vomiting. - Exam Vitals: Temp Pulse Resp BP Pulse Ox 97.6 F 166 20 132/78 94 03/08/18 08:25 03/08/18 08:25 03/08/18 08:25 03/08/18 08:25 03/08/18 08:25 Exam: General: Alert and oriented x4. In mild distress due to palpitations Skin: Normal color, no rash, no lesions. HEENT: EOM, pupils equal, round and reactive. Cardiovascular: Tacycardic, irregularly irregular, Normal S1 & S2, no rubs, murmurs or gallops. No JVD. Lungs: mild scatted expiratory wheezing bilaterally, no crackles or rales. Abdomen: Soft, non-tender, no rigidity. NABS in all 4 quadrants. Extremities: No deformity, no edema or tenderness, no joint swelling or clubbing. Neurological: Normal cognition and motor skills. Rest of the physical exam is non contributory - Assessment and Plan (1) Atrial fibrillation with RVR Current Visit: Yes Status: Acute Assessment and Plan: Patient on A.fib with RvR with HR ranging in the 160-170. No chest pain. Possible exacerbation due to Nebs treatment. No ischemic EKG changes. Plan trops sent continue home dose Cardizem PO and metoprolol with holding parameters for SBP < 110 Started on a cardizem drip titrate as per protocol continue telemetry monitoring No anticoagulation due to Hx of GI bleed and cerebral aneurism s/p clips Heparin 5000 units SuBQ/BID On aspirin 81mg/PO daily. (2) COPD exacerbation Current Visit: Yes Status: Acute Assessment and Plan: shortness of improved. Plan Continue Nebs with DUo-Nebs Q4RT scheduled on Symbicort Decrease dose of Prednisone to 40mg/PO daily Incentive spirometry on Azithromycin for empiric antibiotics coverage. (3) Hypertension Current Visit: Yes Status: Chronic Assessment and Plan: BP well controlled on Metoprolol and Cardizem. continue current management. (4) Chest pain Current Visit: Yes Status: Resolved Assessment and Plan: Atypical chest pain. resolved. On nitrorglycerin 0.4mg SubL Q5Min PRN x3 for chest pain. (5) Leukocytosis Current Visit: Yes Status: Acute Assessment and Plan: Possible due to acute inflammatory response due to COPD exacerbation. No signs of acute infection. Being covered empirically with IV antibiotics. (6) Chronic respiratory failure Current Visit: Yes Status: Chronic Assessment and Plan: Patient on 3 L of home oxygen. Continue O2 by nasal cannula, titrate for O2 sat more than 92%. DVT Prophylaxis: On Heparin 5000 units SubQ BID for DVT prophylaxis. - Summary of Assessment and Plan Summary of Assessment and Plan: Patient to remain hospitalized due to A.Fib with RvR on a cardizem drip. Improving COPD exacerbation. - Time Spent with Patient Total time spent is greater than 50% in coordination of care (as documented) at patient's floor/unit and/or counseling patient: 25 - 35 minutes Plan of Care Discussed with: patient (the nurse.) Internal Medicine: Result - Labs CBC & Chem 7: 03/07/18 20:28 03/07/18 20:28 Labs: Cardiac Enzymes 03/08/18 Range/Units 01:53 Troponin I < 0.03 (< 0.04) ng/mL - ABG Interpretation ABG results: PT/INR, D-dimer PT 11.3 Seconds (9.4-12.1) 03/07/18 20:28 Consult Discharge Plan - Plan Referrals: Phu Hensley DO [Primary Care Provider] - (3) Hypertension Qualifiers: Hypertension type: essential hypertension Qualified Code(s): I10 - Essential (primary) hypertension (4) Chest pain Qualifiers: Chest pain type: unspecified Qualified Code(s): R07.9 - Chest pain, unspecified (5) Leukocytosis Qualifiers: Leukocytosis type: unspecified Qualified Code(s): D72.829 - Elevated white blood cell count, unspecified (6) Chronic respiratory failure Qualifiers: Respiratory failure complication: hypoxia Qualified Code(s): J96.11 - Chronic respiratory failure with hypoxia
[2018-03-08] MEDS: BuPROPion SR (12 HR) 150 MG TABLET PO SCH (08:45)
[2018-03-08] MEDS: predniSONE 20 MG TABLET PO SCH (08:45)
[2018-03-08] MEDS: Aspirin Enteric Coated 81 MG Tablet PO SCH (08:45)
[2018-03-08] MEDS: Diltiazem CD (24hr) 180 MG CAPSULE PO SCH (08:45)
[2018-03-08] MEDS: Roflumilast [Daliresp] 500 MCG PO SCH (08:45)
[2018-03-08] MEDS: Magnesium Oxide 400 MG TABLET PO SCH (08:45)
[2018-03-08] MEDS: Furosemide 40 MG TABLET PO SCH (08:45)
[2018-03-08] MEDS: Acetaminophen/Butalbital/CaffeineTABLET PO PRN ×2 (08:48→20:48)
[2018-03-08] MEDS: *HR* LORazepam 1 MG TABLET PO PRN (08:52)
[2018-03-08] MEDS: Budesonide/Formoterol 80/4.5 MDI IH SCH (14:53)
[2018-03-09] MEDS: Budesonide/Formoterol 80/4.5 MDI IH SCH ×3 (01:16→20:17)
[2018-03-09] MEDS: Ipratropium/Albuterol Neb 3 ML IH SCH ×6 (03:42→23:37)
[2018-03-09] MEDS: Acetaminophen/Butalbital/CaffeineTABLET PO PRN ×2 (05:33→21:43)
[2018-03-09] MEDS: *HR* Heparin 5,000 UNIT/ML VIAL SQ SCH ×3 (05:33→21:43)
[2018-03-09] MEDS: Magnesium Oxide 400 MG TABLET PO SCH (08:32)
[2018-03-09] MEDS: Furosemide 40 MG TABLET PO SCH (08:32)
[2018-03-09] MEDS: predniSONE 20 MG TABLET PO SCH (08:32)
[2018-03-09] MEDS: Diltiazem CD (24hr) 180 MG CAPSULE PO SCH (08:32)
[2018-03-09] MEDS: Aspirin Enteric Coated 81 MG Tablet PO SCH (08:32)
[2018-03-09] MEDS: BuPROPion SR (12 HR) 150 MG TABLET PO SCH (08:32)
[2018-03-09] MEDS: Roflumilast [Daliresp] 500 MCG PO SCH (08:33)
[2018-03-09 13:55] LABS: Basophils % 0.1 %; Eosinophils % 0.3 %; Hemoglobin 11.4 g/dL (11.5-15.4); Immature Granulocytes % 0.4 % (0-4); Lymphocytes # 0.6 K/mcL (0.6-4.6); Lymphocytes % 4.6 %; Mean Corpuscular HGB Conc 30.8 g/dL (31.6-35.5); Mean Corpuscular Hemoglobin 30.8 pg (28.0-33.3); Mean Platelet Volume 11.3 fL (9.4-12.4); Monocytes # 0.6 K/mcL (0.0-1.3); Monocytes % 4.4 %; Neutrophils # 12.1 K/mcL (1.6-8.9); Platelet Count 171 K/mcL (140-400); Red Cell Distribution Width 15.2 % (11.5-14.5); Segmented Neutrophils % 90.2 %
[2018-03-09 14:35] LABS: BUN/Creatinine Ratio 30 (6-26); Blood Urea Nitrogen 24 mg/dL (8-23); Calcium 9.1 mg/dL (8.6-10.3); Carbon Dioxide 34 mEq/L (23-29); Chloride 98 mEq/L (98-107); Glucose 146 mg/dL (70-105); Osmolality,Calculated 301 (280-300); Potassium 4.2 mEq/L (3.5-5.1); Sodium 142 mEq/L (136-145); eGFR For Non-African Americans > 60 (> 60)
--- NOTE | 2018-03-09 18:10 | Internal Med Progress Note ---
Hospitalist Progress Note - Encounter Date of Encounter: 03/09/18 Time of Encounter: 13:00 - Subjective Interval History: Patient seen and examined at bedside- NO CP palpitations SOB voiced States that she feels better - Exam Vitals: Temp Pulse Resp BP Pulse Ox 98.4 F 79 16 111/63 97 03/09/18 15:32 03/09/18 15:32 03/09/18 16:08 03/09/18 15:32 03/09/18 16:08 Exam: General: Alert and oriented x4. In mild distress due to palpitations Skin: Normal color, no rash, no lesions. HEENT: EOM, pupils equal, round and reactive. Cardiovascular: Tacycardic, irregularly irregular, Normal S1 & S2, no rubs, murmurs or gallops. No JVD. Lungs: mild scatted expiratory wheezing bilaterally, no crackles or rales. Abdomen: Soft, non-tender, no rigidity. NABS in all 4 quadrants. Extremities: No deformity, no edema or tenderness, no joint swelling or clubbing. Neurological: Normal cognition and motor skills. Rest of the physical exam is non contributory - Assessment and Plan (1) COPD exacerbation Current Visit: Yes Status: Acute Assessment and Plan: shortness of improved. Plan Continue Nebs with DUo-Nebs Q4RT scheduled on Symbicort Decrease dose of Prednisone to 40mg/PO daily Incentive spirometry on Azithromycin for empiric antibiotics coverage. 03/09 Improving we will cont with above plan Will ambulate patient to see if she tolerates (2) Hypertension Current Visit: Yes Status: Chronic Assessment and Plan: BP well controlled on Metoprolol and Cardizem. continue current management. (3) Chest pain Current Visit: Yes Status: Resolved Assessment and Plan: Atypical chest pain. resolved. On nitrorglycerin 0.4mg SubL Q5Min PRN x3 for chest pain. 03/09 No CP today cont ith cardiac monitoring Nitro as needed (4) Atrial fibrillation with RVR Current Visit: Yes Status: Acute Assessment and Plan: Patient on A.fib with RvR with HR ranging in the 160-170. No chest pain. Possible exacerbation due to Nebs treatment. No ischemic EKG changes. Plan trops sent continue home dose Cardizem PO and metoprolol with holding parameters for SBP < 110 Started on a cardizem drip titrate as per protocol continue telemetry monitoring No anticoagulation due to Hx of GI bleed and cerebral aneurism s/p clips Heparin 5000 units SuBQ/BID On aspirin 81mg/PO daily. 03/09 HR controlled 80-90 off cardizem gttt cont with oral cardizem continue telemetry monitoring No anticoagulation due to Hx of GI bleed and cerebral aneurism s/p clips Heparin 5000 units SuBQ/BID On aspirin 81mg/PO daily. (5) Leukocytosis Current Visit: Yes Status: Acute Assessment and Plan: Possible due to acute inflammatory response due to COPD exacerbation. No signs of acute infection. Being covered empirically with IV antibiotics. 03/09 likely from steroid use - cont with ATB - no signs of acute infection (6) Chronic respiratory failure Current Visit: Yes Status: Chronic Assessment and Plan: Patient on 3 L of home oxygen. Continue O2 by nasal cannula, titrate for O2 sat more than 92%. 03/09 On 3 L NC home oxygen - titrate to maintain Spo2 >92% DVT Prophylaxis: On Heparin 5000 units SubQ BID for DVT prophylaxis. - Time Spent with Patient Total time spent is greater than 50% in coordination of care (as documented) at patient's floor/unit and/or counseling patient: Internal Medicine: Result - Labs CBC & Chem 7: 03/09/18 13:13 03/09/18 13:13 Labs: Short CBC 03/09/18 Range/Units 13:13 WBC 13.4 H (4.3-11.1) K/mcL Hgb 11.4 L (11.5-15.4) g/dL Hct 37.0 (35.3-44.9) % Plt Count 171 (140-400) K/mcL Neutrophils # 12.1 H (1.6-8.9) K/mcL BMP 03/09/18 13:13 Sodium 142 Potassium 4.2 Chloride 98 Carbon Dioxide 34 H BUN 24 H Creatinine 0.80 Glucose 146 H Calcium 9.1 - ABG Interpretation ABG results: PT/INR, D-dimer PT 11.3 Seconds (9.4-12.1) 03/07/18 20:28 Consult Discharge Plan - Plan Referrals: Phu Hensley, DO [Primary Care Provider] - (2) Hypertension Qualifiers: Hypertension type: essential hypertension Qualified Code(s): I10 - Essential (primary) hypertension (3) Chest pain Qualifiers: Chest pain type: unspecified Qualified Code(s): R07.9 - Chest pain, unspecified (5) Leukocytosis Qualifiers: Leukocytosis type: unspecified Qualified Code(s): D72.829 - Elevated white blood cell count, unspecified (6) Chronic respiratory failure Qualifiers: Respiratory failure complication: hypoxia Qualified Code(s): J96.11 - Chronic respiratory failure with hypoxia
[2018-03-09] MEDS: *HR* LORazepam 1 MG TABLET PO PRN (21:43)
[2018-03-09] MEDS: Azithromycin 250 MG TABLET PO SCH (21:43)
[2018-03-10] MEDS: Ipratropium/Albuterol Neb 3 ML IH SCH ×2 (04:10→07:51)
[2018-03-10] MEDS: *HR* Heparin 5,000 UNIT/ML VIAL SQ SCH ×2 (05:36→15:50)
[2018-03-10] MEDS: Budesonide/Formoterol 80/4.5 MDI IH SCH (07:51)
[2018-03-10] MEDS ORDERED: predniSONE 20 MG TABLET PO SCH (09:00)
[2018-03-10 09:24] LABS: Basophils % 0.1 %; Eosinophils # 0.2 K/mcL (0.0-0.6); Eosinophils % 1.9 %; Hematocrit 36.2 % (35.3-44.9); Hemoglobin 10.9 g/dL (11.5-15.4); Immature Granulocytes % 0.2 % (0-4); Lymphocytes # 1.7 K/mcL (0.6-4.6); Lymphocytes % 20.2 %; Mean Corpuscular HGB Conc 30.1 g/dL (31.6-35.5); Mean Corpuscular Hemoglobin 30.3 pg (28.0-33.3); Mean Corpuscular Volume 100.6 fL (83.0-100.0); Mean Platelet Volume 10.8 fL (9.4-12.4); Monocytes # 0.7 K/mcL (0.0-1.3); Neutrophils # 5.7 K/mcL (1.6-8.9); Platelet Count 145 K/mcL (140-400); Red Cell Distribution Width 15.4 % (11.5-14.5); Segmented Neutrophils % 69.6 %
[2018-03-10 09:32] LABS: BUN/Creatinine Ratio 37 (6-26); Blood Urea Nitrogen 28 mg/dL (8-23); Carbon Dioxide 34 mEq/L (23-29); Chloride 101 mEq/L (98-107); Glucose 86 mg/dL (70-105); Osmolality,Calculated 297 (280-300); Potassium 4.1 mEq/L (3.5-5.1); Sodium 141 mEq/L (136-145); eGFR For Non-African Americans > 60 (> 60)
[2018-03-10] MEDS: Aspirin Enteric Coated 81 MG Tablet PO SCH (09:39)
[2018-03-10] MEDS: Furosemide 40 MG TABLET PO SCH (09:39)
[2018-03-10] MEDS: BuPROPion SR (12 HR) 150 MG TABLET PO SCH (09:39)
[2018-03-10] MEDS: Diltiazem CD (24hr) 180 MG CAPSULE PO SCH (09:40)
[2018-03-10] MEDS: Magnesium Oxide 400 MG TABLET PO SCH (09:40)
[2018-03-10] MEDS: Roflumilast [Daliresp] 500 MCG PO SCH (09:41)
[2018-03-10] MEDS: Acetaminophen/Butalbital/CaffeineTABLET PO PRN (09:57)
[2018-03-10] MEDS: *HR* LORazepam 1 MG TABLET PO PRN (09:57)
[2018-03-10] MEDS ORDERED: Ipratropium/Albuterol Neb 3 ML IH PRN (11:03)
[2018-03-10 15:50] VITALS: BP 99/57
--- NOTE | 2018-03-10 15:58 | Discharge Summary ---
- NOTES TO OUTPATIENT PROVIDER Notes to Outpatient Provider: COPD exacerbation on steroid taper Date of Encounter: 03/10/18 Time of Encounter: 15:56 - Discharge Diagnosis (1) COPD exacerbation Priority: Primary Status: Acute (2) Hypertension Priority: Secondary Status: Chronic Qualifiers: Hypertension type: essential hypertension Qualified Code(s): I10 - Essential (primary) hypertension (3) Chest pain Priority: Secondary Status: Resolved Qualifiers: Chest pain type: unspecified Qualified Code(s): R07.9 - Chest pain, unspecified (4) Atrial fibrillation with RVR Priority: Secondary Status: Acute (5) Leukocytosis Priority: Secondary Status: Acute Qualifiers: Leukocytosis type: unspecified Qualified Code(s): D72.829 - Elevated white blood cell count, unspecified (6) Chronic respiratory failure Priority: Secondary Status: Chronic Qualifiers: Respiratory failure complication: hypoxia Qualified Code(s): J96.11 - Chronic respiratory failure with hypoxia Hospital course: Ms. Gaines is a 72 year old female past medical history of severe COPD oxygen dependent on 3 L of oxygen at home atrial fibrillation with no anticoagulation due to history of GI bleed hypertension cerebral aneurysm status post aneurysm clips originally presented with complaints of chest pain and dyspnea symptoms worsen with exertion. She was given DuoNeb amps to help her COPD symptoms however after receiving doing them she began to experience uncontrolled A. fib. EKG with nonischemic and negative troponin 3 she was placed on Cardizem drip A. fib rate controlled and was switched back to oral Cardizem. She did not experience any more chest pain during admission she was placed on steroids and was tapered respiratory state did not improve no wheezes she was on her home oxygen 3 L nasal cannula. No cough fever or leukocytosis. Advised patient to follow up with primary care provider and she will be placed on a steroid taper for voiced understanding She is hemodynamically stable she is ready for discharge - Time Spent with Patient Total time spent providing and/or coordinating discharge services: - Discharge Medications Prescriptions: predniSONE [PredniSONE] 10 mg PO DAILY #20 tablet Home Medications: Albuterol Sulfate 2.5 mg IH Q4HR PRN 10/29/16 [History] Amitriptyline [Elavil] 25 mg PO DAILY 10/29/16 [History] BuPROPion SR (12 HR) [Wellbutrin SR] 150 mg PO DAILY 10/29/16 [History] Furosemide [Lasix] 40 mg PO DAILY 10/29/16 [History] LORazepam [Ativan] 1 mg PO BID PRN 10/29/16 [History] Magnesium Oxide [Magnesium] 400 mg PO DAILY 10/29/16 [History] Metoprolol [Lopressor] 50 mg PO BID 10/29/16 [History] Nitroglycerin [Nitrostat] 0.4 mg SL Q5M PRN 10/29/16 [History] Pantoprazole Sodium [Protonix] 40 mg PO DAILY 10/29/16 [History] Roflumilast [Daliresp] 500 mcg PO DAILY 10/29/16 [History] Sertraline [Zoloft] 100 mg PO DAILY 10/29/16 [History] Acetaminophen/Butalbital/Caffe [Fioricet] 1 each PO Q6HR PRN 08/14/17 [History] Cyclobenzaprine [Flexeril] 10 mg PO TID PRN 08/14/17 [History] Diltiazem HCl [Cardizem LA] 360 mg PO QDPC #30 tab.er.24h 08/18/17 [Rx] Aspirin [Lo-Dose Aspirin EC] 81 mg PO DAILY 10/04/17 [History] Fluticasone/Salmeterol [Advair 250-50 Diskus] 1 puff IH BID 10/04/17 [History] Pravastatin Sodium [Pravachol] 20 mg PO QPM 10/04/17 [History] Tiotropium [Spiriva] 18 mcg IH DAILY 10/04/17 [History] predniSONE [PredniSONE] 10 mg PO DAILY #20 tablet 03/10/18 [Rx] Allergies/Adverse Reactions: 3 Allergy/AdvReac Type Severity Reaction Status Date / Time No Known Allergies Allergy Verified 10/03/17 23:45 Date of admission: 03/07/18 22:04 Primary care physician: Phu Hensley DO Consults: 03/08/18 09:31 Consult to Nurse Navigator [CONS] Routine Comment: COPD Discharging clinician: Kaylee Bell Anticipated date of discharge: 03/10/18 - Constitutional Vitals: Temp Pulse Resp BP Pulse Ox 98.2 F 70 16 99/57 96 03/10/18 15:49 03/10/18 15:49 03/10/18 15:49 03/10/18 15:49 03/10/18 15:49 General appearance: Present: A&O X 3 Exam: General: Alert and oriented x4. In mild distress due to palpitations Skin: Normal color, no rash, no lesions. HEENT: EOM, pupils equal, round and reactive. Cardiovascular: Tacycardic, irregularly irregular, Normal S1 & S2, no rubs, murmurs or gallops. No JVD. Lungs: mild scatted expiratory wheezing bilaterally, no crackles or rales. Abdomen: Soft, non-tender, no rigidity. NABS in all 4 quadrants. Extremities: No deformity, no edema or tenderness, no joint swelling or clubbing. Neurological: Normal cognition and motor skills. Rest of the physical exam is non contributory - Head Head exam: Present: atraumatic, normocephalic - Eye Eye exam: Present: PERRL, conjuntiva pink, sclera anicteric Pupils: Present: PERRL - Neck Neck exam general surgery: Present: supple, trachea midline. Absent: lymphadenopathy - Respiratory Respiratory exam: Present: CTAB. Absent: accessory muscle use, rales, rhonchi, wheezes - Cardiovascular Cardiovascular exam: Present: RRR, +S1, +S2. Absent: diastolic murmur, gallop, rubs, systolic murmur - GI/Abdominal GI/Abdominal exam: Present: normal bowel sounds, soft, no peritoneal signs. Absent: distended, tenderness - Extremities Exam Extremities exam: Present: warm, radial pulses palpable and symmetrical. Absent : calf tenderness, cyanotic, pedal edema - Neurological Exam Neurological exam: Present: CN II-XII intact, oriented X3, no focal deficits. Absent: pronater drift, facial droop, speech deficit - Patient Status Disposition: Home, Self-Care Condition: Good Functional capacity at discharge: independent ambulation Overall status at discharge: patient is back to baseline - Discharge Instructions Instructions: Chronic Obstructive Pulmonary Disease (DC) Follow Up With: Phu Hensley DO [Primary Care Provider] - 03/17/18 9:30 am (Made an appointment with a [employer] Dasha Mack, there were no appointments with Shellie) Additional Instructions: Follow-up appointments: If there is not an appointment listed below, please call your physician and schedule a follow-up appointment. If you have congestive heart failure and your symptoms return, make an appointment with your physician. Medication List: Carry an up to date list of medications you are taking at all time. We have given you an updated medication list including any new medications that you have been prescribed. Please provide that list to your primary provider Symptoms: If your condition changes or you experience any of the following symptoms, notify your physician immediately: Unusual or worsening pain, fever, persistent nausea and vomiting, bleeding, increase in swelling (especially in your legs), sudden weight gain, extreme dizziness, chest pain, increased drainage or redness from a wound or incision. Go to the emergency department if you experience a problem with breathing. Weights: If you have a history of swelling or shortness of breath, weigh yourself daily and notify your physician if you have a weight gain of two or more pounds in one day or 5 or more pounds in a week. If you experience any of the warning signs for stroke: Sudden numbness or weakness of the face, arm or leg; especially on one side of the body, sudden confusion, trouble speaking or understanding, sudden trouble seeing in one or both eyes, sudden trouble walking, dizziness, loss of balance or coordination, sudden sever headache with no cause; Call 911 or go to the emergency room. Stroke is a medical emergency. Some risk factors for stroke: Age, cigarette smoking, diabetes, excessive alcohol consumption, family history , high blood pressure, overweight, physical inactivity, prior stroke, heart attack, diagnosis of carotid artery stenosis or other artery disease. If you smoke, STOP: Smoking or tobacco use significantly increases your risk of heart and lung disease. Your chance of disease greatly increases if you continue to smoke. For more information, call the [place] tobacco quit line for smoking cessation QUIT-NOW ( ) - Diet and Activity Activity: increase activity as tolerated, wear oxygen at all times Diet: advance to your usual diet
--- NOTE | 2018-03-12 17:03 | Electrocardiograph Report ---
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
--- NOTE | 2018-03-13 08:47 | Electrocardiograph Report ---
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
== END 2018-03-10 17:50 | disposition home or self-care (01) ==
LOC: 3BNU 18:43 → EMEROOARM 18:43 → SUATTDRO 22:04 → 3BNU 23:14
PROVIDERS: ADMIT Internal Medicine; ATTEND Internal Medicine

== ENCOUNTER 2019-01-17 21:45 | Observation (INO) ==
[2019-01-17] MEDS ORDERED: Aspirin 81 MG TAB.CHEW PO STA (22:00)
[2019-01-17 22:32] LABS: Hematocrit 34.8 % (35.3-44.9); Hemoglobin 10.9 g/dL (11.5-15.4); Mean Corpuscular HGB Conc 31.3 g/dL (31.6-35.5); Mean Corpuscular Hemoglobin 28.2 pg (28.0-33.3); Mean Corpuscular Volume 89.9 fL (83.0-100.0); Mean Platelet Volume 10.7 fL (9.4-12.4); Platelet Count 216 K/mcL (140-400); Red Blood Count 3.87 M/mcL (3.82-4.97); Red Cell Distribution Width 15.9 % (11.5-14.5); White Blood Count 7.7 K/mcL (4.3-11.1)
[2019-01-17 22:53] LABS: BUN/Creatinine Ratio 24 (6-26); Blood Urea Nitrogen 27 mg/dL (8-23); Calcium 9.3 mg/dL (8.6-10.3); Carbon Dioxide 29 mEq/L (23-29); Chloride 100 mEq/L (98-107); Glucose 126 mg/dL (70-105); Osmolality,Calculated 295 (280-300); Potassium 3.6 mEq/L (3.5-5.1); Sodium 139 mEq/L (136-145); eGFR For African Americans 57 (> 60); eGFR For Non-African Americans 47 (> 60)
[2019-01-17 22:54] LABS: Troponin I < 0.03 ng/mL (< 0.04)
[2019-01-18] MEDS ORDERED: *HR* Promethazine 25 MG/ML VIAL IVP PRN (03:42)
[2019-01-18] MEDS ORDERED: Naloxone 0.4 MG/ML INJ IVP PRN (03:42)
[2019-01-18] MEDS ORDERED: *HR* OxyCODONE Immed Rel 5 MG TABLET PO PRN (03:42)
[2019-01-18] MEDS ORDERED: Nitroglycerin 0.4 MG TAB.SUBL SL PRN (03:45)
[2019-01-18] MEDS: Acetaminophen 325 MG TABLET PO PRN ×2 (04:43→16:47)
[2019-01-18 05:39] LABS: Bilirubin,Urine Negative (Negative); Blood,Urine Negative (Negative); Clarity,Urine Clear (Clear); Color,Urine Yellow (Yellow); Glucose,Urine (UA) Normal (Normal); Ketones,Urine Negative (Negative); Leukocyte Esterase,Urine Trace (Negative); Nitrite,Urine Negative (Negative); PH,Urine 5.5 pH Units (5.0-8.0); Protein,Urine Negative (Neg-Trace); Specific Gravity,Urine 1.021 (1.010-1.025); Urobilinogen,Urine Normal (Normal)
[2019-01-18 05:41] LABS: Bacteria,Urine None Seen per hpf (None-Few); Hyaline Casts,Urine None Seen per lpf (None-Few); Squamous Epithelial Cell,Urine Moderate per lpf (None-Few); WBC,Urine 0-3 per hpf (0-3)
[2019-01-18 05:53] LABS: % Iron Saturation 11 % (15-50); Iron 46 mcg/dL (50-170); Transferrin 300 mg/dL (203-362)
[2019-01-18 05:59] LABS: BUN/Creatinine Ratio 28 (6-26); Blood Urea Nitrogen 28 mg/dL (8-23); Calcium 9.2 mg/dL (8.6-10.3); Carbon Dioxide 31 mEq/L (23-29); Chloride 100 mEq/L (98-107); Cholesterol 185 mg/dL (< 200); Glucose 108 mg/dL (70-105); HDL Cholesterol 62 mg/dL (40-59); LDL Cholesterol,Calculated 100 mg/dL (0-99); Magnesium 2.3 mg/dL (1.6-2.6); Osmolality,Calculated 300 (280-300); Potassium 3.6 mEq/L (3.5-5.1); Sodium 142 mEq/L (136-145); Triglycerides 117 mg/dL (< 150); Troponin I < 0.03 ng/mL (< 0.04); eGFR For African Americans > 60 (> 60); eGFR For Non-African Americans 54 (> 60)
[2019-01-18 07:27] LABS: Adenovirus Not Detected (Not Detect); Bordetella Pertussis Not Detected (Not Detect); Chlamydophila pneumoniae Not Detected (Not Detect); Coronavirus 229E Not Detected (Not Detect); Coronavirus HKU1 Not Detected (Not Detect); Coronavirus NL63 Not Detected (Not Detect); Coronavirus OC43 Not Detected (Not Detect); Human Metapneumovirus Not Detected (Not Detect); Human Rhinovirus/Enterovirus Not Detected (Not Detect); Influenza A Subtype 2009 H1 Not Detected (Not Detect); Influenza B Not Detected (Not Detect); Mycoplasma pneumoniae Not Detected (Not Detect); Parainfluenza Virus 1 Not Detected (Not Detect); Parainfluenza Virus 2 Not Detected (Not Detect); Parainfluenza Virus 3 Not Detected (Not Detect); Parainfluenza Virus 4 Not Detected (Not Detect); Respiratory Syncytial Virus Not Detected (Not Detect)
[2019-01-18] MEDS: Levalbuterol Neb 1.25 MG/3 ML IH SCH ×4 (07:33→22:55)
[2019-01-18] MEDS ORDERED: DilTIAZem CD (24hr) 180 MG CAP.ER.24H PO SCH (09:00)
[2019-01-18] MEDS ORDERED: Furosemide 40 MG TABLET PO SCH ×2 (09:00→17:00)
[2019-01-18] MEDS: BuPROPion SR (12 HR) 150 MG TABLET PO SCH (09:09)
[2019-01-18] MEDS: Aspirin Enteric Coated 81 MG Tablet PO SCH (09:09)
[2019-01-18] MEDS: *HR* LORazepam 1 MG TABLET PO PRN (09:10)
[2019-01-18] MEDS ORDERED: Budesonide/Formoterol 80/4.5 1 PUFF INH IH SCH (10:00)
[2019-01-18] MEDS: Tiotropium 18 MCG inhalation IH SCH (10:22)
[2019-01-18] MEDS ORDERED: Isovue-370 500 ML BOTTLE IVP ONE (10:50)
[2019-01-18] MEDS ORDERED: Albuterol 2.5 MG/3 ML NEBULIZER IH PRN (17:10)
[2019-01-18] MEDS: Bumetanide 1 MG TABLET PO SCH (18:23)
[2019-01-18] MEDS: Magnesium Oxide 400 MG TABLET PO SCH (20:32)
[2019-01-18] MEDS: levETIRAcetam 250 MG TABLET PO SCH (20:32)
[2019-01-18] MEDS: Budesonide/Formoterol 160/4.5 1 PUFF INH IH SCH (22:55)
[2019-01-19] MEDS: Levalbuterol Neb 1.25 MG/3 ML IH SCH ×4 (04:20→22:19)
[2019-01-19 04:33] LABS: Basophils % 0.5 %; Eosinophils # 0.6 K/mcL (0.0-0.6); Eosinophils % 11.7 %; Hematocrit 32.9 % (35.3-44.9); Hemoglobin 10.1 g/dL (11.5-15.4); Immature Granulocytes % 0.7 % (0-4); Lymphocytes # 1.4 K/mcL (0.6-4.6); Lymphocytes % 25.9 %; Mean Corpuscular HGB Conc 30.7 g/dL (31.6-35.5); Mean Corpuscular Hemoglobin 27.9 pg (28.0-33.3); Mean Corpuscular Volume 90.9 fL (83.0-100.0); Mean Platelet Volume 10.6 fL (9.4-12.4); Monocytes # 0.6 K/mcL (0.0-1.3); Monocytes % 11.3 %; Neutrophils # 2.7 K/mcL (1.6-8.9); Platelet Count 168 K/mcL (140-400); Red Blood Count 3.62 M/mcL (3.82-4.97); Red Cell Distribution Width 16.1 % (11.5-14.5); Segmented Neutrophils % 49.9 %; White Blood Count 5.5 K/mcL (4.3-11.1)
[2019-01-19 04:57] LABS: Albumin 3.7 g/dL (3.5-5.7); Albumin/Globulin Ratio 1.4 (1.1-2.2); Bilirubin,Total 0.3 mg/dL (0.3-1.0); Calcium 9.2 mg/dL (8.6-10.3); Globulin 2.6 g/dL (2.4-3.5); Total Protein 6.3 g/dL (6.4-8.9)
[2019-01-19] MEDS ORDERED: Regadenoson 0.4 MG/5 ML SYRINGE IVP ONE ×2 (07:19→07:44)
[2019-01-19] MEDS ORDERED: predniSONE 5 MG TABLET PO SCH (09:00)
[2019-01-19] MEDS: Bumetanide 1 MG TABLET PO SCH ×2 (10:30→10:32)
[2019-01-19] MEDS: levETIRAcetam 250 MG TABLET PO SCH ×2 (10:32→20:45)
[2019-01-19] MEDS: Cholecalciferol (D-3) 1,000 UNIT (25MCG) TABLET PO SCH (10:32)
[2019-01-19] MEDS: BuPROPion SR (12 HR) 150 MG TABLET PO SCH (10:32)
[2019-01-19] MEDS: DilTIAZem CD (24hr) 180 MG CAP.ER.24H PO SCH (10:32)
[2019-01-19] MEDS: Aspirin Enteric Coated 81 MG Tablet PO SCH (10:33)
[2019-01-19] MEDS: Budesonide/Formoterol 160/4.5 1 PUFF INH IH SCH ×2 (10:48→22:19)
[2019-01-19] MEDS: Tiotropium 18 MCG inhalation IH SCH (10:48)
[2019-01-19] MEDS: *HR* LORazepam 1 MG TABLET PO PRN (20:45)
[2019-01-19] MEDS: Magnesium Oxide 400 MG TABLET PO SCH (20:45)
[2019-01-19] MEDS: Acetaminophen 325 MG TABLET PO PRN (20:46)
[2019-01-20 02:39] LABS: Hematocrit 31.1 % (35.3-44.9); Hemoglobin 9.4 g/dL (11.5-15.4); Mean Corpuscular HGB Conc 30.2 g/dL (31.6-35.5); Mean Corpuscular Hemoglobin 27.8 pg (28.0-33.3); Mean Platelet Volume 10.6 fL (9.4-12.4); Platelet Count 152 K/mcL (140-400); Red Blood Count 3.38 M/mcL (3.82-4.97); Red Cell Distribution Width 16.1 % (11.5-14.5); White Blood Count 5.3 K/mcL (4.3-11.1)
[2019-01-20 03:01] LABS: BUN/Creatinine Ratio 24 (6-26); Blood Urea Nitrogen 25 mg/dL (8-23); Calcium 9.1 mg/dL (8.6-10.3); Carbon Dioxide 32 mEq/L (23-29); Chloride 101 mEq/L (98-107); Glucose 105 mg/dL (70-105); Osmolality,Calculated 293 (280-300); Potassium 3.8 mEq/L (3.5-5.1); Sodium 139 mEq/L (136-145); eGFR For African Americans > 60 (> 60); eGFR For Non-African Americans 52 (> 60)
[2019-01-20] MEDS: Levalbuterol Neb 1.25 MG/3 ML IH SCH ×2 (04:09→10:29)
[2019-01-20 08:03] VITALS: BP 90/60
[2019-01-20] MEDS: BuPROPion SR (12 HR) 150 MG TABLET PO SCH (09:06)
[2019-01-20] MEDS: DilTIAZem CD (24hr) 180 MG CAP.ER.24H PO SCH (09:06)
[2019-01-20] MEDS: levETIRAcetam 250 MG TABLET PO SCH (09:06)
[2019-01-20] MEDS: Cholecalciferol (D-3) 1,000 UNIT (25MCG) TABLET PO SCH (09:06)
[2019-01-20] MEDS: Aspirin Enteric Coated 81 MG Tablet PO SCH (09:06)
[2019-01-20] MEDS: Bumetanide 1 MG TABLET PO SCH (09:06)
[2019-01-20] MEDS: Budesonide/Formoterol 160/4.5 1 PUFF INH IH SCH (10:29)
[2019-01-20] MEDS: Tiotropium 18 MCG inhalation IH SCH (10:30)
== END 2019-01-20 13:12 | disposition home or self-care (01) ==
LOC: EMEROOARM 21:45 → 3BNU 21:45
PROVIDERS: ADMIT Pediatrics; ATTEND Pediatrics

== ENCOUNTER 2019-06-21 17:00 | Inpatient (IN) ==
[2019-06-21] MEDS ORDERED: methylPREDNISolone 125 MG/2 ML VIAL IVP ONE (17:30)
[2019-06-21] MEDS ORDERED: Ipratropium/Albuterol Neb 3 ML IH ONE (17:31)
[2019-06-21 17:48] LABS: Basophils % 0.3 %; Eosinophils # 0.6 K/mcL (0.0-0.6); Eosinophils % 4.4 %; Hemoglobin 11.4 g/dL (11.5-15.4); Immature Granulocytes % 0.6 % (0-4); Lymphocytes % 13.6 %; Mean Corpuscular HGB Conc 32.6 g/dL (31.6-35.5); Mean Corpuscular Hemoglobin 31.5 pg (28.0-33.3); Mean Corpuscular Volume 96.7 fL (83.0-100.0); Monocytes # 1.1 K/mcL (0.0-1.3); Monocytes % 7.8 %; Neutrophils # 10.6 K/mcL (1.6-8.9); Platelet Count 222 K/mcL (140-400); Red Blood Count 3.62 M/mcL (3.82-4.97); Red Cell Distribution Width 15.2 % (11.5-14.5); Segmented Neutrophils % 73.3 %; White Blood Count 14.5 K/mcL (4.3-11.1)
[2019-06-21 18:04] LABS: BUN/Creatinine Ratio 16 (6-26); Blood Urea Nitrogen 17 mg/dL (8-23); Carbon Dioxide 31 mEq/L (23-29); Chloride 96 mEq/L (98-107); Glucose 113 mg/dL (70-105); Magnesium 1.9 mg/dL (1.6-2.6); Osmolality,Calculated 292 (280-300); Potassium 3.6 mEq/L (3.5-5.1); Sodium 140 mEq/L (136-145); Troponin I < 0.03 ng/mL (< 0.04); eGFR For African Americans 59 (> 60); eGFR For Non-African Americans 49 (> 60)
[2019-06-21] MEDS ORDERED: Isovue-370 500 ML BOTTLE IVP ONE (19:01)
[2019-06-21] MEDS ORDERED: Azithromycin 500 MG in 0.9 % Sodium Chloride 250 ML IVPB ONE (20:36)
[2019-06-21] MEDS ORDERED: cefTRIAXone 1,000 MG in Water for inj. (sterile) 10 ML IVP ONE (20:36)
[2019-06-21] MEDS: 0.9 % Sodium Chloride 1,000 ML IVC SCH (21:20)
[2019-06-21] MEDS ORDERED: Naloxone 0.4 MG/ML INJ IVP PRN (21:53)
[2019-06-21] MEDS ORDERED: Nitroglycerin 0.4 MG TAB.SUBL SL PRN (21:56)
[2019-06-21] MEDS ORDERED: *HR* Metoprolol 5 MG/5 ML VIAL IVP PRN (21:56)
[2019-06-21] MEDS ORDERED: Ipratropium/Albuterol Neb 3 ML IH PRN (22:43)
[2019-06-21] MEDS ORDERED: *HR* LORazepam 2 MG/ML VIAL IVP ONE (22:44)
[2019-06-21] MEDS: MethylPREDNISolone 40 MG/ML VIAL IVP SCH (23:20)
[2019-06-21] MEDS: Levalbuterol Neb 1.25 MG/3 ML IH SCH (23:52)
[2019-06-21] MEDS: Ipratropium Neb 0.5 MG NEBULIZER IH SCH (23:52)
[2019-06-22] MEDS ORDERED: Ipratropium/Albuterol Neb 3 ML IH SCH
[2019-06-22 00:50] LABS: Adenovirus Not Detected (Not Detect); Bordetella Pertussis Not Detected (Not Detect); Chlamydophila pneumoniae Not Detected (Not Detect); Coronavirus 229E Not Detected (Not Detect); Coronavirus HKU1 Not Detected (Not Detect); Coronavirus NL63 Not Detected (Not Detect); Coronavirus OC43 Not Detected (Not Detect); Human Metapneumovirus Not Detected (Not Detect); Human Rhinovirus/Enterovirus Not Detected (Not Detect); Influenza A Subtype 2009 H1 Not Detected (Not Detect); Influenza B Not Detected (Not Detect); Mycoplasma pneumoniae Not Detected (Not Detect); Parainfluenza Virus 1 Not Detected (Not Detect); Parainfluenza Virus 2 Not Detected (Not Detect); Parainfluenza Virus 3 Not Detected (Not Detect); Parainfluenza Virus 4 Not Detected (Not Detect); Respiratory Syncytial Virus Not Detected (Not Detect)
[2019-06-22 02:50] LABS: Basophils % 0.2 %; Hematocrit 31.8 % (35.3-44.9); Hemoglobin 9.9 g/dL (11.5-15.4); Immature Granulocytes % 0.6 % (0-4); Lymphocytes # 0.4 K/mcL (0.6-4.6); Lymphocytes % 3.5 %; Mean Corpuscular HGB Conc 31.1 g/dL (31.6-35.5); Mean Corpuscular Hemoglobin 31.5 pg (28.0-33.3); Mean Corpuscular Volume 101.3 fL (83.0-100.0); Mean Platelet Volume 10.3 fL (9.4-12.4); Monocytes # 0.1 K/mcL (0.0-1.3); Monocytes % 0.9 %; Neutrophils # 10.3 K/mcL (1.6-8.9); Platelet Count 175 K/mcL (140-400); Red Blood Count 3.14 M/mcL (3.82-4.97); Segmented Neutrophils % 94.8 %; White Blood Count 10.9 K/mcL (4.3-11.1)
[2019-06-22 03:10] LABS: BUN/Creatinine Ratio 16 (6-26); Blood Urea Nitrogen 17 mg/dL (8-23); Calcium 8.7 mg/dL (8.6-10.3); Carbon Dioxide 32 mEq/L (23-29); Chloride 98 mEq/L (98-107); Glucose 225 mg/dL (70-105); Osmolality,Calculated 299 (280-300); Potassium 3.9 mEq/L (3.5-5.1); Sodium 140 mEq/L (136-145); eGFR For African Americans > 60 (> 60); eGFR For Non-African Americans 51 (> 60)
[2019-06-22] MEDS: Ipratropium Neb 0.5 MG NEBULIZER IH SCH ×5 (03:53→20:07)
[2019-06-22] MEDS: Levalbuterol Neb 1.25 MG/3 ML IH SCH ×5 (03:53→20:08)
[2019-06-22] MEDS: 0.9 % Sodium Chloride 1,000 ML IVC SCH ×3 (04:35→20:33)
[2019-06-22] MEDS ORDERED: *HR* Heparin 5,000 UNIT/ML VIAL SQ SCH (06:00)
[2019-06-22] MEDS: Acetaminophen 325 MG TABLET PO PRN ×2 (06:06→16:36)
[2019-06-22] MEDS: Budesonide/Formoterol 160/4.5 1 PUFF INH IH SCH ×2 (07:48→20:07)
[2019-06-22] MEDS: Aspirin Enteric Coated 81 MG Tablet PO SCH (08:57)
[2019-06-22] MEDS: DilTIAZem CD (24hr) 180 MG CAP.ER.24H PO SCH (08:57)
[2019-06-22] MEDS: Cholecalciferol (D-3) 1,000 UNIT (25MCG) TABLET PO SCH (08:57)
[2019-06-22] MEDS: cefTRIAXone 1,000 MG in Water for inj. (sterile) 10 ML IVP SCH (08:57)
[2019-06-22] MEDS: MethylPREDNISolone 40 MG/ML VIAL IVP SCH ×2 (08:58→16:36)
[2019-06-22] MEDS: levETIRAcetam 250 MG TABLET PO SCH ×2 (09:00→20:39)
[2019-06-22] MEDS ORDERED: Bumetanide 1 MG TABLET PO SCH (09:00)
[2019-06-22] MEDS: DALIRESP 500 MCG PO SCH (09:00)
[2019-06-22] MEDS: *HR* LORazepam 1 MG TABLET PO SCH ×2 (09:00→20:39)
[2019-06-22] MEDS ORDERED: Furosemide 40 MG TABLET PO SCH (09:00)
[2019-06-22] MEDS: Cyanocobalamin (B-12) 1,000 MCG TABLET PO SCH (20:32)
[2019-06-22] MEDS: Azithromycin 500 MG in 0.9 % Sodium Chloride 250 ML IVPB SCH (20:32)
[2019-06-22] MEDS: Magnesium Oxide 400 MG TABLET PO SCH (20:34)
[2019-06-23] MEDS: Levalbuterol Neb 1.25 MG/3 ML IH SCH ×7 (00:06→23:52)
[2019-06-23] MEDS: Ipratropium Neb 0.5 MG NEBULIZER IH SCH ×7 (00:06→23:52)
[2019-06-23] MEDS: MethylPREDNISolone 40 MG/ML VIAL IVP SCH ×3 (00:42→18:28)
[2019-06-23] MEDS: Acetaminophen 325 MG TABLET PO PRN ×2 (00:42→14:35)
[2019-06-23] MEDS: Budesonide/Formoterol 160/4.5 1 PUFF INH IH SCH ×2 (07:23→20:03)
[2019-06-23] MEDS: *HR* LORazepam 1 MG TABLET PO SCH ×2 (08:14→21:11)
[2019-06-23] MEDS: Cholecalciferol (D-3) 1,000 UNIT (25MCG) TABLET PO SCH (08:14)
[2019-06-23] MEDS: Aspirin Enteric Coated 81 MG Tablet PO SCH (08:14)
[2019-06-23] MEDS: DilTIAZem CD (24hr) 180 MG CAP.ER.24H PO SCH (08:15)
[2019-06-23] MEDS: cefTRIAXone 1,000 MG in Water for inj. (sterile) 10 ML IVP SCH (08:15)
[2019-06-23] MEDS: 0.9 % Sodium Chloride 1,000 ML IVC SCH (08:16)
[2019-06-23] MEDS: levETIRAcetam 250 MG TABLET PO SCH ×2 (08:19→21:11)
[2019-06-23 10:34] LABS: Hematocrit 31.5 % (35.3-44.9); Hemoglobin 9.5 g/dL (11.5-15.4); Mean Corpuscular HGB Conc 30.2 g/dL (31.6-35.5); Mean Corpuscular Hemoglobin 31.4 pg (28.0-33.3); Mean Platelet Volume 9.8 fL (9.4-12.4); Platelet Count 222 K/mcL (140-400); Red Blood Count 3.03 M/mcL (3.82-4.97); Red Cell Distribution Width 15.3 % (11.5-14.5)
[2019-06-23 10:35] LABS: White Blood Count 18.7 K/mcL (4.3-11.1)
[2019-06-23 10:51] LABS: BUN/Creatinine Ratio 25 (6-26); Blood Urea Nitrogen 23 mg/dL (8-23); Calcium 8.7 mg/dL (8.6-10.3); Carbon Dioxide 28 mEq/L (23-29); Chloride 106 mEq/L (98-107); Glucose 186 mg/dL (70-105); Osmolality,Calculated 305 (280-300); Potassium 4.2 mEq/L (3.5-5.1); Sodium 143 mEq/L (136-145); eGFR For African Americans > 60 (> 60); eGFR For Non-African Americans 59 (> 60)
[2019-06-23] MEDS: DALIRESP 500 MCG PO SCH (11:23)
[2019-06-23] MEDS ORDERED: Ibuprofen 600 MG TABLET PO ONE (19:34)
[2019-06-23] MEDS ORDERED: Acetaminophen/Aspirin/Caffeine TABLET PO ONE (19:46)
[2019-06-23] MEDS: Magnesium Oxide 400 MG TABLET PO SCH (21:02)
[2019-06-23] MEDS: Cyanocobalamin (B-12) 1,000 MCG TABLET PO SCH (21:02)
[2019-06-23] MEDS: Azithromycin 500 MG in 0.9 % Sodium Chloride 250 ML IVPB SCH (21:11)
[2019-06-23] MEDS ORDERED: Furosemide 20 MG TABLET PO ONE (21:17)
[2019-06-24] MEDS: MethylPREDNISolone 40 MG/ML VIAL IVP SCH ×2 (00:26→08:25)
[2019-06-24] MEDS: Ipratropium Neb 0.5 MG NEBULIZER IH SCH ×2 (04:14→07:19)
[2019-06-24] MEDS: Levalbuterol Neb 1.25 MG/3 ML IH SCH ×2 (04:14→07:19)
[2019-06-24 06:45] LABS: Hematocrit 30.7 % (35.3-44.9); Hemoglobin 9.2 g/dL (11.5-15.4); Mean Corpuscular Hemoglobin 31.4 pg (28.0-33.3); Mean Corpuscular Volume 104.8 fL (83.0-100.0); Mean Platelet Volume 10.1 fL (9.4-12.4); Platelet Count 215 K/mcL (140-400); Red Blood Count 2.93 M/mcL (3.82-4.97); Red Cell Distribution Width 15.3 % (11.5-14.5); White Blood Count 12.7 K/mcL (4.3-11.1)
[2019-06-24 06:50] VITALS: BP 98/56
[2019-06-24 07:07] LABS: BUN/Creatinine Ratio 29 (6-26); Blood Urea Nitrogen 29 mg/dL (8-23); Calcium 8.7 mg/dL (8.6-10.3); Carbon Dioxide 31 mEq/L (23-29); Chloride 103 mEq/L (98-107); Glucose 180 mg/dL (70-105); Osmolality,Calculated 304 (280-300); Potassium 4.2 mEq/L (3.5-5.1); Sodium 142 mEq/L (136-145); eGFR For African Americans > 60 (> 60); eGFR For Non-African Americans 54 (> 60)
[2019-06-24] MEDS: Budesonide/Formoterol 160/4.5 1 PUFF INH IH SCH (07:19)
[2019-06-24] MEDS: cefTRIAXone 1,000 MG in Water for inj. (sterile) 10 ML IVP SCH (08:24)
[2019-06-24] MEDS: Cholecalciferol (D-3) 1,000 UNIT (25MCG) TABLET PO SCH (08:25)
[2019-06-24] MEDS: DilTIAZem CD (24hr) 180 MG CAP.ER.24H PO SCH (08:25)
[2019-06-24] MEDS: levETIRAcetam 250 MG TABLET PO SCH (08:25)
[2019-06-24] MEDS: *HR* LORazepam 1 MG TABLET PO SCH (08:26)
[2019-06-24] MEDS: Aspirin Enteric Coated 81 MG Tablet PO SCH (08:26)
[2019-06-24] MEDS ORDERED: DALIRESP 500 MCG PO SCH (09:00)
[2019-06-26 09:31] LABS: Mycoplasma pneumoniae IgG 2.7 U/L (<=0.09)
== END 2019-06-24 10:11 | disposition home or self-care (01) | DRG 871 ==
LOC: EMEROOARM 17:00 → 3BNU 17:00
PROVIDERS: ADMIT Family Medicine; ATTEND Family Medicine

== ENCOUNTER 2020-07-05 10:56 | Observation (INO) ==
[2020-07-05] MEDS ORDERED: predniSONE 20 MG TABLET PO ONE (11:19)
[2020-07-05] MEDS ORDERED: Ipratropium/Albuterol Neb 3 ML IH ONE (11:19)
[2020-07-05 12:17] LABS: Basophils % 0.3 %; Eosinophils # 0.1 K/mcL (0.0-0.6); Eosinophils % 1.1 %; Hematocrit 40.4 % (35.3-44.9); Hemoglobin 11.9 g/dL (11.5-15.4); Immature Granulocytes % 1.1 % (0-4); Lymphocytes # 0.8 K/mcL (0.6-4.6); Lymphocytes % 8.1 %; Mean Corpuscular HGB Conc 29.5 g/dL (31.6-35.5); Mean Corpuscular Hemoglobin 31.2 pg (28.0-33.3); Mean Corpuscular Volume 105.8 fL (83.0-100.0); Mean Platelet Volume 10.2 fL (9.4-12.4); Monocytes # 0.5 K/mcL (0.0-1.3); Monocytes % 5.4 %; Neutrophils # 8.3 K/mcL (1.6-8.9); Platelet Count 276 K/mcL (140-400); Red Blood Count 3.82 M/mcL (3.82-4.97); Red Cell Distribution Width 14.1 % (11.5-14.5); White Blood Count 9.9 K/mcL (4.3-11.1)
[2020-07-05 12:30] LABS: BUN/Creatinine Ratio 28 (6-26); Blood Urea Nitrogen 21 mg/dL (8-23); Calcium 9.7 mg/dL (8.6-10.3); Carbon Dioxide 37 mEq/L (23-29); Chloride 95 mEq/L (98-107); Glucose 99 mg/dL (70-105); Osmolality,Calculated 291 (280-300); Potassium 4.7 mEq/L (3.5-5.1); Sodium 139 mEq/L (136-145); Troponin I < 0.03 ng/mL (< 0.04); eGFR For African Americans > 60 (> 60); eGFR For Non-African Americans > 60 (> 60)
[2020-07-05 12:54] LABS: Adenovirus Not Detected (Not Detect); Bordetella Pertussis Not Detected (Not Detect); Chlamydophila pneumoniae Not Detected (Not Detect); Coronavirus 229E Not Detected (Not Detect); Coronavirus HKU1 Not Detected (Not Detect); Coronavirus NL63 Not Detected (Not Detect); Coronavirus OC43 Not Detected (Not Detect); Human Metapneumovirus Not Detected (Not Detect); Human Rhinovirus/Enterovirus Not Detected (Not Detect); Influenza A Subtype 2009 H1 Not Detected (Not Detect); Influenza B Not Detected (Not Detect); Mycoplasma pneumoniae Not Detected (Not Detect); Parainfluenza Virus 1 Not Detected (Not Detect); Parainfluenza Virus 2 Not Detected (Not Detect); Parainfluenza Virus 3 Not Detected (Not Detect); Parainfluenza Virus 4 Not Detected (Not Detect); Respiratory Syncytial Virus Not Detected (Not Detect); SARS-CoV-2 Not Detected (Not Detect)
[2020-07-05] MEDS ORDERED: 0.9 % Sodium Chloride 500 ML IVC ONE (13:36)
[2020-07-05 14:07] LABS: VBG HCO3 42 mEq/L (21-27); VBG PCO2 85 mmHg (41-51); VBG PO2 121 mmHg (25-50)
[2020-07-05] MEDS ORDERED: Albuterol 2.5 MG/3 ML NEBULIZER IH PRN (15:52)
[2020-07-05] MEDS ORDERED: Naloxone 0.4 MG/ML INJ IVP PRN (15:54)
[2020-07-05] MEDS ORDERED: Acetaminophen 325 MG TABLET PO PRN (15:54)
[2020-07-05] MEDS ORDERED: Ondansetron 4 MG/2 ML VIAL IVP PRN (15:54)
[2020-07-05] MEDS ORDERED: 0.9 % Sodium Chloride 1,000 ML IVC ONE (16:34)
[2020-07-05] MEDS: *HR* Heparin 5,000 UNIT/ML VIAL SQ SCH (17:26)
[2020-07-05] MEDS: Albuterol 2.5 MG/3 ML NEBULIZER IH SCH ×3 (18:23→23:52)
[2020-07-05 18:26] LABS: VBG HCO3 38 mEq/L (21-27); VBG PCO2 80 mmHg (41-51); VBG PH 7.29 pH Units (7.32-7.42); VBG PO2 91 mmHg (25-50)
[2020-07-05] MEDS: *HR* LORazepam 1 MG TABLET PO SCH (20:19)
[2020-07-05] MEDS: Magnesium Oxide 400 MG TABLET PO SCH (20:20)
[2020-07-05] MEDS: levETIRAcetam 250 MG TABLET PO SCH (20:20)
[2020-07-05] MEDS: Cyanocobalamin (B-12) 1,000 MCG TABLET PO SCH (20:24)
[2020-07-06] MEDS: Albuterol 2.5 MG/3 ML NEBULIZER IH SCH ×2 (03:25→08:33)
[2020-07-06] MEDS: *HR* Heparin 5,000 UNIT/ML VIAL SQ SCH ×2 (05:38→16:49)
[2020-07-06] MEDS: Azithromycin 250 MG TABLET PO SCH (07:44)
[2020-07-06] MEDS: Furosemide 40 MG TABLET PO SCH (07:44)
[2020-07-06] MEDS: Cholecalciferol (D-3) 1,000 UNIT (25MCG) TABLET PO SCH (07:44)
[2020-07-06] MEDS: DilTIAZem CD (24hr) 180 MG CAP.ER.24H PO SCH (07:44)
[2020-07-06] MEDS: Aspirin Enteric Coated 81 MG Tablet PO SCH (07:44)
[2020-07-06] MEDS: predniSONE 20 MG TABLET PO SCH (07:44)
[2020-07-06] MEDS: levETIRAcetam 250 MG TABLET PO SCH ×2 (07:49→20:10)
[2020-07-06] MEDS: *HR* LORazepam 1 MG TABLET PO SCH ×2 (07:50→20:11)
[2020-07-06] MEDS ORDERED: (Roflumilast [Daliresp] 500 MCG) PO SCH (09:00)
[2020-07-06 09:54] LABS: Basophils % 0.2 %; Eosinophils % 0.2 %; Hematocrit 37.2 % (35.3-44.9); Hemoglobin 11.4 g/dL (11.5-15.4); Immature Granulocytes % 0.9 % (0-4); Lymphocytes % 7.1 %; Mean Corpuscular HGB Conc 30.6 g/dL (31.6-35.5); Mean Corpuscular Hemoglobin 31.2 pg (28.0-33.3); Mean Corpuscular Volume 101.9 fL (83.0-100.0); Mean Platelet Volume 9.9 fL (9.4-12.4); Monocytes # 0.9 K/mcL (0.0-1.3); Monocytes % 6.5 %; Neutrophils # 11.5 K/mcL (1.6-8.9); Platelet Count 327 K/mcL (140-400); Red Blood Count 3.65 M/mcL (3.82-4.97); Red Cell Distribution Width 13.9 % (11.5-14.5); Segmented Neutrophils % 85.1 %; White Blood Count 13.5 K/mcL (4.3-11.1)
[2020-07-06] MEDS ORDERED: Ipratropium/Albuterol Neb 3 ML IH PRN (10:05)
[2020-07-06 10:09] LABS: Alanine Aminotransferase 7 Units/L (7-52); Albumin 3.6 g/dL (3.5-5.7); Albumin/Globulin Ratio 1.1 (1.1-2.2); Alkaline Phosphatase 84 Units/L (34-104); Aspartate Amino Transferase 9 Units/L (13-39); BUN/Creatinine Ratio 30 (6-26); Bilirubin,Total 0.2 mg/dL (0.3-1.0); Blood Urea Nitrogen 24 mg/dL (8-23); Calcium 9.7 mg/dL (8.6-10.3); Carbon Dioxide 31 mEq/L (23-29); Chloride 94 mEq/L (98-107); Globulin 3.4 g/dL (2.4-3.5); Glucose 128 mg/dL (70-105); Osmolality,Calculated 290 (280-300); Sodium 137 mEq/L (136-145); eGFR For African Americans > 60 (> 60); eGFR For Non-African Americans > 60 (> 60)
[2020-07-06] MEDS ORDERED: Albuterol 2.5 MG/3 ML NEBULIZER IH PRN (10:15)
[2020-07-06] MEDS: Levalbuterol Neb 1.25 MG/3 ML IH SCH ×3 (11:20→21:59)
[2020-07-06] MEDS: Cyanocobalamin (B-12) 1,000 MCG TABLET PO SCH (20:11)
[2020-07-06] MEDS: Magnesium Oxide 400 MG TABLET PO SCH (20:11)
[2020-07-07 03:33] LABS: Basophils % 0.2 %; Eosinophils % 0.2 %; Hematocrit 34.6 % (35.3-44.9); Hemoglobin 10.5 g/dL (11.5-15.4); Immature Granulocytes % 1.1 % (0-4); Lymphocytes # 1.3 K/mcL (0.6-4.6); Lymphocytes % 13.5 %; Mean Corpuscular HGB Conc 30.3 g/dL (31.6-35.5); Mean Corpuscular Hemoglobin 30.6 pg (28.0-33.3); Mean Corpuscular Volume 100.9 fL (83.0-100.0); Mean Platelet Volume 9.4 fL (9.4-12.4); Monocytes # 0.9 K/mcL (0.0-1.3); Monocytes % 9.3 %; Neutrophils # 7.1 K/mcL (1.6-8.9); Platelet Count 239 K/mcL (140-400); Red Blood Count 3.43 M/mcL (3.82-4.97); Red Cell Distribution Width 13.9 % (11.5-14.5); Segmented Neutrophils % 75.7 %; White Blood Count 9.4 K/mcL (4.3-11.1)
[2020-07-07 03:39] LABS: VBG HCO3 41 mEq/L (21-27); VBG PCO2 51 mmHg (41-51); VBG PH 7.52 pH Units (7.32-7.42); VBG PO2 179 mmHg (25-50)
[2020-07-07 03:52] LABS: BUN/Creatinine Ratio 35 (6-26); Blood Urea Nitrogen 24 mg/dL (8-23); Calcium 9.3 mg/dL (8.6-10.3); Carbon Dioxide 39 mEq/L (23-29); Chloride 96 mEq/L (98-107); Glucose 103 mg/dL (70-105); Osmolality,Calculated 292 (280-300); Potassium 3.8 mEq/L (3.5-5.1); Sodium 139 mEq/L (136-145); eGFR For African Americans > 60 (> 60); eGFR For Non-African Americans > 60 (> 60)
[2020-07-07] MEDS: Levalbuterol Neb 1.25 MG/3 ML IH SCH ×2 (04:10→10:44)
[2020-07-07] MEDS: *HR* Heparin 5,000 UNIT/ML VIAL SQ SCH (05:10)
[2020-07-07] MEDS: Furosemide 40 MG TABLET PO SCH (08:09)
[2020-07-07] MEDS: Cholecalciferol (D-3) 1,000 UNIT (25MCG) TABLET PO SCH (08:09)
[2020-07-07] MEDS: predniSONE 20 MG TABLET PO SCH (08:09)
[2020-07-07] MEDS: Aspirin Enteric Coated 81 MG Tablet PO SCH (08:10)
[2020-07-07] MEDS: Azithromycin 250 MG TABLET PO SCH (08:10)
[2020-07-07] MEDS: DilTIAZem CD (24hr) 180 MG CAP.ER.24H PO SCH (08:10)
[2020-07-07] MEDS: *HR* LORazepam 1 MG TABLET PO SCH (08:12)
[2020-07-07] MEDS: levETIRAcetam 250 MG TABLET PO SCH (08:12)
[2020-07-07 11:05] VITALS: BP 130/80
== END 2020-07-07 13:20 | disposition home or self-care (01) ==
LOC: 2ANU 10:56 → EMEROOARM 10:56 → SUATTDRO 15:25 → 2ANU 17:09
PROVIDERS: ADMIT Internal Medicine; ATTEND Internal Medicine